=== PATIENT | male | born 1955 | race Caucasian/White ===

== ENCOUNTER → 2024-08-11 09:55 | Outpatient (REF) | payer BC, SELFPAY | LOC: RCS 09:55 | PROVIDERS: ATTENDING PHYSICIAN Internal Medicine Cardiovascular Disease; FAMILY PHYSICIAN Family Medicine | DX: R06.02 Shortness of breath (principal) | CPT/HCPCS: 93306 ==

== ENCOUNTER 2024-08-11 18:32 | Inpatient (IN) | payer BC, MEDICARE, SELFPAY ==
[2024-08-11 15:34] VITALS: BP 115/64
[2024-08-11 16:11] LABS: % Basophils 0.4 % (0-2); % Eosinophils 0.4 % (0-6); % Immature Granulocytes 0.6 % (0-0.5); % Lymphocytes 12.2 % (20.5-51.1); % Monocytes 7.8 % (1.7-9.3); % Neutrophils 78.6 % (42.2-75.2); ALT (SGPT) 17 U/L (0-50); AST (SGOT) 22 U/L (17-59); Absolute Basophils 0.1 10^3/uL (0-0.2); Absolute Eosinophils 0.1 10^3/uL (0-0.7); Absolute Immature Granulocytes 0.1 10^3/uL (0-0.05); Absolute Monocytes 1.3 10^3/uL (0.1-0.6); Absolute Neutrophils 12.7 10^3/uL (1.4-6.5); Albumin 3.4 g/dl (3.5-5.0); Alkaline Phosphatase 94 U/L (38-126); Blood Urea Nitrogen 34 mg/dl (9-20); Calcium 9.2 mg/dl (8.4-10.2); Carbon Dioxide 27 mmol/L (22-30); Chloride 98 mmol/L (98-107); Glucose 196 mg/dl (70-99); Hematocrit 34.7 % (39.0-52.0); Hemoglobin 11.3 g/dL (13.0-18.0); Mean Corp Hgb Conc. 32.6 g/dL (33.0-37.0); Mean Corpuscular Hgb 27.8 pg (27.0-31.0); Mean Corpuscular Volume 85.5 fL (80.0-94.0); Mean Platelet Volume 10.9 fL (7.4-10.4); Nucleated Red Blood Cells % 0 % (-); Platelet Count 361 10^3/uL (130-400); Potassium 5.1 mmol/L (3.5-5.1); Red Blood Cell Count 4.06 10^6/uL (4.70-6.10); Red Cell Dist. Width 13.1 % (11.5-14.5); Sodium 135 mmol/L (135-145); Total Bilirubin 0.8 mg/dl (0.2-1.3); Total Protein 6.9 g/dl (6.3-8.2); White Blood Cell Count 16.1 10^3/uL (4.8-10.8); eGFR 49.47
[2024-08-11 16:22] LABS: COVID-19 Antigen Negative (Negative)
[2024-08-11 16:25] LABS: Troponin I 0.095 ng/ml
--- NOTE | 2024-08-11 16:36 | ED.GENMED ---
History of Present Illness
General
Chief Complaint: Chest Problem
Time Seen by Provider: 08/11/24 16:28
History of Present Illness
History of Present Illness:
69-year-old male presents to the emergency department for evaluation of dry cough, dizziness and shortness of breath with ambulation, fatigue and intermittent fevers for the past 3 months or more. He was seen at [facility] 10 days
ago where extensive workup was not revealing of acute pathology. He was referred to follow-up with his nutritional health coach due to new heart murmur and had an echocardiogram today concerning for a vegetation of the mitral valve. He was referred to the ED
today for admission and IV antibiotics
Review of Systems
Review of Systems
Allergies reviewed?: Yes
All Other Systems: ROS reviewed and negative except as documented in HPI and ROS
Phy Exam
Physical Exam
Physical Exam:
GEN: Well appearing, NAD, WDWN
Eyes: PERRLA, EOMs intact, no scleral icterus
HENT: NCAT, oral mucosa moist
Lungs: CTAB, no wheezes, rales, rhonchi, normal chest wall excursion, frequent dry cough noted
Cardiac: RRR, mild murmur heart best at RUSB
Abdomen: S, NT, ND, NABS, no masses or hepatosplenomegaly
Neuro: AO x 3
MSK: No gross deformity or ecchymosis. No edema. No digital clubbing
Skin: No rashes, petechiae. Normal color, no pallor or jaundice.
Psych: Calm, cooperative, proper hygiene
Course
Orders/Labs/Results
Orders:
Orders
08/11/24 Dinner
2000 calorie (17 carb) Diabetic
08/11/24 15:26
Electrocardiogram (*1) Urgent
Reason for Study: Chest Pain
EKG- Treatment ONCE
08/11/24 15:44
COVID-19 Antigen Urgent
Source: Nasal Swab
Complete Blood Count/With Diff Urgent
Comprehensive Metabolic Panel Urgent
Erythrocyte Sed Rate Urgent
Comment: ADD ON
Ferritin Urgent
Comment: ADD ON
Folate Urgent
Comment: ADD ON
Iron Urgent
Comment: AD ON
NT-proBNP Urgent
Comment: ADD ON
Reticulocyte Count Urgent
Comment: ADD ON
Total Iron Binding Urgent
Comment: ADD ON
Troponin I Urgent
Vitamin B12 Urgent
Comment: ADD ON
INF RAPID [Influenza A+B Rapid Molecular] Urgent
STEVE Source: Nasal Swab
Specimen Description:
08/11/24 16:29
CR Chest - 2 Views Urgent
Comment:
Reason For Exam: SOB
08/11/24 16:36
Add On- LAB Urgent
Tests Added?: BNP
08/11/24 16:49
Blood Culture Urgent
STEVE Source: Blood/Venous
Specimen Description:
Cefepime HCl [Maxipime] 2,000 mg IV NOW STA
08/11/24 16:56
Blood Culture Q30M
STEVE Source: Blood/Venous
Specimen Description:
08/11/24 17:00
Blood Culture Q30M
STEVE Source: Blood/Venous
Specimen Description:
08/11/24 17:04
Sterile Water [Sterile Water For Injection] 20 ml .ROUTE .STK-MED
08/11/24 17:13
Vancomycin [Vancocin] 2,000 mg 0.9% Sodium Chloride 500 ml [Nss] 500 ml IV NOW
08/11/24 17:14
Acetaminophen [Tylenol] 1,000 mg PO NOW STA
08/11/24 17:17
Add On- LAB Urgent
Tests Added?: ESR, sed rate
08/11/24 17:41
Admit/Transfer Patient As Directed
Co-Sign Provider:
Level of Care: Inpatient admission
Assign to:: IVU
Physician / Group: Jeanne
Diagnosis: Endocarditis
Reason for Hospitalization: IV antibiotics, ID consult, cardio consult
Expected length of stay greater than two midnights?: Yes
ELOS- Estimated Length of Stay in days: 7
I certify the patient meets the requirements for IP care: Yes
08/11/24 17:43
PRN Pain Medication Management As Directed
May give lesser potent ordered pain med per pt: Yes
preference::
Protocol:: Medication orders for pain may be administered in a
manner that supports deferring to patient preference
when the pt is:
- Requesting an ordered lesser potent pain medication.
Least to most potent pain medications are defined
as: acetaminophen < NSAID < tramadol < opioids
(morphine, oxycodone, hydromorphone).
- Requesting a lesser dose of the same medication IF
ORDERED.
- Requesting a less intrusive route of administration
if both routes are prescribed by the provider (PO <
IV).
08/11/24 17:45
Code Status As Directed
Resuscitation Status: Full Code
08/11/24 17:50
0.9% Sodium Chloride 500 ml [Nss] 500 ml IV BOLUS
08/11/24 18:02
Add On- LAB Routine
Tests Added?: iron, ferritin, TIBC, retic, B12, folate
08/11/24 19:57
0.9% Sodium Chloride 1000 ml [Nss] 1,000 ml IV 80 mls/hr
Acetaminophen [Tylenol] 650 mg PO Q6HPRN PRN
Benzonatate [Tessalon Perles] 100 mg PO TIDPRN PRN
Dextrose 50%-Water [Dextrose 50% Syringe] 12.5 grams IV [id number] PRN
Enoxaparin Sodium [Lovenox] 40 mg SC QPM
Glucagon [GlucaGen] 1 mg IM PRN PRN
08/11/24 19:57
CARDIOLOGY CONSULT Routine
Consulting Provider: Dean Garcia
Was physician already notified: Yes
Cardiothoracic Surgery Consult Routine
Consulting Provider: Juarez Hart
Was physician already notified: Yes
DIETARY CONSULT Routine
Reason for Consult: malnutrition
INFECTIOUS DISEASE CONSULT Routine
Consulting Provider: Lay Santos
Was physician already notified: Yes
Activity As Directed
Activity Level: Ambulate
Bedside Glucose Monitoring As Directed
Frequency: AC&HS
Additional Instructions:: Change to q6h if pt on TPN, tube feeding or not eating
Orthostatic Vital Signs As Directed
Orthostatic VS Frequency: Now
Ot Eval And Treat Routine
Pt Eval And Treat Routine
Activity Level: Ambulate
DX Deep Vein Thrombosis Video Routine
08/11/24 22:00
Troponin I Q6H
08/12/24 04:00
Troponin I Q6H
08/12/24 06:00
CBC/With Diff [Complete Blood Count/With Diff] IN AM
CMP [Comprehensive Metabolic Panel] IN AM
Glycohemoglobin (HgbA1c) IN AM
Blood Culture Routine
STEVE Source: Blood/Venous
Specimen Description:
08/12/24 07:30
Insulin Aspart Corrective Low [Novolog Flexpen-Low Resistance] See Protocol SC AC
08/12/24 08:00
Aspirin Chewable [Low Strength Aspirin] 81 mg PO DAILY
Rosuvastatin Calcium [Crestor] 5 mg PO DAILY
08/13/24 06:00
CBC/With Diff [Complete Blood Count/With Diff] IN AM
CMP [Comprehensive Metabolic Panel] IN AM
Abnormal Lab Results
08/11/24
15:44
WBC 16.1 H 10^3/uL
(4.8-10.8)
RBC 4.06 L 10^6/uL
(4.70-6.10)
Hgb 11.3 L g/dL
(13.0-18.0)
Hct 34.7 L %
(39.0-52.0)
MCHC 32.6 L g/dL
(33.0-37.0)
MPV 10.9 H fL
(7.4-10.4)
Abs Immat Gran (auto) 0.1 H 10^3/uL
(0-0.05)
Absolute Neuts (auto) 12.7 H 10^3/uL
(1.4-6.5)
Absolute Monos (auto) 1.3 H 10^3/uL
(0.1-0.6)
Immature Gran % 0.6 H %
(0-0.5)
Neutrophils % 78.6 H %
(42.2-75.2)
Lymphocytes % 12.2 L %
(20.5-51.1)
ESR 69 H mm/hour
(0-20)
BUN 34 H mg/dl
(9-20)
Creatinine 1.5 H mg/dL
(0.7-1.3)
Glucose 196 H mg/dl
(70-99)
Iron 30 L ug/dl
(49-181)
% Saturation 11 L %
(20-50)
Troponin I 0.095 H* ng/ml
Albumin 3.4 L g/dl
(3.5-5.0)
08/11/24 15:44
08/11/24 15:44
Vital Signs
Initial and Last Documented VS:
Initial Vital Signs
Temp Pulse Resp BP Pulse Ox
101.0 F H 76 18 115/64 98
08/11/24 15:34 08/11/24 15:34 08/11/24 15:34 08/11/24 15:34 08/11/24 15:34
Last Documented Vital Signs
Temp Pulse Resp BP Pulse Ox
97.9 F 63 20 93/62 97
08/11/24 19:54 08/11/24 18:15 08/11/24 19:54 08/11/24 18:00 08/11/24 19:54
MDM/Problems Addressed
MDM/Problems Addressed:
69-year-old male presents due to suspected endocarditis based on outpatient echo showing vegetations on the mitral valve. 3 sets of blood cultures are sent and broad-spectrum IV antibiotics initiated, will be admitted to the medical service.
Initial empiric antibiotics given as the patient is acutely febrile after cultures were sent
*Critical Care Note
Total Time (30-74mins, 75-104mins- exclusive of procedures): Not Applicable
ED Attending Note
-
Portions of this chart may have been created with voice recognition software.� Occasional wrong word or��sound alike� substitutions may have occurred due to the inherent limitations of voice recognition software.
Discharge Plan
Departure
Patient Disposition: Admit
Date of Disposition: 08/11/24
Time of Disposition: 17:10
Admit to: Med/Surg
Presentation/result/management discussed w/ accepting MD/DO: Hospitalist
Discharge Problem:
Endocarditis
Interventions
Interventions:
*Risk Screen - Suicide Last Done: 08/11/24 15:34
*General Assessment Last Done: 08/11/24 15:34
*Neglect/Abuse Screening Last Done: 08/11/24 15:34
ED- Fall Risk Assessment Last Done: 08/11/24 16:39
*ED COVID-19 Vaccine History Last Done: 08/11/24 15:34
*Nursing Disposition Last Done: 08/11/24 19:58
ED- Cardiac Assessment Last Done: 08/11/24 16:39
ED- Pulmonary Assessment Last Done: 08/11/24 16:39
Discharge Date and Time
Discharge Date/Time: 08/11/24 19:59
[2024-08-11 16:39] VITALS: BMI 30.4
[2024-08-11 16:44] VITALS: BP 98/62
[2024-08-11 17:00] VITALS: BP 99/67
[2024-08-11] MEDS: MAXIPIME 2000 MG IV (17:05)
[2024-08-11] MEDS: TYLENOL 1000 MG PO (17:19)
[2024-08-11 17:25] LABS: NT-proBNP 247 pg/ml
[2024-08-11 17:41] LABS: Erythrocyte Sed Rate 69 mm/hour (0-20)
--- NOTE | 2024-08-11 17:50 | HPS.HSE ---
Family Physician
-
Family Physician: Jesus Mullins
Chief Complaint
-
Fevers, cough, weakness
History of Present Illness
69-year-old male here with complaints of intermittent fevers, chills, weight loss, weakness, dyspnea on exertion, and cough over the past 2 months. at the bedside providing most of the history.
Apparently was seen in [facility] emergency room for the above complaints about 10 days ago and discharged without a clear diagnosis. Blood cultures at that time were not done.
He has had intermittent fevers and chills since early May. 31 pound weight loss with anorexia. Complaining of intermittent lightheadedness.
Has not seen a dentist in 2 years. Denies history of malignancy.
Recently did a fecal immunochemical test that was positive for blood. He is due to see GI as an outpatient for colonoscopy. Has never had a colonoscopy.
Medical History
Past Medical History
Past Medical History: Reports Other
Additional Past Medical History:
Essential hypertension
DM2
Hyperlipidemia
Obesity
Past Surgical History: Reports Other
Additional Past Surgical History:
Gastric bypass surgery over 15 years ago
Social History
Tobacco: Non-smoker
Alcohol: None
Drug: None
Personal:
Living: With Family
Family History
Family History: CAD (Father at the age of 67 due to DE) and Cancer (Mother at the age of 73, colon cancer)
Allergies / Home Medications
Allergies reflects when Allergies were last updated in [facility].
Home Medications with original date entered in [facility]
Allergy/Medication List:
Allergies
Allergy/AdvReac Type Severity Reaction Status Date / Time
No Known Allergies Allergy Verified 08/11/24 15:38
Home Medications
aspirin 81 mg chewable tablet 81 mg PO DAILY 08/11/24
benzonatate 100 mg capsule 100 mg PO TIDPRN PRN cough 08/11/24
ipratropium bromide 21 mcg (0.03 %) nasal spray 2 spray intranasal BIDPRN PRN congestion 08/11/24
metformin 500 mg tablet,extended release 24hr (osmotic) 1,000 mg PO DAILY 08/11/24
metformin 500 mg tablet,extended release 24hr (osmotic) 500 mg PO QPM 08/11/24
olmesartan 40 mg-amlodipine 5 mg-hydrochlorothiazide 12.5 mg tablet 1 tab PO DAILY 08/11/24
ondansetron HCl 8 mg tablet 8 mg PO Q8HPRN PRN nausea 08/11/24
rosuvastatin 5 mg tablet 5 mg PO DAILY 08/11/24
semaglutide 14 mg tablet (Rybelsus) 14 mg PO DAILY 08/11/24
therapeutic multivitamin 1 tab PO DAILY 08/11/24
Review of Systems
-
History Source: Patient and Family
A 12 point ROS was completed and negative except as noted: Yes
Constitutional: Reports Fever and Weight Loss
Respiratory: Reports Cough
Physical Exam
Vital Signs
Vital Signs
Temp Pulse Resp BP Pulse Ox
101.3 F H 64 17 99/67 97
08/11/24 16:39 08/11/24 17:00 08/11/24 17:00 08/11/24 17:00 08/11/24 17:00
Physical Exam
General: Well Developed, Well Nourished, No Apparent Distress and Comfortable
HEENT: NormoCephalic, Anicteric and Moist mucous membranes
Respiratory: Clear
Cardiac: S1/S2, Regular Rhythm and Murmur (2 out of 6 systolic murmur left sternal border)
GI: Soft, Non Tender and Non Distended
Genito-urinary: Deferred by me
Musculoskeletal: No Clubbing, No Cyanosis and No Edema
Skin: Warm and Dry
Neuro: AO x 3
Hematologic/Lymphatic: No Lymphadenopathy
Psych: Calm
Laboratory Results
-
08/11/24 15:44
08/11/24 15:44
Laboratory Results
Total Bilirubin 0.8 mg/dl (0.2-1.3) 08/11/24 15:44
AST 22 U/L (17-59) 08/11/24 15:44
ALT 17 U/L (0-50) 08/11/24 15:44
Alkaline Phosphatase 94 U/L (38-126) 08/11/24 15:44
Troponin I 0.095 ng/ml H* 08/11/24 15:44
Impression/Plan
-
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 Mild mitral
regurgitation. Concern for perforation of the anterior leaflet.
Admit to IVU. Consult cardiology, infectious disease, CT surgery.
3 sets of blood culture sent by the emergency room. Received a dose of cefepime by the ER, hold further antibiotics. Discussed with ID. Recheck blood cultures in the morning.
Source of endocarditis unclear but most likely dental in origin. Has not seen a dentist in 2 years.
ALICIA -likely due to volume depletion due to anorexia, due to suspected endocarditis. Hypotension noted. Hold antihypertensives. IV fluid bolus now, continue IV fluids overnight.
Troponin elevation -suspect acute nonischemic myocardial injury due to sepsis. No reports of chest pain. Will trend troponins. EKG with normal sinus rhythm, left axis deviation.
Normocytic anemia -most likely due to endocarditis. Heme positive stools by history concerning, scheduled for outpatient GI follow-up and colonoscopy. Check anemia labs.
Protein/calorie malnutrition -31 pound weight loss in 2 months. Albumin 3.4. Severity of malnutrition unknown. Consult nutrition.
DM 2 with hyperglycemia -hold metformin, semaglutide. Use low resistance insulin scale, check hemoglobin A1c.
Essential hypertension -as above, hold meds due to hypotension.
Hyperlipidemia -on rosuvastatin.
Obesity due to excess calories -history of gastric bypass.
Full code
updated at the bedside
[2024-08-11 18:00] VITALS: BP 93/62
[2024-08-11] MEDS: NSS 500 IV (18:02)
--- NOTE | 2024-08-11 18:16 | W.PN.CD ---
Today's Communication / Plan
-
ID Consult
Abx
Impression / Plan
-
A: 69-year-old male with intermittent fevers chills weight loss over the last 2 months who came into the cardiology office after echocardiogram showed concerning signs of endocarditis involving the mitral valve.
Plan:
Likely mitral valve endocarditis
-Blood cultures prior to antibiotics
-ID consult for antibiotics
-BRENDA Wednesday n.p.o. after midnight Wednesday
-Daily EKGs
Hyperlipidemia
-Continue statin
Hypertension
-Consider holding given borderline blood pressure
Physical Exam
Vital Signs/Labs
Vital Signs
Temp Pulse Resp BP Pulse Ox
99.1 F 60 17 99/67 96
08/11/24 18:09 08/11/24 17:45 08/11/24 17:45 08/11/24 17:00 08/11/24 17:45
08/10/24 08/11/24 08/12/24
06:59 06:59 06:59
Actual Weight 211 lb 13.828 oz
08/11/24 15:44
08/11/24 15:44
08/11/24
15:44
Vis-C-Yniyfjukjaa Pept 247
LAB Results
08/11/24
15:44
Troponin I 0.095 H*
Physical Exam
Constitutional: No acute distress
EENT: Anicteric
Cardiovascular: Rhythm & rate is regular and Pedal edema is absent
Respiratory: Respiratory effort normal and Lungs clear to auscul.
GI: Soft
Neuro/Psych: AO x 3
Data Reviewed
-
Date of Service: August 11, 2024
EKG: Tracing Personally Visualized and interpreted (sr)
Echo: Tracing Personally Visualized and interpreted
Labs: Labs Reviewed by me
[2024-08-11 18:19] LABS: Reticulocyte Count 1.4 % (0.4-2.8)
[2024-08-11 18:35] LABS: Iron 30 ug/dl (49-181)
[2024-08-11 18:44] LABS: Percent Saturation 11 % (20-50); Total Iron Binding Capacity 272 ug/dl (261-462)
[2024-08-11 19:42] LABS: Folate 18.7 ng/ml (2.76-20); Vitamin B12 457 pg/ml (239-931)
[2024-08-11 19:53] VITALS: BP 102/64
[2024-08-11] MEDS: LOVENOX 40 MG SC (20:12)
[2024-08-11] MEDS: NSS 1000 IV (20:13)
[2024-08-11 21:06] LABS: Glucose - Point of Care 184 mg/dl (70-99)
[2024-08-11 22:04] VITALS: BP 99/62
--- NOTE | 2024-08-11 22:30 | PTCARENOTE ---
Received patient from the ED. Patient awake, alert, and oriented. bedside. BP 102/64, Sinus di 50s, 97% on room air and temp 98.0. Discussed plan of care with patient. Patient verbalized understanding. Call nixon within reach.
[2024-08-11 22:43] LABS: Troponin I 0.074 ng/ml
[2024-08-12 04:28] VITALS: BP 118/70
[2024-08-12 04:48] LABS: % Basophils 0.4 % (0-2); % Eosinophils 1.4 % (0-6); % Immature Granulocytes 0.6 % (0-0.5); % Lymphocytes 15.2 % (20.5-51.1); % Monocytes 9.6 % (1.7-9.3); % Neutrophils 72.8 % (42.2-75.2); Absolute Basophils 0.1 10^3/uL (0-0.2); Absolute Eosinophils 0.2 10^3/uL (0-0.7); Absolute Immature Granulocytes 0.1 10^3/uL (0-0.05); Absolute Lymphocytes 1.9 10^3/uL (1.2-3.4); Absolute Monocytes 1.2 10^3/uL (0.1-0.6); Hematocrit 34.4 % (39.0-52.0); Hemoglobin 10.6 g/dL (13.0-18.0); Mean Corp Hgb Conc. 30.8 g/dL (33.0-37.0); Mean Corpuscular Hgb 27.2 pg (27.0-31.0); Mean Corpuscular Volume 88.2 fL (80.0-94.0); Mean Platelet Volume 10.2 fL (7.4-10.4); Nucleated Red Blood Cells % 0 % (-); Platelet Count 305 10^3/uL (130-400); Red Cell Dist. Width 13.3 % (11.5-14.5); White Blood Cell Count 12.4 10^3/uL (4.8-10.8)
[2024-08-12 05:07] LABS: ALT (SGPT) 16 U/L (0-50); AST (SGOT) 22 U/L (17-59); Alkaline Phosphatase 78 U/L (38-126); Blood Urea Nitrogen 33 mg/dl (9-20); Calcium 8.8 mg/dl (8.4-10.2); Carbon Dioxide 25 mmol/L (22-30); Chloride 102 mmol/L (98-107); Estimated Creatinine Clearance 72 ml/min; Glucose 156 mg/dl (70-99); Sodium 138 mmol/L (135-145); Total Bilirubin 0.7 mg/dl (0.2-1.3); Total Protein 6.5 g/dl (6.3-8.2); eGFR > 60.00
[2024-08-12 05:30] LABS: Troponin I 0.049 ng/ml
--- NOTE | 2024-08-12 07:28 | CONSULT.CT ---
Addendum entered and electronically signed by Juarez Hart MD 08/12/24 09:15:
I saw and examined the patient.
The PA's note was reviewed and I agree with the note.
Comment:
Check BRENDA (plan is for Wednesday)
F/U BCx
Continue ABX
Original Note:
Consultation
-
Date/Time Consultation Requested: 08/11 1957
Date/Time Consultation Performed: 08/12 730
Requesting Provider: Dr. Couch
Performing Provider: Yeimi BLACKWELL for Dr. Hart
Reason for Consultation: Endocarditis
Patient History
Physicians
Family Physician: Jesus Mullins
Inpatient Sleeve Wheel Maker: Dr. Smith
History of Present Illness
69-year-old male presented to [facility] on 08/11 with complaints of fevers, chills, weight loss, weakness, ARMIJO, and cough over the past 2 months. He was at [facility] emergency room about 10 days ago with similar symptoms and
was discharged. He has had intermittent fevers and chills since May and has a 30 pound weight loss. Along with the weight loss patient admits to doing a fecal immunochemical test that was positive for blood and was due to see a
oil well services field supervisor for a colonoscopy on wednesday.
Upon admission, an echocardiogram was performed. TTE showed a LVEF of 65-70% a mildly dilated RV, moderate LA dilatation, and a possible mass on the anterior leaflet of the mitral valve causing mild MR. Therefore CT surgery was consulted for
surgical evaluation.
Past Medical History
Past Medical History: HTN and Hypercholesterolemia
DM2
Obesity
Past Surgical History
Gastric bypass surgery
Dental History
Has not seen a dentist in years
Family History
Mother: Cause of (Cancer)
Father: Cause of (AR)
Family Medical History: CAD
Social History
Alcohol: None
Drug: None
Tobacco: Non-Smoker
Personal:
Living: With Family
Employment: Retired
Allergies
Allergy/AdvReac Type Severity Reaction Status Date / Time
No Known Allergies Allergy Verified 08/11/24 15:38
Home Medications
�Medication �Instructions �Recorded �Confirmed �Type
aspirin 81 mg chewable tablet 81 mg PO DAILY 08/11/24 08/11/24 History
benzonatate 100 mg capsule 100 mg PO TIDPRN PRN cough 08/11/24 08/11/24 History
ipratropium bromide 21 mcg (0.03 2 spray intranasal BIDPRN PRN 08/11/24 08/11/24 History
%) nasal spray congestion
metformin 500 mg tablet,extended 1,000 mg PO DAILY 08/11/24 08/11/24 History
release 24hr (osmotic)
metformin 500 mg tablet,extended 500 mg PO QPM 08/11/24 08/11/24 History
release 24hr (osmotic)
olmesartan 40 mg-amlodipine 5 1 tab PO DAILY 08/11/24 08/11/24 History
mg-hydrochlorothiazide 12.5 mg
tablet
ondansetron HCl 8 mg tablet 8 mg PO Q8HPRN PRN nausea 08/11/24 08/11/24 History
rosuvastatin 5 mg tablet 5 mg PO DAILY 08/11/24 08/11/24 History
semaglutide 14 mg tablet (Rybelsus) 14 mg PO DAILY 08/11/24 08/11/24 History
therapeutic multivitamin 1 tab PO DAILY 08/11/24 08/11/24 History
Review of Systems
-
History Source: Patient and Family
General: Reports Fever, Weight Loss, Fatigue, Night Sweats and Chills
HEENT: Reports No Symptoms
Respiratory: Reports Cough
Cardiac: Reports No Symptoms
Abdomen/GI: Reports Nausea, Vomiting and Diarrhea
: Reports No Symptoms
Musculoskeletal: Reports No Symptoms
Skin: Reports No Symptoms
Neurological: Reports No Symptoms
Vascular: Reports No Symptoms
Physical Exam
Vital Signs
Temp 98.2 F 08/12/24 04:42
Temp route: Oral 08/12/24 04:42
Pulse 57 08/12/24 05:00
Rhythm: Sinus bradycardia 08/11/24 22:53
With- Normal sinus rhythm 08/11/24 22:53
Resp Rate 16 08/12/24 04:42
Blood pressure 118/70 08/12/24 04:28
Blood pressure extremity used: Right upper arm 08/12/24 04:42
Position: Lying 08/12/24 04:42
MAP (cuff-Noah Monitor) 85 08/12/24 04:28
SaO2 95 08/12/24 04:42
Oxygen Mode of Delivery Room air 08/11/24 22:53
Can the patient verbally communicate their pain? Yes 08/11/24 22:53
Actual Weight 96.1 kg 08/11/24 16:39
Body Mass Index (BMI) 30.4 08/11/24 16:39
Labs
08/12/24 04:36
08/12/24 04:35
Troponin I 0.049 ng/ml H* D 08/12/24 04:35
Mot-P-Irhzxjobfge Pept 247 pg/ml 08/11/24 15:44
Exam
General: Well Developed and Well Nourished
HEENT: Normocephalic
Respiratory: Clear
Cardiac: S1/S2 and Murmur
GI: Soft
Rectal: Deferred by Provider
Skin: Warm and Dry
Neuro: AO x 3
Extremities: Pulses (+1)
Lymph: No Lymphadenopathy
Psych: Calm
Assessment / Plan
-
69-year-old male with past medical history listed above presented to [facility] with complaints of fever chills and 30 pound weight loss. TTE revealed a possible endocarditis and CT surgery was consulted for surgical evaluation.
#Possible endocarditis
-Follow-up blood cultures, trend temperatures and leukocytosis
-Agree with BRENDA on Wednesday
-Agree with ID consult
-Once patient is deemed a surgical candidate, preoperative workup will be started
#History of heme positive stools
- Continue to test stools while in the hospital
� Continue to trend hemoglobin
--- NOTE | 2024-08-12 08:00 | PTCARENOTE ---
Received patient from prev Rn. walking rounds done. patient resting in bed at time of assessment. at bedside. Patient AAOx3. VSS. SB HR 40s. 97% on RA. IVFs infusing as ordered. independent in care. will continue to monitor.
--- NOTE | 2024-08-12 08:30 | CON.ID ---
Consultation
-
Date/Time Consultation Requested: 08/11/20241956
Date/Time Consultation Performed: 08/12/2024 0835
Requesting Provider: Dr. Khoa Angel
Performing Provider: Dr. Lay Santos
Reason for Consultation: Mitral valve vegetation
Chief Complaint / Past History
Chief Complaint
Fever x 2 months
History of Present Illness
History obtained from the patient as well as from his who is a nurse. He is a 69-year-old male with history of hypertension, DM2, who has not been feeling well for the past 2 months. He has been having intermittent fevers, chills, poor
appetite, unintentional 30 pound weight loss, dry cough. PCP workup unremarkable. He went to [facility] ER about a week and a half ago with normal chest x-ray, negative DVT, no blood cultures obtained per . He was discharged to follow-up
with his PCP. Patient also noted to be bradycardia. Patient was seen by cardiology yesterday in office. Transthoracic echocardiogram noted to have a vegetation on the mitral valve. Patient sent to the ER. He is febrile to 101.3 WBC 16.1.
Blood cultures x 3 are now positive for GPC in chains. Patient did receive cefepime in the ER. Patient reports in February, he stepped on a sarah nail that went through his right foot sneaker. He received tetanus shot. The wound healed. No recent
dental work. Never had a colonoscopy. Recently FIT test was positive. 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
Past History
Additional Past Medical History:
DM
Dyslipidemia
HTN
Hx Gastric Bypass
Allergy History:
No Known Allergies Allergy (Verified 08/11/24 15:38)
Medications Reviewed: Yes
Current Antibiotics:
s/p cefepime in ED
Social History
Tobacco: Non-Smoker
Alcohol: None
Drug: None
Personal:
Living: With Family
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
Family History
Family History: Not Pertinent
Review of Systems
Review of Systems
General: Fever, Chills and Change in Appetite
HEENT: Negative Sinus Problems, Headache or Pharyngitis
Cardiovascular: Negative Chest Pain or Dyspnea
Respiratory: Cough; Negative Dyspnea
Gasteroenterology: Nausea; Negative Vomiting or Diarrhea
Genital / Urological: Negative Dysuria or Flank Pain
Endocrine: Weakness
Musculoskeletal: Negative Arthralgias
Neurological: Negative Dizziness
All systems: All other systems were reviewed and were negative
Vital Signs
Temp Pulse Resp BP Pulse Ox
98.2 F 57 16 118/70 95
08/12/24 04:42 08/12/24 05:00 08/12/24 04:42 08/12/24 04:28 08/12/24 04:42
Selected Entries
08/11/24
16:39
Temp 101.3 F H
Physical Exam
Physical Exam
Constitutional: Comfortable
Eyes: No Conjunctival Hemorrhage and Sclera Anicteric
Oral: Poor Dentition
Cardiovascular: Regular Rate and S1/S2
Pulmonary: Clear
Gastrointestinal: Soft, Non Tender, Non Distended and Normal Bowel Sounds
Genito-Urinary: Negative CVA Tenderness
Extremities: Negative Edema, Splinter Hemorrhage or Janeway Lesions
Musculoskeletal: Negative Spinal Tenderness
Neurological: AO x 3; Negative Meningeal Signs
Psychological: Calm
Lab / Diagnostic Study Results
08/12/24 04:36
08/12/24 04:35
Abs Immat Gran (auto) 0.1 10^3/uL (0-0.05) H 08/12/24 04:36
Absolute Neuts (auto) 9.0 10^3/uL (1.4-6.5) H 08/12/24 04:36
Absolute Lymphs (auto) 1.9 10^3/uL (1.2-3.4) 08/12/24 04:36
Absolute Monos (auto) 1.2 10^3/uL (0.1-0.6) H 08/12/24 04:36
Absolute Basos (auto) 0.1 10^3/uL (0-0.2) 08/12/24 04:36
Immature Gran % 0.6 % (0-0.5) H 08/12/24 04:36
Neutrophils % 72.8 % (42.2-75.2) 08/12/24 04:36
Lymphocytes % 15.2 % (20.5-51.1) L 08/12/24 04:36
Monocytes % 9.6 % (1.7-9.3) H 08/12/24 04:36
Eosinophils % 1.4 % (0-6) 08/12/24 04:36
Basophils % 0.4 % (0-2) 08/12/24 04:36
ESR 69 mm/hour (0-20) H 08/11/24 15:44
Microbiology Results
Micro:
08/11/24 16:56 Blood Culture - Preliminary
Blood/Venous Positive culture in progress
Gram Stain - Preliminary
08/11/24 17:00 Blood Culture - Preliminary
Blood/Venous Positive culture in progress
Gram Stain - Final
08/11/24 16:49 Blood Culture - Preliminary
Blood/Venous Positive culture in progress
Gram Stain - Preliminary
08/12/24 04:35 Blood Culture - Pending
Blood/Venous
08/11/24 15:44 Influenza Types A & B (JUDIE) - Final
Nasal Swab Negative for Influenza A & B, NAAT
Negative results must be combined with clinical observations
and patient history.
Nucleic Acid Amplification test (NAAT)performed on the
[employer] platform.
CXR: No acute disease of the chest.
Assessment / Plan
# Mitral valve infective endocarditis
# GPC chains bacteremia x 3 sets
# Sepsis: fever, leukocytosis
# Sinus bradycardia
# FIT positive, never had colonoscopy
- Suspect Streptococcus (viridans vs bovis vs NVS)
- Start ceftriaxone 2g IV q12 pending cx data
- Add Vancomycin empiric coverage for enterococcus pending cx data.
- repeat blood cx's in am.
- BRENDA Wednesday, per Cardiology
- Trend temps, leukocytosis
# Conditions RING SEWER
DM
Dyslipidemia
HTN
Hx Gastric Bypass
Care Review
Plan reviewed with: Physician (Dr. Angel)
--- NOTE | 2024-08-12 08:40 | W.PN.HOSP.TC ---
Today's Communication/Plan
-
Continue antibiotics
Follow-up cultures
TSH
BRENDA on Wednesday
Assessment / Plan
Assessment / Plan
Gen-AAOx3, NAD
HEENT-NC, AT, anicteric, clear oral mm
Neck-supple
CV-reg, no M, +S1/S2
Lungs-clear B/L
Abd-soft, NT, ND
Ext-no edema
Musculoskeletal-no cyanosis, clubbing
Skin-warm and dry
Neuro-grossly non-focal
Psych-calm, cooperative
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 Mild mitral
regurgitation. Concern for perforation of the anterior leaflet. BRENDA planned for Wednesday.
CT surgery consulted.
Blood cultures positive for gram-positive in chains. Currently on IV vancomycin.
Source of bacteremia unclear, differential diagnosis includes dental versus GI versus other.
Sinus bradycardia noted, check TSH.
ALICIA -likely due to volume depletion due to anorexia, due to suspected endocarditis. ALICIA improving with IV fluids.
Troponin elevation -suspect acute nonischemic myocardial injury due to sepsis. No reports of chest pain. EKG with normal sinus rhythm, left axis deviation. Troponin trending down.
Normocytic anemia -most likely due to endocarditis. Heme positive stools by history concerning (positive FIT test). Has never had a colonoscopy. Was scheduled to see GI as an outpatient next week, will need to reschedule.
Protein/calorie malnutrition -31 pound weight loss in 2 months. Albumin 3.4. Severity of malnutrition unknown. Consult nutrition.
DM 2 with hyperglycemia -hold metformin, semaglutide. Use low resistance insulin scale, check hemoglobin A1c. Glucose 156 this morning.
Essential hypertension -hypotension improving, continue to hold antihypertensives.
Hyperlipidemia -on rosuvastatin.
Obesity due to excess calories -history of gastric bypass.
Full code
updated at the bedside.
Anticipated Discharge: > 48 hours
Subjective/Interval History
-
Date of Service: August 12, 2024
Patient seen and examined. No complaints. Appetite is improving.
Objective Data
-
Labs:
Laboratory Results
08/12/24 08/12/24
04:35 04:36
WBC 12.4 H
Hgb 10.6 L
Hct 34.4 L
Plt Count 305
Sodium 138
Potassium 5.0
Chloride 102
Carbon Dioxide 25
BUN 33 H
Creatinine 1.1
Glucose 156 H
Calcium 8.8
Total Bilirubin 0.7
AST 22
ALT 16
Alkaline Phosphatase 78
Vital Signs:
Vital Signs
Temp Pulse Resp BP Pulse Ox
98.2 F 57 16 118/70 95
08/12/24 04:42 08/12/24 05:00 08/12/24 04:42 08/12/24 04:28 08/12/24 04:42
Review of Systems
-
History Source: Patient
All other systems: Reviewed and negative
[2024-08-12] MEDS: LOW STRENGTH ASPIRIN 81 MG PO (08:51)
[2024-08-12] MEDS: CRESTOR 5 MG PO (08:51)
--- NOTE | 2024-08-12 09:18 | PHA.VAN.IN ---
Assessment
- Assessment
Renal Function: Unknown baseline
Renal Function may be Overestimated due to: BMI~30
Maximum Temperature: 101.3 - 08/11/24 1639
Concomitant Antimicrobials: ceftriaxone
AUC Dosing Plan
- Dosing Variables
Dosing Weight (kg): 96
Dosing CrCl (ml/min): 72
Vd coefficient (L/kg): 0.7
- Empiric Dosing
Initial / Loading Dose: 2000 mg x 1 -- adm pending
Maintenance Regimen: 1000 mg q12h - to start 2000 tonight then 0600,1800
Estimated AUC (mcg*h/mL): 479
Estimated Peak (mcg*h/mL): 27.7
Estimated Trough (mcg/ml): 13.7
Estimated Half Life (H): 10.8
- Monitoring
No levels ordered at this time: levels to be drawn when pt nears steady state
Pharmacokinetics Vancomycin I
- -
Patient Age: 69
Patient Sex: Male
Vancomycin Day #: 1
Indication: Bacteremia
Requesting Provider: Tom
Height / Weight:
Height 5 ft 10 in
Actual Weight 96.1 kg
Pertinent Past Medical History: BMI 30
- Vital Signs / Lab Results
Temp Pulse Resp BP Pulse Ox
98.2 F 57 16 118/70 95
08/12/24 04:42 08/12/24 05:00 08/12/24 04:42 08/12/24 04:28 08/12/24 04:42
Lab Results - Hematology
08/11/24 08/12/24
15:44 04:36
WBC 16.1 H 12.4 H
Lab Results - Chemistry
08/11/24 08/12/24
15:44 04:35
BUN 34 H 33 H
Creatinine 1.5 H 1.1
Estimated Creat Clear 72
Albumin 3.4 L 3.0 L
Microbiology Results
08/11/24 16:56 Blood Culture - Preliminary
Blood/Venous Positive culture in progress
Gram Stain - Preliminary
08/11/24 17:00 Blood Culture - Preliminary
Blood/Venous Positive culture in progress
Gram Stain - Final
08/11/24 16:49 Blood Culture - Preliminary
Blood/Venous Positive culture in progress
Gram Stain - Preliminary
08/11/24 15:44 Influenza Types A & B (JUDIE) - Final
Nasal Swab Negative for Influenza A & B, NAAT
Negative results must be combined with clinical observations
and patient history.
Nucleic Acid Amplification test (NAAT)performed on the
[employer] platform.
[2024-08-12] MEDS: NOVOLOG FLEXPEN-LOW RESISTANCE SC ×3 (09:30→16:55)
[2024-08-12] MEDS: VANCOCIN 540 MG IV (09:34)
[2024-08-12 09:38] VITALS: BP 115/67
[2024-08-12 09:58] LABS: TSH 1.35 uIU/ml (0.47-4.68)
[2024-08-12 10:00] LABS: Glycohemoglobin (HgbA1c) 8.6 % (4.0-5.6)
--- NOTE | 2024-08-12 10:50 | W.PN.CD ---
Today's Communication / Plan
-
Abx
BRENDA Wednesday
Impression / Plan
-
A: 69-year-old male with intermittent fevers chills weight loss over the last 2 months who came into the cardiology office after echocardiogram showed concerning signs of endocarditis involving the mitral valve.
Plan:
Likely mitral valve endocarditis
-Blood cultures + awaiting speciation gram + cocci in chains
-ID consulted
-BRENDA Wednesday n.p.o. after midnight Wednesday
-Daily EKGs
Hyperlipidemia
-Continue statin
Hypertension
-holding given BP
Subjective:
Feeling well no new complaints
Physical Exam
Vital Signs/Labs
Vital Signs
Temp Pulse Resp BP Pulse Ox
98.4 F 47 18 115/67 98
08/12/24 08:00 08/12/24 10:30 08/12/24 08:00 08/12/24 09:38 08/12/24 08:00
08/11/24 08/12/24 08/13/24
06:59 06:59 06:59
Actual Weight 211 lb 13.828 oz
08/12/24 04:36
08/12/24 04:35
TSH 1.35 uIU/ml (0.47-4.68) 08/12/24 04:36
08/11/24
15:44
Zno-R-Lwfgraqxldw Pept 247
LAB Results
08/11/24 08/11/24 08/12/24
15:44 22:02 04:35
Troponin I 0.095 H* 0.074 H* 0.049 H* D
Physical Exam
Constitutional: No acute distress
EENT: Anicteric
Cardiovascular: Rhythm & rate is regular and Pedal edema is absent
Respiratory: Respiratory effort normal and Lungs clear to auscul.
GI: Soft
Neuro/Psych: AO x 3
Data Reviewed
-
Date of Service: August 12, 2024
EKG: Tracing Personally Visualized and interpreted (sr)
Echo: Tracing Personally Visualized and interpreted
Labs: Labs Reviewed by me
[2024-08-12] MEDS: STERILE WATER FOR INJECTION 20 ML IV (11:50)
[2024-08-12 11:51] VITALS: BP 118/66
[2024-08-12] MEDS: ROCEPHIN 2000 MG IV (11:52)
[2024-08-12 12:01] LABS: Glucose - Point of Care 139 mg/dl (70-99)
[2024-08-12 14:35] VITALS: BMI 30.4
[2024-08-12 15:26] VITALS: BP 115/80
[2024-08-12 16:52] LABS: Glucose - Point of Care 149 mg/dl (70-99)
[2024-08-12] MEDS: LOVENOX 40 MG SC (18:26)
[2024-08-12 19:23] VITALS: BP 116/72
[2024-08-12] MEDS: VANCOCIN 200 IV (19:23)
[2024-08-12 22:16] VITALS: BP 119/84
--- NOTE | 2024-08-12 22:20 | PTCARENOTE ---
Pt received start of shift, HR SB. Pt ambulating by self in room. Family at bedside. updated pt on plan of care, pt states no questions at this time. Reinforced purpose of vancomycin w/ pt. Pt denies any weakness/fatigue, ARMIJO, or CP. Informed to
notify RN if any changes, call nixon within reach.
[2024-08-13 04:07] VITALS: BP 119/69
[2024-08-13 04:31] VITALS: BMI 30.1
[2024-08-13 04:52] LABS: % Basophils 0.6 % (0-2); % Eosinophils 2.1 % (0-6); % Immature Granulocytes 0.3 % (0-0.5); % Lymphocytes 16.5 % (20.5-51.1); % Monocytes 9.1 % (1.7-9.3); % Neutrophils 71.4 % (42.2-75.2); Absolute Basophils 0.1 10^3/uL (0-0.2); Absolute Eosinophils 0.2 10^3/uL (0-0.7); Absolute Lymphocytes 1.7 10^3/uL (1.2-3.4); Absolute Neutrophils 7.5 10^3/uL (1.4-6.5); Hematocrit 32.4 % (39.0-52.0); Hemoglobin 10.7 g/dL (13.0-18.0); Mean Corpuscular Hgb 27.8 pg (27.0-31.0); Mean Corpuscular Volume 84.2 fL (80.0-94.0); Mean Platelet Volume 10.9 fL (7.4-10.4); Nucleated Red Blood Cells % 0 % (-); Platelet Count 319 10^3/uL (130-400); Red Blood Cell Count 3.85 10^6/uL (4.70-6.10); Red Cell Dist. Width 12.9 % (11.5-14.5); White Blood Cell Count 10.5 10^3/uL (4.8-10.8)
[2024-08-13] MEDS: VANCOCIN 200 IV ×2 (05:20→18:03)
[2024-08-13 05:23] LABS: ALT (SGPT) 18 U/L (0-50); AST (SGOT) 22 U/L (17-59); Albumin 2.9 g/dl (3.5-5.0); Alkaline Phosphatase 83 U/L (38-126); Blood Urea Nitrogen 19 mg/dl (9-20); Calcium 8.7 mg/dl (8.4-10.2); Carbon Dioxide 27 mmol/L (22-30); Chloride 101 mmol/L (98-107); Estimated Creatinine Clearance 87 ml/min; Glucose 158 mg/dl (70-99); Potassium 5.2 mmol/L (3.5-5.1); Sodium 137 mmol/L (135-145); Total Bilirubin 0.4 mg/dl (0.2-1.3); Total Protein 6.2 g/dl (6.3-8.2); eGFR > 60.00
[2024-08-13 07:47] VITALS: BP 116/58
[2024-08-13 07:52] LABS: Glucose - Point of Care 212 mg/dl (70-99)
[2024-08-13] MEDS: LOW STRENGTH ASPIRIN 81 MG PO (08:17)
[2024-08-13] MEDS: CRESTOR 5 MG PO (08:17)
[2024-08-13] MEDS: NOVOLOG FLEXPEN-LOW RESISTANCE SC ×3 (08:17→17:11)
--- NOTE | 2024-08-13 08:49 | W.PN.HOSP.TC ---
Today's Communication/Plan
-
Lokelma
Continue antibiotics
Await cultures
N.p.o. after midnight
Assessment / Plan
Assessment / Plan
Gen-AAOx3, NAD
HEENT-NC, AT, anicteric, clear oral mm
Neck-supple
CV-reg, no M, +S1/S2
Lungs-clear B/L
Abd-soft, NT, ND
Ext-no edema
Musculoskeletal-no cyanosis, clubbing
Skin-warm and dry
Neuro-grossly non-focal
Psych-calm, cooperative
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 Mild mitral
regurgitation. Concern for perforation of the anterior leaflet. BRENDA planned for Wednesday.
CT surgery consulted.
Blood cultures positive for gram-positive in chains. Currently on IV vancomycin, Ceftriaxone per ID.
Source of bacteremia unclear, differential diagnosis includes dental versus GI versus other.
Sinus bradycardia noted, TSH normal.
ALICIA -likely due to volume depletion due to anorexia, due to suspected endocarditis. ALICIA improved.
Hyperkalemia -unclear etiology. ARB is on hold. Give 1 dose of Lokelma. Labs in the morning.
Troponin elevation -suspect acute nonischemic myocardial injury due to sepsis. No reports of chest pain. EKG with normal sinus rhythm, left axis deviation. Troponin trending down.
Normocytic anemia -most likely due to endocarditis. Heme positive stools by history concerning (positive FIT test). Has never had a colonoscopy. Was scheduled to see GI as an outpatient next week, will need to reschedule.
B12, folic acid normal. Iron panel consistent with a component of deficiency, ferritin in the normal range but unclear if endocarditis is causing it to be elevated as an acute phase reactant.
Severe protein/calorie malnutrition -31 pound weight loss in 2 months. Albumin 3.4. Nutrition consulted.
DM 2 with hyperglycemia -hold metformin, semaglutide. Glucose 158 this morning. Hemoglobin A1c 8.6%. Use low resistance insulin scale.
Essential hypertension -hypotension improving, continue to hold antihypertensives.
Hyperlipidemia -on rosuvastatin.
Obesity due to excess calories -history of gastric bypass.
Full code
Anticipated Discharge: > 48 hours
Subjective/Interval History
-
Date of Service: August 13, 2024
Patient seen and examined. No complaints.
Objective Data
-
Labs:
Laboratory Results
08/13/24
04:14
WBC 10.5
Hgb 10.7 L
Hct 32.4 L
Plt Count 319
Sodium 137
Potassium 5.2 H
Chloride 101
Carbon Dioxide 27
BUN 19
Creatinine 0.9
Glucose 158 H
Calcium 8.7
Total Bilirubin 0.4
AST 22
ALT 18
Alkaline Phosphatase 83
Vital Signs:
Vital Signs
Temp Pulse Resp BP Pulse Ox
99.1 F 42 20 119/69 98
08/13/24 07:45 08/13/24 06:00 08/13/24 07:45 08/13/24 04:07 08/13/24 07:45
I&O
08/12/24 08/13/24 08/14/24
06:59 06:59 06:59
Intake Total 1260 / 1260
Balance 1260 / 1260
Review of Systems
-
History Source: Patient
All other systems: Reviewed and negative
--- NOTE | 2024-08-13 09:25 | W.PN.ID1 ---
Date of Service
Date of Service: August 13, 2024
Today's Communication
BRENDA tomorrow.
Continue ceftriaxone and VAncomycin.
Assessment / Plan
# Mitral valve infective endocarditis
# GPC chains bacteremia x 3 sets
# Sepsis: fever, leukocytosis: resolving
# Sinus bradycardia
# FIT positive, never had colonoscopy
- Suspect Streptococcus (viridans vs bovis vs NVS)
- Continue ceftriaxone 2g IV q12 pending cx data
- Continue Vancomycin empiric coverage for enterococcus pending cx data.
- Follow repeat blood cx's
- BRENDA tomorrow
-
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
DM
Dyslipidemia
HTN
Hx Gastric Bypass
Chief Complaint
-: Bacteremia
Subjective / Review of Systems
Feels much improved today.
Vital Signs / Physical Exam
Vital Signs
Vital Signs
Temp Pulse Resp BP Pulse Ox
99.1 F 42 20 119/69 98
08/13/24 07:45 08/13/24 06:00 08/13/24 07:45 08/13/24 04:07 08/13/24 07:45
Physical Exam
Constitutional: No Acute Distress and Comfortable
Cardiovascular: Regular Rate and S1/S2
Pulmonary: Clear
Gastrointestinal: Soft, Non Tender, Non Distended and Normal Bowel Sounds
Extremities: Negative Edema
Neurological: AO x 3
Objective Data
Lab Data
Lab Results
08/13/24 04:14
08/13/24 04:14
ESR 69 mm/hour (0-20) H 08/11/24 15:44
Estimated Creat Clear 87 ml/min 08/13/24 04:14
Total Bilirubin 0.4 mg/dl (0.2-1.3) 08/13/24 04:14
AST 22 U/L (17-59) 08/13/24 04:14
ALT 18 U/L (0-50) 08/13/24 04:14
Alkaline Phosphatase 83 U/L (38-126) 08/13/24 04:14
Most recent labs reviewed.
Micro Results:
08/12/24 04:35 Blood Culture - Preliminary
Blood/Venous No Growth in 24 hours- Final report to follow
08/11/24 16:49 Blood Culture - Preliminary
Blood/Venous Positive culture in progress
Gram Stain - Final
08/11/24 16:56 Blood Culture - Preliminary
Blood/Venous Positive culture in progress
Gram Stain - Preliminary
08/11/24 17:00 Blood Culture - Preliminary
Blood/Venous Positive culture in progress
Gram Stain - Final
08/11/24 15:44 Influenza Types A & B (JUDIE) - Final
Nasal Swab Negative for Influenza A & B, NAAT
Negative results must be combined with clinical observations
and patient history.
Nucleic Acid Amplification test (NAAT)performed on the
[employer] platform.
CXR: No acute disease of the chest.
[2024-08-13] MEDS: LOKELMA 10 GRAM PO (10:07)
[2024-08-13] MEDS: ROCEPHIN 2000 MG IV (10:07)
[2024-08-13] MEDS: STERILE WATER FOR INJECTION 20 ML IV (10:07)
--- NOTE | 2024-08-13 10:28 | PHA.VAN.FU ---
Vancomycin Assessment / Plan
- Assessment
Renal Function: SCR Decreasing (1.5->1.1->0.9)
WBC's are: Trending Down (WNL)
In the past 24 hrs, patient has been: Afebrile
Concomitant Antimicrobials: ceftriaxone
- Dosing Plan
Continue: vancomycin 1000 mg q12h - first dose yesterday she
- Monitoring Plan
No level(s) ordered at this time: consider levels after Wednesday she dose
- Follow Up
Pharmacy will continue to follow.
Vancomycin Follow UP
- -
Patient Age: 69
Patient Sex: Male
Vancomycin Day #: 2
Indication: Bacteremia
Requesting Provider: Tom
Height / Weight:
Height 5 ft 10 in
Actual Weight 95 kg
Pertinent Past Medical History: BMI 30
- Vital Signs / Lab Results
Temp Pulse Resp BP Pulse Ox
99.1 F 42 20 119/69 98
08/13/24 07:45 08/13/24 06:00 08/13/24 07:45 08/13/24 04:07 08/13/24 07:45
Lab Results - Hematology
08/11/24 08/12/24 08/13/24
15:44 04:36 04:14
WBC 16.1 H 12.4 H 10.5
Lab Results - Chemistry
08/11/24 08/12/24 08/13/24
15:44 04:35 04:14
BUN 34 H 33 H 19
Creatinine 1.5 H 1.1 0.9
Estimated Creat Clear 72 87
Albumin 3.4 L 3.0 L 2.9 L
Microbiology Results
08/11/24 16:56 Blood Culture - Preliminary
Blood/Venous Positive culture in progress
Gram Stain - Final
08/11/24 16:49 Blood Culture - Preliminary
Blood/Venous Gram Stain - Final
08/12/24 04:35 Blood Culture - Preliminary
Blood/Venous No Growth in 24 hours- Final report to follow
08/11/24 17:00 Blood Culture - Preliminary
Blood/Venous Positive culture in progress
Gram Stain - Final
08/11/24 15:44 Influenza Types A & B (JUDIE) - Final
Nasal Swab Negative for Influenza A & B, NAAT
Negative results must be combined with clinical observations
and patient history.
Nucleic Acid Amplification test (NAAT)performed on the
[employer] platform.
--- NOTE | 2024-08-13 10:37 | W.PN.CD ---
Today's Communication / Plan
-
BRENDA Wednesday
Impression / Plan
-
A: 69-year-old male with intermittent fevers chills weight loss over the last 2 months who came into the cardiology office after echocardiogram showed concerning signs of endocarditis involving the mitral valve.
Plan:
Likely mitral valve endocarditis
-Blood cultures + awaiting speciation gram + cocci in chains
-ID consulted
-BRENDA Wednesday n.p.o. after midnight Wednesday
-Daily EKGs
Hyperlipidemia
-Continue statin
Hypertension
-holding given BP
Subjective:
Feeling well no new complaints
Physical Exam
Vital Signs/Labs
Vital Signs
Temp Pulse Resp BP Pulse Ox
99.1 F 42 20 119/69 98
08/13/24 07:45 08/13/24 06:00 08/13/24 07:45 08/13/24 04:07 08/13/24 07:45
08/12/24 08/13/24 08/14/24
06:59 06:59 06:59
Actual Weight 211 lb 13.828 oz 209 lb 7.026 oz
08/13/24 04:14
08/13/24 04:14
TSH 1.35 uIU/ml (0.47-4.68) 08/12/24 04:36
08/11/24
15:44
Xko-K-Oylntzmdddv Pept 247
LAB Results
08/11/24 08/11/24 08/12/24
15:44 22:02 04:35
Troponin I 0.095 H* 0.074 H* 0.049 H* D
Physical Exam
Constitutional: No acute distress and Comfortable
EENT: Anicteric
Cardiovascular: Rhythm & rate is regular and Pedal edema is absent
Respiratory: Respiratory effort normal and Lungs clear to auscul.
GI: Soft
Neuro/Psych: AO x 3
Data Reviewed
-
Date of Service: August 13, 2024
EKG: Tracing Personally Visualized and interpreted
Echo: Report Reviewed by me
Labs: Labs Reviewed by me
[2024-08-13 11:36] VITALS: BP 111/71
[2024-08-13 12:40] LABS: Glucose - Point of Care 237 mg/dl (70-99)
--- NOTE | 2024-08-13 15:08 | PTCARENOTE ---
Pt AOx3, no complaints of pain or discomfort. Independent OOB. SB on tele monitor, VSS. NPO @ ND for BRENDA tomorrow. Call nixon within reach.
[2024-08-13 16:12] VITALS: BP 125/75
[2024-08-13 16:51] LABS: Glucose - Point of Care 117 mg/dl (70-99)
[2024-08-13] MEDS: LOVENOX 40 MG SC (18:04)
[2024-08-13 19:32] VITALS: BP 118/66
--- NOTE | 2024-08-13 20:36 | PTCARENOTE ---
Pt received start of shift, HR SB. Pt resting comfortably in bed with at bedside. Reinforced education and NPO status at 0000 w/ pt. Pt states understanding. Pt denies any weakness or SOB - states he feels much better. Afebrile.
[2024-08-13 22:25] VITALS: BP 107/79
[2024-08-13 22:28] LABS: Glucose - Point of Care 151 mg/dl (70-99)
[2024-08-14 04:47] VITALS: BP 116/78
[2024-08-14 04:59] VITALS: BMI 29.7
[2024-08-14] MEDS: VANCOCIN 200 IV (05:00)
[2024-08-14 05:28] LABS: Blood Urea Nitrogen 16 mg/dl (9-20); Calcium 8.5 mg/dl (8.4-10.2); Carbon Dioxide 27 mmol/L (22-30); Chloride 103 mmol/L (98-107); Estimated Creatinine Clearance 87 ml/min; Glucose 156 mg/dl (70-99); Sodium 137 mmol/L (135-145); eGFR > 60.00
[2024-08-14 07:30] VITALS: BP 115/74
[2024-08-14 07:33] LABS: Glucose - Point of Care 165 mg/dl (70-99)
--- NOTE | 2024-08-14 08:15 | PTCARENOTE ---
Assumed care of pt from prev nsg shift; Pt AAOx3 w/no c/o CP or SOB at this time. Pt's VS stable w/HR 40's-50's w/BP 115/74 this AM. Report given to Mateo in the EP lab. pt taken via stretcher to EP lab at 0815. Plan of care ongoing.
[2024-08-14] MEDS: NOVOLOG FLEXPEN-LOW RESISTANCE SC ×3 (08:16→18:37)
--- NOTE | 2024-08-14 08:43 | W.PN.CD ---
Addendum entered and electronically signed by Yousif Messina MD 08/14/24 13:26:
THE VEGETATION IS ON THE A1 SCALLOP NOT THE P3 SCALLOP.
Original Note:
Today's Communication / Plan
-
Ct Surgery input
resume data
Impression / Plan
-
A: 69-year-old male with intermittent fevers chills weight loss over the last 2 months who came into the cardiology office after echocardiogram showed concerning signs of endocarditis involving the mitral valve.
Plan:
Endocarditis with large pedunculated, heterogenous vegetation on the mitral valve P3 scallop
-CT surgery to evaluation now that BRENDA complete
-Blood cultures + awaiting speciation gram + cocci in chains
-ID following
Hyperlipidemia
-Continue statin
Hypertension
-holding given BP
Subjective:
Feeling well no new complaints
Physical Exam
Vital Signs/Labs
Vital Signs
Temp Pulse Resp BP Pulse Ox
98 F 47 20 115/74 96
08/14/24 07:26 08/14/24 07:30 08/14/24 07:26 08/14/24 07:30 08/14/24 07:26
08/13/24 08/14/24 08/15/24
06:59 06:59 06:59
Actual Weight 95 kg 93.9 kg
08/13/24 04:14
08/14/24 04:53
TSH 1.35 uIU/ml (0.47-4.68) 08/12/24 04:36
08/11/24
15:44
Swo-S-Dgmjdhghtff Pept 247
LAB Results
08/11/24 08/11/24 08/12/24
15:44 22:02 04:35
Troponin I 0.095 H* 0.074 H* 0.049 H* D
Physical Exam
Constitutional: No acute distress
Cardiovascular: Rhythm & rate is regular, Pedal edema is absent and Systolic murmur present (2/6 HSM in the apex)
Respiratory: Lungs clear to auscul., Wheeze Absent, Crackles Absent and Rhonchi Absent
Neuro/Psych: AO x 3
Data Reviewed
-
Date of Service: August 14, 2024
Medical Decision Making: Review of Case with other Provider (discussed BRENDA finding with Dr Lopez and Dr meier)
--- NOTE | 2024-08-14 09:24 | SUR.OPER ---
pt s/p BRENDA
pt BRENDA completed without incident. pt vss, resting comfortably, but lethargic due to sedation. no c/o pain or discomfort. pt arouseable, awaiting post op time to transfer to IVU
--- NOTE | 2024-08-14 09:47 | W.PN.ID1 ---
Addendum entered and electronically signed by Lay Santos MD 08/14/24 14:43:
I saw and evaluated the patient. I reviewed the resident�s note and agree with findings and plan as documented in the resident�s note.
Strep mitis/oralis MV infective endocarditis with large 1.6cm pedunculated abscess, moderate MR.
Embolic risk.
CTS evaluating for valve surgery.
Repeat blood cultures negative to date.
Can place midline tomorrow.
DC Vanco.
Continue ceftriaxone 2g IVq24h x 4 weeks through 09/09/24.
Discussed with RISHI Paniagua
Original Note:
Today's Communication
D/C vancomycin
Continue ceftriaxone
Assessment / Plan
Assessment
# Mitral valve infective endocarditis
# strep mitis/oralis bacteremia x 3 sets
# Sepsis: fever, leukocytosis: resolving
# Sinus bradycardia
# FIT positive, never had colonoscopy
Conditions Present Prior to Admission
T2DM
Dyslipidemia
Essential HTN
Hx Gastric Bypass
Plan
- cultures positive for Strep mitis/oralis
- Continue ceftriaxone 2g IV q24
- d/c Vancomycin
- Follow repeat blood culture
- BRENDA today 08/14 Large (1.4 cm x 1.1 cm), heterogeneous pedunculated vegetation on the P3 scallop of the mitral valve.
Chief Complaint
-: Bacteremia
Subjective / Review of Systems
Patient seen and examined at bedside. Denies acute complaints. Denies chest pain, shortness of breath.
Review of Systems: No Fever and No Chills
Vital Signs / Physical Exam
Vital Signs
Vital Signs
Temp Pulse Resp BP Pulse Ox
98 F 47 20 115/74 96
08/14/24 07:26 08/14/24 07:30 08/14/24 07:26 08/14/24 07:30 08/14/24 07:26
Physical Exam
Constitutional: No Acute Distress
Cardiovascular: Regular Rate and S1/S2
Pulmonary: Clear
Gastrointestinal: Soft, Non Tender, Non Distended and Normal Bowel Sounds
Neurological: AO x 3
Psychological: Calm
Objective Data
Lab Data
Lab Results
08/13/24 04:14
08/14/24 04:53
ESR 69 mm/hour (0-20) H 08/11/24 15:44
Estimated Creat Clear 87 ml/min 08/14/24 04:53
Total Bilirubin 0.4 mg/dl (0.2-1.3) 08/13/24 04:14
AST 22 U/L (17-59) 08/13/24 04:14
ALT 18 U/L (0-50) 08/13/24 04:14
Alkaline Phosphatase 83 U/L (38-126) 08/13/24 04:14
Most recent labs reviewed.
Micro Results:
08/11/24 17:00 Blood Culture - Preliminary
Blood/Venous Positive culture in progress
Gram Stain - Final
08/11/24 16:56 Blood Culture - Preliminary
Blood/Venous Positive culture in progress
Gram Stain - Final
08/11/24 16:49 Blood Culture - Preliminary
Blood/Venous Gram Stain - Final
08/12/24 04:35 Blood Culture - Preliminary
Blood/Venous No Growth in 48 hours- Final report to follow
08/13/24 13:52 Blood Culture - Pending
Blood/Venous
08/13/24 13:25 Blood Culture - Pending
Blood/Venous
08/11/24 15:44 Influenza Types A & B (JUDIE) - Final
Nasal Swab Negative for Influenza A & B, NAAT
Negative results must be combined with clinical observations
and patient history.
Nucleic Acid Amplification test (NAAT)performed on the
[employer] platform.
CXR: No acute disease of the chest.
Transesophageal Echocardiogram; Normal biventricular size and systolic function without regional wall motion
abnormality.
Large (1.4 cm x 1.1 cm), heterogeneous pedunculated vegetation on the P3
scallop of the mitral valve.
Cannot exclude the possibility of perforation of the P3 scallop based on review
of 12.
Moderate mitral regurgitation, may be underestimated due to acoustic shadowing
of the large vegetation.
Aortic sclerosis without stenosis. Trace aortic regurgitation.
No prior study available for comparison.
[2024-08-14] MEDS: CRESTOR 5 MG PO (10:05)
[2024-08-14] MEDS: LOW STRENGTH ASPIRIN 81 MG PO (10:05)
[2024-08-14] MEDS: ROCEPHIN 2000 MG IV (10:08)
[2024-08-14] MEDS: FLUSH (NSS) 2 FLUSH IV (10:08)
[2024-08-14] MEDS: STERILE WATER FOR INJECTION 20 ML IV (10:08)
--- NOTE | 2024-08-14 10:28 | CM ---
Reviewed chart. Met with and Mrs. Saeed to review discharge plans. He states prior to admission he resides with his spouse in a one story home with one step to enter. He states prior to admission he was independent with ambulation and adls.
He states he does not have any DME in the home. He states he has a prescription plan with [employer] [facility] and uses [facility]. Telephone call to [facility] to make the referral. Sent referral to [facility] to check on insurance coverage for
home IV ABX. Will need PICC line if he will need wool sampler IV ABX. Medical work-up in progress. The discharge plan is to return home with his spouse and [facility] home Infusion for IV ABX if indicated when medically stable.
[2024-08-14 10:34] VITALS: BP 122/72
--- NOTE | 2024-08-14 12:50 | W.PN.UPDATE ---
Update Note
Progress Note Update
Patient's case was discussed with Dr. Chou and cardiology. He will be scheduled for a sternotomy MVrepair/replacement upon Dr. Chou's review.He will be NPO after midnight for a [facility] tomorrow. Continue pre-operative work up.
[2024-08-14 13:28] LABS: Glucose - Point of Care 119 mg/dl (70-99)
--- NOTE | 2024-08-14 15:50 | W.PN.HOSP.TC ---
Today's Communication/Plan
-
CT surgery evaluation
IV antibiotics
Assessment / Plan
Assessment / Plan
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 Mild mitral
regurgitation. Concern for perforation of the anterior leaflet.
Blood culture positive for strep mitis/oralis
Repeated blood cultures negative
BRENDA 08/14: Large 1.4 cm x 1.1 cm heterogeneous pedunculated vegetation on P3 scallop of mitral valve
CT surgery consulted. Patient scheduled for sternotomy with MVR repair/replacement tentatively on 08/15. Preoperative workup as per CT surgery
Blood cultures positive for gram-positive in chains. Currently on IV vancomycin, Ceftriaxone per ID.
Antibiotics narrowed to ceftriaxone
PICC line to be placed with blood culture clearance.
Sinus bradycardia noted, TSH normal.
ALICIA -likely due to volume depletion due to anorexia, due to suspected endocarditis. ALICIA improved.
Hyperkalemia -unclear etiology. ARB is on hold. Give 1 dose of Lokelma. Potassium improved
Troponin elevation -suspect acute nonischemic myocardial injury due to sepsis. No reports of chest pain. EKG with normal sinus rhythm, left axis deviation. Troponin trending down.
Normocytic anemia -most likely due to endocarditis. Heme positive stools by history concerning (positive FIT test). Has never had a colonoscopy. Was scheduled to see GI as an outpatient next week, will need to reschedule.
B12, folic acid normal. Iron panel consistent with a component of deficiency, ferritin in the normal range but unclear if endocarditis is causing it to be elevated as an acute phase reactant.
Severe protein/calorie malnutrition -31 pound weight loss in 2 months. Albumin 3.4. Nutrition consulted.
DM 2 with hyperglycemia -hold metformin, semaglutide. Glucose 158 this morning. Hemoglobin A1c 8.6%. Use low resistance insulin scale.
Essential hypertension -hypotension improving, continue to hold antihypertensives.
Hyperlipidemia -on rosuvastatin.
Obesity due to excess calories -history of gastric bypass.
Full code
Anticipated Discharge: > 48 hours
Subjective/Interval History
-
Date of Service: August 14, 2024
Objective Data
-
Labs:
Laboratory Results
08/14/24
04:53
Sodium 137
Potassium 5.0
Chloride 103
Carbon Dioxide 27
BUN 16
Creatinine 0.8
Glucose 156 H
Calcium 8.5
Vital Signs:
Vital Signs
Temp Pulse Resp BP Pulse Ox
97.8 F 55 20 122/72 98
08/14/24 10:34 08/14/24 12:00 08/14/24 10:34 08/14/24 10:34 08/14/24 10:34
I&O
08/13/24 08/14/24 08/15/24
06:59 06:59 06:59
Intake Total 1260 / 1260 960 / 960
Balance 1260 / 1260 960 / 960
Physical Exam
-
General: Well Developed and No Apparent Distress
HEENT: Normocephalic, Atraumatic and Moist Mucous Membranes
Respiratory: Clear to Auscultation
Cardiac: Regular Rhythm and S1/S2; Negative Murmur, Rub or Gallop
GI: Soft, Nontender, Nondistended and Normal Bowel Sounds; Negative Organomegaly
Rectal: Deferred by Provider
Musculoskeletal: No Clubbing, No Cyanosis and No Edema
Skin: Negative Rash
Neuro: Nonfocal/Grossly Intact
[2024-08-14 17:06] LABS: Glucose - Point of Care 147 mg/dl (70-99)
[2024-08-14] MEDS: LOVENOX 40 MG SC (19:22)
[2024-08-14 20:09] VITALS: BP 140/74
[2024-08-14 20:27] VITALS: BP 140/74
--- NOTE | 2024-08-14 20:44 | PTCARENOTE ---
Assumed care of the pt @ 1900. AAOOx3 SB on the monitor. Reminded pt of NPO status at midnight tonight. Pt stated that he isn't going for the procedure that he doesn't want it done.
[2024-08-14 22:14] VITALS: BP 129/93
[2024-08-14 22:15] LABS: Glucose - Point of Care 213 mg/dl (70-99)
[2024-08-15] VITALS (8 sets, daily range): BP systolic 115–152; BP diastolic 66–86; BMI 29.8
--- NOTE | 2024-08-15 01:56 | W.PN.CT ---
Today's Communication / Plan
-
Plan:
-No issues overnight
-Cont. current meds (Heparin gtt, ASA, Ceftriaxone, Crestor)
-For LHC today, pt initially refusing, and asking to go home today. and I were able to convince pt to stay for LHC (Pt wants to go home and come back after Holidays)
-For eventual MV Repair/Replacement by Dr. Chou (Dr. Chou to see pt today)
Assessment / Plan
-
Assessment:
69-year-old male presented to [facility] on 08/11 with complaints of fevers, chills, weight loss, weakness, ARMIJO, and cough over the past 2 months. He was at [facility] emergency room about 10 days ago with similar symptoms and
was discharged. He has had intermittent fevers and chills since May and has a 30 pound weight loss. Along with the weight loss patient admits to doing a fecal immunochemical test that was positive for blood and was due to see a
model maker plaster for a colonoscopy on Wednesday.
-Mitral valve endocarditis (+strep mitis/oralis from culture 08/11)
-Moderate MR (may be underestimated due to acoustic shadowing of the large vegetation- 1.4 cm x 1.1 cm), per BRENDA 08/14/24
-LVEF 65-70%
-HTN
-T2DM (hgb A1C 8.6)
-Class 1 obesity (BMI 30)
-Bradycardia
-HLD
-S/P Gastric bypass
Discussed patient care with: Cardiology, Nursing, Respiratory Therapy, Pharmacy and Care Team
Subjective
-
Date of Service: August 15, 2024
No issues overnight, denies CP/SOB
Objective Data
Vital Signs
Vital Signs
Temp Pulse Resp BP Pulse Ox
97.8 F 42 20 129/93 98
08/14/24 23:12 08/15/24 01:30 08/14/24 23:12 08/14/24 22:14 08/14/24 23:12
CT Intake/Output/Weight
08/14/24 08/14/24 08/15/24
06:59 18:59 06:59
Intake Total 960 / 960
Balance 960 / 960
SaO2: 98 (RA)
Physical Exam
-
General: Awake, Oriented and AOx3
Cardiovascular: Other (sinus bradycardia 30/40's)
Extremities: No Edema
Data Reviewed
-
Lab Results: Results Reviewed
Medications: Active Meds Reviewed
Chest X-Ray: Report Reviewed and Image Reviewed
ECG: Report Reviewed and Image Reviewed
[2024-08-15 04:33] LABS: INR 1.11; PT 14.6 Sec (11.4-14.6)
[2024-08-15 04:34] LABS: APTT 32.6 Sec (23.4-35.0)
[2024-08-15 04:38] LABS: Hematocrit 33.8 % (39.0-52.0); Hemoglobin 10.9 g/dL (13.0-18.0); Mean Corp Hgb Conc. 32.2 g/dL (33.0-37.0); Mean Corpuscular Volume 86.9 fL (80.0-94.0); Mean Platelet Volume 10.6 fL (7.4-10.4); Platelet Count 364 10^3/uL (130-400); Red Blood Cell Count 3.89 10^6/uL (4.70-6.10); Red Cell Dist. Width 12.8 % (11.5-14.5); White Blood Cell Count 10.5 10^3/uL (4.8-10.8)
[2024-08-15 04:56] LABS: ALT (SGPT) 26 U/L (0-50); AST (SGOT) 31 U/L (17-59); Albumin 3.2 g/dl (3.5-5.0); Alkaline Phosphatase 95 U/L (38-126); Blood Urea Nitrogen 16 mg/dl (9-20); Calcium 8.9 mg/dl (8.4-10.2); Carbon Dioxide 28 mmol/L (22-30); Chloride 102 mmol/L (98-107); Direct Bilirubin 0.1 mg/dl (0.0-0.4); Estimated Creatinine Clearance 87 ml/min; Glucose 157 mg/dl (70-99); Sodium 140 mmol/L (135-145); Total Bilirubin 0.3 mg/dl (0.2-1.3); Total Protein 6.5 g/dl (6.3-8.2); eGFR > 60.00
[2024-08-15 07:09] LABS: Glucose - Point of Care 149 mg/dl (70-99)
--- NOTE | 2024-08-15 08:05 | W.PN.UPDATE ---
Addendum entered and electronically signed by Jimmy Chou MD 08/15/24 12:11:
I saw and examined the patient.
The LICENSED STAFF MFT's note was reviewed and I agree with the note.
Comment:
We discussed his pathology. On my review of his BRENDA, there is likely moderate MR, eccentric. There is a large vegetation that is mobile. He feels significantly improved after IV abx at this time. We discussed the various guidelines for intervention,
and although he does not have severe MR, some guidelines would recommend early intervention as stroke prevention given the large size and mobility of his vegetation. I offered him surgery next week after a 7 day period of abx for bacterial
clearance. He ultimately wanted to be around for the holidays and shared decision making was to move forward with surgery on 08/31 for sternotomy, MVrR, KAREN Clip. Consent was obtained and all questions were answered. Plan is for PICC line and LHC
today with likely discharge later. He stated multiple times that the understood the risk of stroke.
Original Note:
Update Note
Progress Note Update
Patient was seen with Dr. Chou this morning. There was a extensive conversation about his surgery date. Patient was very adamant on going home and coming back for surgery. We discussed with him about his risk for a large stroke given his mobile
mass on his mitral valve. He expressed understanding but he really wanted to be home for the holidays. We compromised on a surgery date of August 31, [address] Chou. He will be a mitral valve repair/replacement, +/- CABG depending on left
heart cath today, and a left atrial appendage clip. Consent was obtained. Ongoing preoperative workup, case management was informed.
[2024-08-15] MEDS: CRESTOR 5 MG PO (08:38)
[2024-08-15] MEDS: LOW STRENGTH ASPIRIN 81 MG PO (08:38)
[2024-08-15] MEDS: NOVOLOG FLEXPEN-LOW RESISTANCE SC (08:38)
--- NOTE | 2024-08-15 09:18 | CM ---
Addendum entered by Lelo Clarke 08/15/24 15:23:
Faxed Mid-line information to [facility].
Addendum entered by Lelo Clarke 08/15/24 14:13:
Spoke with [facility] Liaison to review home ABX. [facility] will try to deliver the medication this evening. If not [facility] will deliver the medication tomorrow a.m. [facility] met with patient and spoke with his spouse via phone.
Awaiting Mid-line placement. Will need to fax mid-line information to [facility]. Medical work-up in progress. The discharge plan is to return home with his spouse and [facility] when medically stable.
Original Note:
Reviewed chart. Met with and Mrs. Saeed to review discharge plans. Prior to admission he resides with his spouse in a one story home with one step to enter. Prior to admission he was independent with ambulation and adls. He does not have any
DME in the home. [facility]. Telephone call to [facility] Liaison to check on co-pay for Ceftriaxone. He has a $35.00 co-pay pre nurse visit. His spouse is a nurse. Mrs. Saeed states
she will be home to assist in his care if needed after his surgery. Medical work-up in progress. The discharge plan is to return home with his spouse and a home visit by the Transitional Care Nurse when medically stable.
We reviewed pre-op and post-op routines. We reviewed the shower instructions. He has the written instructions, soap and the Cardiothoracic Surgery Educational Booklet. We also reviewed restrictions including sternal precautions and driving
restrictions. We discussed a home visit by the Transitional Care Nurse. He is agreeable to a home visit. The plan is to for Mitral Valve Repair/Replacement on August.
[2024-08-15] MEDS: ROCEPHIN 2000 MG IV (09:31)
[2024-08-15] MEDS: STERILE WATER FOR INJECTION 20 ML IV (09:32)
--- NOTE | 2024-08-15 09:32 | W.PN.ID1 ---
Date of Service
Date of Service: August 15, 2024
Today's Communication
DC home when home infusion set up.
See below.
Assessment / Plan
Assessment
# Mitral valve infective endocarditis with Strep mitis/oralis
# strep mitis/oralis bacteremia x 3 sets
# Poor dentition - source of bacteremia/IE
# Sepsis: fever, leukocytosis: resolved
# FIT positive, never had colonoscopy - has appt with GI
Plan
- BRENDA: 1.6 cm pedunculated vege on MV with moderate MR
- pt adamant about leaving today and have cardiac surgery done after , scheduled for 08/31.
- high risk for embolic complications. Discussed signs and symptom to look for.
- XRAY multiple demtal caries and lucencies.
In the interim, he needs urgent OMS dental evaluation of poor dentition prior to cardiac surgery.
- Place midline today.
- Continue ceftriaxone 2g IVq24h x 4 weeks through 09/09/24.
Follow weekly CBC, CMP while on ceftriaxone.
-Infusion sheet submitted to case resolution specialist yesterday.
- To return for cardiac surgery on 08/31. PLEASE send tissue for culture -> if positive, need to extend abx course.
Conditions Present Prior to Admission
T2DM
Dyslipidemia
Essential HTN
Hx Gastric Bypass
Chief Complaint
-: Bacteremia
Subjective / Review of Systems
Wants to go home today after cardiac cath.
No new symptoms.
Vital Signs / Physical Exam
Vital Signs
Vital Signs
Temp Pulse Resp BP Pulse Ox
98.1 F 44 18 125/79 98
08/15/24 07:11 08/15/24 08:30 08/15/24 07:11 08/15/24 07:13 08/15/24 07:18
Physical Exam
Constitutional: No Acute Distress and Comfortable
Cardiovascular: Regular Rate and S1/S2
Pulmonary: Clear
Gastrointestinal: Soft, Non Tender and Non Distended
Extremities: Negative Edema
Neurological: AO x 3
Objective Data
Lab Data
Lab Results
08/15/24 04:17
08/15/24 04:17
ESR 69 mm/hour (0-20) H 08/11/24 15:44
PT 14.6 Sec (11.4-14.6) 08/15/24 04:17
INR 1.11 08/15/24 04:17
APTT 32.6 Sec (23.4-35.0) 08/15/24 04:17
Estimated Creat Clear 87 ml/min 08/15/24 04:17
Total Bilirubin 0.3 mg/dl (0.2-1.3) 08/15/24 04:17
AST 31 U/L (17-59) 08/15/24 04:17
ALT 26 U/L (0-50) 08/15/24 04:17
Alkaline Phosphatase 95 U/L (38-126) 08/15/24 04:17
Most recent labs reviewed.
Micro Results:
08/12/24 04:35 Blood Culture - Preliminary
Blood/Venous No Growth in 72 hours- Final report to follow
08/13/24 13:52 Blood Culture - Preliminary
Blood/Venous No Growth in 24 hours- Final report to follow
08/13/24 13:25 Blood Culture - Preliminary
Blood/Venous No Growth in 24 hours- Final report to follow
08/11/24 17:00 Blood Culture - Final
Blood/Venous Strep mitis/oralis
Gram Stain - Final
08/11/24 16:56 Blood Culture - Final
Blood/Venous Strep mitis/oralis
Gram Stain - Final
08/11/24 16:49 Blood Culture - Final
Blood/Venous Strep mitis/oralis
Gram Stain - Final
08/11/24 15:44 Influenza Types A & B (JUDIE) - Final
Nasal Swab Negative for Influenza A & B, NAAT
Negative results must be combined with clinical observations
and patient history.
Nucleic Acid Amplification test (NAAT)performed on the
[employer] platform.
CXR: No acute disease of the chest.
Transesophageal Echocardiogram; Normal biventricular size and systolic function without regional wall motion
abnormality.
Large (1.4 cm x 1.1 cm), heterogeneous pedunculated vegetation on the P3
scallop of the mitral valve.
Cannot exclude the possibility of perforation of the P3 scallop based on review
of 12.
Moderate mitral regurgitation, may be underestimated due to acoustic shadowing
of the large vegetation.
Aortic sclerosis without stenosis. Trace aortic regurgitation.
No prior study available for comparison.
Orthopantogram: Large number of dental caries. Suspected mild periapical lucencies involving residual roots of the right and left mandibular premolars.
Care Review
Plan reviewed with: Physician (Dr. Lopez) and Other Provider (RISHI Mccarthy)
--- NOTE | 2024-08-15 10:15 | PTCARENOTE ---
Patient sent to the soap slabber, report given
--- NOTE | 2024-08-15 11:51 | ITS.CL.CATH ---
Heel Edge Inker Machine - Catheterization
Cardiac Catheterization
Procedure Report:
CARDIAC CATHETERIZATION REPORT
Date of Procedure: 08/15/2024
Referring: Dean Garcia MD
�
HEMODYNAMIC DATA
AO: 112/64
LV: 112/10
�
LEFT VENTRICULOGRAPHY: Not performed
�
CORONARY ANGIOGRAPHY
Dominance: Right
Left Main: Normal
LAD: Trivial luminal irregularities
Circumflex: Trivial luminal irregularities
RCA: Dominant vessel with mild luminal irregularities
�
Closure Device: 6 Croatian Angio-Seal RFA. Of note the left coronary angiography was performed via the right radial artery approach. We required 125 cm length catheters due to significant tortuosity of the innominate artery. Right coronary artery
cannulation was not possible due to the angulation of the innominate artery with some subsequent innominate artery spasm. We converted to a femoral approach for right coronary angiography to complete study
�
Radiation (mGy): 557
DAP (cm2.Gy): 44.8
Fluoroscopy time: 8.6 minutes
�
CONCLUSIONS
1:�No significant CAD
2:�Left ventriculography not performed due to recent history of endocarditis.
�
�
Copy to: Jesus Mullins MD, Dean Garcia MD
�
Waqas Blanco MD, [facility], [facility]
[2024-08-15 12:45] LABS: Glucose - Point of Care 191 mg/dl (70-99)
[2024-08-15] MEDS: NOVOLOG FLEXPEN-LOW RESISTANCE 1 UNITS SC (12:45)
--- NOTE | 2024-08-15 14:31 | W.DS.TRANS ---
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
-
Discharge Instructions:
Discharge Diagnosis/Procedures Mitral valve endocarditis
Diet Regular
Instructions:
Stand-Alone Forms:
Changes to Home Medications: Yes
Discharge Medications:
DC Medications w/original date entered in [email or web address]
aspirin 81 mg chewable tablet 81 mg PO DAILY Blood Clot Prevention/Tx 08/11/24
benzonatate 100 mg capsule 100 mg PO TIDPRN PRN cough 08/11/24
ipratropium bromide 21 mcg (0.03 %) nasal spray 2 spray intranasal BIDPRN PRN congestion 08/11/24
metformin 500 mg tablet,extended release 24hr (osmotic) 1,000 mg PO DAILY Diabetes 08/11/24
metformin 500 mg tablet,extended release 24hr (osmotic) 500 mg PO QPM Diabetes 08/11/24
olmesartan 40 mg-amlodipine 5 mg-hydrochlorothiazide 12.5 mg tablet 1 tab PO DAILY Blood Pressure 08/11/24
ondansetron HCl 8 mg tablet 8 mg PO Q8HPRN PRN nausea 08/11/24
rosuvastatin 5 mg tablet 5 mg PO DAILY High Cholesterol 08/11/24
semaglutide 14 mg tablet (Rybelsus) 14 mg PO DAILY Diabetes 08/11/24
therapeutic multivitamin 1 tab PO DAILY Supplement 08/11/24
ceftriaxone 2 gram solution for injection 2,000 mg IV Q24H #28 ea 08/15/24
Home Medication Changes
Antibiotics through 09/09/2024
Pending Results: No
--- NOTE | 2024-08-15 17:05 | PTCARENOTE ---
Patient discharged to home. Metformin to restart on . IV and telemetry removed. IV antibiotics will arrive tomorrow. Right midline in place for home ABT treatment. Anesthesia consult completed for surgery Sep [address] Chou
== END 2024-08-15 17:16 | disposition home health service (06) | DRG 871 ==
LOC: IVU 18:32
PROVIDERS: Clinical Nurse Specialist Acute Care; Emergency Medicine; Internal Medicine Cardiovascular Disease; ADMITTING PHYSICIAN Hospitalist; ATTENDING PHYSICIAN Internal Medicine; CONSULT PHYSICIAN Internal Medicine Infectious Disease; CONSULT PHYSICIAN Thoracic Surgery (Cardiothoracic Vascular Surgery); EMERGENCY PHYSICIAN Emergency Medicine; FAMILY PHYSICIAN Family Medicine
PROC: B24BZZ4 Ultrasonography of Heart with Aorta, Transesophageal (ICD-10-PCS; 2024-08-14)
PROC: 4A023N7 Measurement of Cardiac Sampling and Pressure, Left Heart, Percutaneous Approach (ICD-10-PCS; 2024-08-15)
PROC: B2111ZZ Fluoroscopy of Multiple Coronary Arteries using Low Osmolar Contrast (ICD-10-PCS; 2024-08-15)
DX: A40.8 Other streptococcal sepsis (principal); E43 Unspecified severe protein-calorie malnutrition; I33.0 Acute and subacute infective endocarditis; N17.9 Acute kidney failure, unspecified; Z11.52 Encounter for screening for COVID-19; E86.9 Volume depletion, unspecified; Z68.29 Body mass index [BMI] 29.0-29.9, adult; E87.5 Hyperkalemia; D64.9 Anemia, unspecified; E11.65 Type 2 diabetes mellitus with hyperglycemia; I10 Essential (primary) hypertension; E78.00 Pure hypercholesterolemia, unspecified; E66.09 Other obesity due to excess calories; Z98.84 Bariatric surgery status; Z80.0 Family history of malignant neoplasm of digestive organs; Z82.49 Family history of ischemic heart disease and other diseases of the circulatory system; Z79.82 Long term (current) use of aspirin; Z79.84 Long term (current) use of oral hypoglycemic drugs; I95.9 Hypotension, unspecified; R00.1 Bradycardia, unspecified; I34.0 Nonrheumatic mitral (valve) insufficiency; I70.0 Atherosclerosis of aorta; E61.1 Iron deficiency; R79.89 Other specified abnormal findings of blood chemistry
CPT/HCPCS: 70355; 71046; 71250; 80048; 80053; 82248; 82607; 82728; 82746; 82962; 83036; 83540; 83550; 83880; 84443; 84484; 85025; 85027; 85045; 85610; 85652; 85730; 87040; 87077; 87186; 87205; 87502; 87811; 93005; 93306; 93312; 93320; 93325; 93458; 93880; 96361; 96374; 96375; 99285; C1760; C1894; Q9967

== ENCOUNTER 2024-09-01 04:51 | Inpatient (IN) | payer BC, MEDICARE, SELFPAY ==
--- NOTE | 2024-08-15 10:12 | CM ---
[facility] AG[facility]IRRE [facility] : 1955 [id number]
08/15/24 09:18 - Case Management Note by Lelo Clarke
Acct Num: [id number] : 1955 Patient Age: 69
Reviewed chart. Met with and Mrs. Aguirre to review discharge plans. Prior to admission he resides with his spouse in a one story home with one step to enter. Prior to admission he was independent with ambulation and adls. He does not have any
DME in the home. He has a prescription plan with [facility]. Telephone call to [facility] Care Liaison to check on co-pay for Ceftriaxone. He has a $35.00 co-pay pre nurse visit. His spouse is a nurse. Mrs. Aguirre states
she will be home to assist in his care if needed after his surgery. Medical work-up in progress. The discharge plan is to return home with his spouse and a home visit by the Transitional Care Nurse when medically stable.
We reviewed pre-op and post-op routines. We reviewed the shower instructions. He has the written instructions, soap and the Cardiothoracic Surgery Educational Booklet. We also reviewed restrictions including sternal precautions and driving
restrictions. We discussed a home visit by the Transitional Care Nurse. He is agreeable to a home visit. The plan is to for Mitral Valve Repair/Replacement on , August 31, 2024.
Initialized on 08/15/24 09:18 - END OF NOTE
[2024-09-01] VITALS (24 sets, daily range): BP systolic 92–187; BP diastolic 63–152; BMI 32.1
--- NOTE | 2024-09-01 05:41 | W.PN.UPDATE ---
Update Note
Progress Note Update
-preop BB is contraindicated d/t bradycardia (hr 48)
[2024-09-01] MEDS: BACTROBAN 2% OINTMENT 1 APPLIC NASAL ×2 (05:52→20:47)
[2024-09-01] MEDS: MAGNESIUM OXIDE 500 MG PO (05:52)
[2024-09-01] MEDS: PROTONIX 40 MG PO (05:52)
--- NOTE | 2024-09-01 06:00 | PTCARENOTE ---
pt admitted into CVICU room 2264. pt confirmed 2 CHG showers at home. pt clipped and prepped for CVOR, wiped w/ CHG wipes. pre-op meds provided, lopressor held per [facility]. pre-op education provided. all questions answered. electrical transmission engineer to CVOR.
--- NOTE | 2024-09-01 06:11 | W.CVOR.SURPR ---
CVOR Surgeon Immed Pre Op
-
I have examined this patient prior to performance of the scheduled procedure.
The patient's condition is unchanged from the time of the dictated/written History and
Physical and the patient is able to undergo the scheduled procedure.
MV Repair +/- Replacement / Vegetation resection / KAREN Clip
[2024-09-01 07:00] LABS: ACT+ - POC 115 Seconds (82-134)
[2024-09-01 07:23] LABS: Urine Albumin Trace (Neg - Trace); Urine Bilirubin Negative (Negative); Urine Character Clear (Clear); Urine Color Yellow; Urine Glucose Negative (Negative); Urine Ketone Negative (Negative); Urine Leukocyte Negative (Negative); Urine Nitrite Negative (Negative); Urine Occult Blood 3+ (Negative); Urine Urobilinogen Negative (Neg - 1+); Urine pH 6.5 (5.0-9.0)
[2024-09-01] MEDS: ANCEF 10 IV ×2 (07:30→09:51)
[2024-09-01 08:02] LABS: ACT+ - POC 496 Seconds (82-134)
[2024-09-01 08:18] LABS: B.E. - POC 2.1 mmol/L; Glucose - POC 137 mg/dl (70-99); HCO3 - POC 28 mmol/L (21-28); Hematocrit - POC 33 % PCV (42-52); Hemodilution- POC Yes; Hemoglobin Calculated - POC 11.1; Ionized Calcium - POC 1.27 mmol/L (1.15-1.33); O2 Saturation %Calculated-POC 99.9 % (94-98); PCO2 - POC 49 mmHg (35-48); PO2 - POC 375 mmHg (83-108); POC Comment PRE; Potassium - POC 4.3 mmol/L (3.5-5.1); Sodium - POC 142 mmol/L (136-145); Specimen Type - POC Arterial; pH - POC 7.37 (7.35-7.45)
--- NOTE | 2024-09-01 08:25 | CM ---
Reviewed chart. Mr. Saeed is in the operating room today. Prior to admission he resides with his spouse in a one story home with one step to enter. Prior to admission he was independent with ambulation and adls. He does not have any DME in the
home. He has a prescription plan and uses [facility]. His spouse is a nurse and she will be home to assist in his care if needed. Medical work-up in progress. The discharge plan is to return home with his spouse and a home visit by the
Transitional Care Nurse when medically stable.
[2024-09-01 08:26] LABS: ACT+ - POC 478 Seconds (82-134)
[2024-09-01 08:43] LABS: B.E. - POC 4.6 mmol/L; Glucose - POC 142 mg/dl (70-99); HCO3 - POC 29 mmol/L (21-28); Hematocrit - POC 23 % PCV (42-52); Hemodilution- POC Yes; Hemoglobin Calculated - POC 7.7; Ionized Calcium - POC 1.11 mmol/L (1.15-1.33); O2 Saturation %Calculated-POC 98.8 % (94-98); PCO2 - POC 40 mmHg (35-48); PO2 - POC 116 mmHg (83-108); POC Comment CPB; Potassium - POC 4.4 mmol/L (3.5-5.1); Sodium - POC 141 mmol/L (136-145); Specimen Type - POC Arterial; pH - POC 7.47 (7.35-7.45)
[2024-09-01 08:51] LABS: ACT+ - POC 421 Seconds (82-134)
[2024-09-01 09:06] LABS: ACT+ - POC 541 Seconds (82-134)
[2024-09-01 09:11] LABS: B.E. - POC 4.1 mmol/L; Glucose - POC 169 mg/dl (70-99); HCO3 - POC 28 mmol/L (21-28); Hematocrit - POC 25 % PCV (42-52); Hemodilution- POC Yes; Hemoglobin Calculated - POC 8.3; Ionized Calcium - POC 1.14 mmol/L (1.15-1.33); O2 Saturation %Calculated-POC 99.8 % (94-98); PCO2 - POC 39 mmHg (35-48); PO2 - POC 216 mmHg (83-108); POC Comment CPB; Potassium - POC 4.1 mmol/L (3.5-5.1); Sodium - POC 141 mmol/L (136-145); Specimen Type - POC Arterial; pH - POC 7.47 (7.35-7.45)
[2024-09-01 09:22] LABS: ACT+ - POC 552 Seconds (82-134)
[2024-09-01 09:29] LABS: B.E. - POC 2.1 mmol/L; Glucose - POC 151 mg/dl (70-99); HCO3 - POC 27 mmol/L (21-28); Hematocrit - POC 26 % PCV (42-52); Hemodilution- POC Yes; Hemoglobin Calculated - POC 8.7; Ionized Calcium - POC 1.17 mmol/L (1.15-1.33); O2 Saturation %Calculated-POC 98.4 % (94-98); PCO2 - POC 43 mmHg (35-48); PO2 - POC 112 mmHg (83-108); POC Comment CPB; Potassium - POC 3.7 mmol/L (3.5-5.1); Sodium - POC 141 mmol/L (136-145); Specimen Type - POC Arterial; pH - POC 7.41 (7.35-7.45)
[2024-09-01 09:39] LABS: ACT+ - POC 546 Seconds (82-134)
[2024-09-01 09:50] LABS: B.E. - POC 1.1 mmol/L; Glucose - POC 136 mg/dl (70-99); HCO3 - POC 26 mmol/L (21-28); Hematocrit - POC 27 % PCV (42-52); Hemodilution- POC Yes; Ionized Calcium - POC 1.16 mmol/L (1.15-1.33); O2 Saturation %Calculated-POC 99.9 % (94-98); PCO2 - POC 41 mmHg (35-48); PO2 - POC 299 mmHg (83-108); POC Comment WARM; Potassium - POC 3.9 mmol/L (3.5-5.1); Sodium - POC 142 mmol/L (136-145); Specimen Type - POC Arterial; pH - POC 7.41 (7.35-7.45)
[2024-09-01 10:03] LABS: ACT+ - POC 115 Seconds (82-134)
[2024-09-01 10:10] LABS: Glucose - POC 116 mg/dl (70-99); HCO3 - POC 24 mmol/L (21-28); Hematocrit - POC 26 % PCV (42-52); Hemodilution- POC Yes; Hemoglobin Calculated - POC 8.9; Lactate - POC 2.67 mmol/L (0.36-0.75); O2 Saturation %Calculated-POC 99.6 % (94-98); PCO2 - POC 38 mmHg (35-48); PO2 - POC 175 mmHg (83-108); POC Comment POST PROTAMINE; Sodium - POC 141 mmol/L (136-145); Specimen Type - POC Arterial
[2024-09-01 10:24] LABS: Urine Amorphous Seen; Urine Urothelial Cell 16-20 /LPF (FEW)
[2024-09-01 10:26] LABS: Urine Red Blood Cell 30-40 /HPF (0-2); Urine White Cell 0-2 /HPF (0-5)
--- NOTE | 2024-09-01 10:34 | PN.DE.MGMTRT ---
Insulin Management
- -
08/30/2024: Diabetes Management Consult
69 year male previously admitted with 3-month hx of fever and chills and 31 pound weight loss. 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
Patient electively admitted 09/01/2024 for MVR and left atrial appendage clip. Patient currently unable to interview, he is in the OR for Aortic valve resection of vegetations, possible Lambl bodies and aortic valve repair and radical mitral valve
repair. PMH: HTN, HLD, Obesity s/p gastric bypass (Srinivas-en-Y 15 yrs ago) and T2DM, was taking Metformin 1000mg daily in AM and 500mg in PM and Rybelsus 14mg daily. A1C 8.6% on 08/12/24, Cr 0.8, eGFR >60.
Pt will be managed on the Glycemic protocol x48 hrs post-op for optimal glucose management.
Will follow up on Wednesday and assist to transition off drip to SQ insulin.
Anticipate insulin regimen at discharge given uncontrolled diabetes with an A1C of 8.4%
Diabetes History
- -
Type of Diabetes: 2 requiring insulin
Pre-Admission Diabetes Regimen
Insulin Pump Settings
IP Diabetes Regimen
Patient Education
--- NOTE | 2024-09-01 10:35 | CON.INTV ---
Consultation
Consultation Request
Date/Time Consultation Requested: 09/01/2024 - 1016
Date/Time Consultation Performed: 09/01/2024 - 1031
Requesting Provider: RISHI Brown
Performing Provider: Nico Drew MD
Reason for Consultation: AV repair + radical MV repair
Medical History
-
Chief Complaint: Elective mitral valve repair + aortic valve repair
History of Present Illness:
69-year-old male with a past medical history of hypertension, DM type II, chronic cough and history of infective endocarditis who presents for elective aortic valve repair + mitral valve repair. Patient was recently hospitalized from 08/11 -
08/15/2024 and was diagnosed with infective endocarditis with Streptococcus mitis + oralis bacteremia with ALICIA with volume depletion. TTE on 08/11/2024 showed a hyperechoic mass attached to the anterior mitral leaflet. Subsequent BRENDA showed a
large 1.4 cm x 1.1 cm heterogeneous pedunculated vegetation on the P3 scallop of the mitral valve, with moderate MR, and preserved LVEF at 65 to 75%. Left heart catheterization on 08/15/2024 showed no significant CAD. He was discharged home in
stable condition and now presents for cardiothoracic intervention. Today he underwent standard sternotomy and there was vegetations on the aortic valve which were resected and the aortic valve was repaired, and he also underwent a radical mitral
valve repair with left atrial appendage exclusion. There were no complications and he was transferred to the CVICU postoperatively and screen maker services consulted for additional management/recommendations.
When I saw the patient he was in bed on SIMV at 500/14/80%/5, with PIP 15 cmH2O, VTe 505 mL and breathing at 14 breaths/min. Heart rate 64, BP via right radial A-line 115/58, PAP: 44/22, CO/CI: 7.5/3.43, respectively, and saturating 99%. He is
currently on dobutamine at 1 mcg/kg/min, Precedex at 0.5 mcg/kg/hr and insulin drip at 3 units/hr. patient's , Eliana, at bedside and all questions were answered. He has mediastinal chest tubes x 2.
PMHx: Hypertension, history of infective endocarditis, DM type II, obesity, history of Srinivas-en-Y gastric bypass, chronic cough
PSHx: Non-contributory
Past Medical History
Past Medical History: Other (Above as per HPI)
Past Surgical History: Other (Above as per HPI)
Social History
Tobacco: Non-smoker
Alcohol: Occasional (Wine)
Drug: None
Personal:
Living: With Family (: Eliana)
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
Family History
Family History: CAD (Father) and Cancer (Mother: Colon cancer)
Allergies / Home Medications
Allergies
Allergy/AdvReac Type Severity Reaction Status Date / Time
No Known Allergies Allergy Verified 08/11/24 15:38
Home Medications
�Medication �Instructions �Recorded �Confirmed �Last Taken �Type
aspirin 81 mg chewable tablet 81 mg PO DAILY Blood Clot 08/11/24 09/01/24 08/11/24 History
Prevention/Tx
benzonatate 100 mg capsule 100 mg PO TIDPRN PRN cough 08/11/24 09/01/24 09/17/23 History
ipratropium bromide 21 mcg (0.03 2 spray intranasal BIDPRN PRN 08/11/24 09/01/24 09/17/23 History
%) nasal spray congestion
metformin 500 mg tablet,extended 1,000 mg PO DAILY Diabetes 08/11/24 09/01/24 08/11/24 History
release 24hr (osmotic)
metformin 500 mg tablet,extended 500 mg PO QPM Diabetes 08/11/24 09/01/24 08/10/24 History
release 24hr (osmotic)
olmesartan 40 mg-amlodipine 5 1 tab PO DAILY Blood Pressure 08/11/24 09/01/24 08/30/24 20:00 History
mg-hydrochlorothiazide 12.5 mg
tablet
ondansetron HCl 8 mg tablet 8 mg PO Q8HPRN PRN nausea 08/11/24 09/01/24 08/11/24 History
rosuvastatin 5 mg tablet 5 mg PO DAILY High Cholesterol 08/11/24 09/01/24 08/30/24 20:00 History
semaglutide 14 mg tablet (Rybelsus) 14 mg PO DAILY Diabetes 08/11/24 09/01/24 08/11/24 History
therapeutic multivitamin 1 tab PO DAILY Supplement 08/11/24 09/01/24 08/11/24 History
ceftriaxone 2 gram solution for 2,000 mg IV Q24H #28 ea 08/15/24 09/01/24 08/31/24 16:00 Rx
injection
dextromethorphan-guaifenesin 30 1 tab PO Q12H PRN cough 09/01/24 09/01/24 08/30/24 20:00 History
mg-600 mg tablet extended
sdtnati94 hr (Mucinex DM)
Review of Systems
-
Unable to Obtain full review of systems at this time due to: Patient Intubation
Vitals / Labs / Diagnostic Testing
Vital Signs
Temp Pulse Resp BP Pulse Ox
97.6 F 80 16 107/79 94
09/01/24 21:44 09/01/24 21:44 09/01/24 21:44 09/01/24 21:00 09/01/24 21:30
Lab Data
09/01/24 15:08
09/01/24 10:57
Laboratory Results
09/01/24 09/01/24 09/01/24
10:57 11:50 15:08
PT 18.3 H
INR 1.49
APTT 32.1
pH 7.33 L 7.35 7.37
pCO2 19 L 48 47
pO2 112 H 108 119 H
HCO3 10.0 L* 26.5 27.2
O2 Delivery Level Vent Simv fio2 80% 40
Microbiology
09/01/24 08:20 Valve Gram Stain - Preliminary
09/01/24 08:20 Valve Gram Stain - Preliminary
09/01/24 08:20 Valve Fungal Culture - Preliminary
09/01/24 08:20 Valve Fungal Culture - Preliminary
Diagnostic Testing:
Physical Exam
-
HEENT: Normocephalic and Anicteric
Cardiovascular: S1/S2 and Peripheral Edema (negative)
Respiratory: Wheeze (negative), Rales (negative), Rhonchi (negative), Non-Labored Respirations, Other (Mechanical breath sounds heard bilaterally) and Other (Mediastinal chest tubes x 2)
GI: Soft, Non Distended, Non Tender and Normal Bowel Sounds
Neurology: Tremors (negative) and Other (Sedated)
Skin: Warm and Dry
General: Respiratory Distress (negative), Comfortable, Fever (negative) and Chills (negative)
Assessment
-
Assessment: 69-year-old male with a past medical history of hypertension, DM type II, chronic cough and history of infective endocarditis who presents for elective aortic valve repair + mitral valve repair. Patient was recently hospitalized from
08/11 - 08/15/2024 and was diagnosed with infective endocarditis with Streptococcus mitis + oralis bacteremia with ALICIA with volume depletion. TTE on 08/11/2024 showed a hyperechoic mass attached to the anterior mitral leaflet. Subsequent BRENDA
showed a large 1.4 cm x 1.1 cm heterogeneous pedunculated vegetation on the P3 scallop of the mitral valve, with moderate MR, and preserved LVEF at 65 to 75%. Left heart catheterization on 08/15/2024 showed no significant CAD. He was discharged
home in stable condition and now presents for cardiothoracic intervention. On 09/01/2024, he underwent standard sternotomy and there was vegetations on the aortic valve which were resected and the aortic valve was repaired, and he also underwent a
radical mitral valve repair with left atrial appendage exclusion. There were no complications and he was transferred to the CVICU postoperatively and screen maker services consulted for additional management/recommendations.
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
Impression:
#History of Streptococcus mitis/oralis bacteremia with endocarditis of the mitral valve with insufficiency and large mobile vegetation s/p radical mitral valve repair (POD #0)
#Aortic valve vegetations s/p resection with repair (POD #0)
#Left atrial appendage exclusion with 40 mm clip (POD #0)
#Acute on chronic anemia
#DM type II c/b hyperglycemia (HbA1c: 8.6 on 08/12/2024)
#History of Srinivas-en-Y gastric bypass
#Hypertension
Plan:
Ventilator settings reviewed
FiO2 will be weaned to maintain SpO2 >90-94%
Minute ventilation will be adjusted
Arterial blood gases will be monitored
Spontaneous breathing trial will be attempted with hopeful extubation after anesthesia/sedation wear off
prn nebulized bronchodilators
Follow-up tissue cultures from the OR
Pulmonary artery catheter parameters will be followed
Pressors/antihypertensive/inotropes/diuretics will be provided as needed
Maintain MAP>65
Replete electrolytes with K>4, Mg>2
Monitor chest tube output (mediastinal x2)
Monitor hemoglobin
Monitor platelet count and coags
Transfuse blood products as needed to maintain Hb>7g/dL, plt>50k (given post-operative status)
CT surgery managing chest tubes
Monitor blood sugar to maintain euglycemia with goal BG 140-180
Insulin drip per protocol
Aspiration precautions
VAP prevention protocol
DVT prophylaxis
Early nutrition
Early mobilization
Critical care statement: A total of 46 minutes of critical care time was provided for this patient today. This includes management of ventilator, spontaneous breathing trial, arterial blood gases, pressors, of unstable vital signs, evaluation of the
patient at bedside, reviewing the patient's pertinent medical records including radiographs, microbiology, laboratory evaluations, and discussion with primary team and critical care nursing.
--- NOTE | 2024-09-01 11:04 | W.PN.CT.SURG ---
CT Surgery Operative Note
-
CARDIAC SURGERY OPERATIVE REPORT
Preoperative Diagnosis: History of bacteremia and endocarditis of the mitral valve with insufficiency and large mobile vegetation
Postoperative Diagnosis: Same, aortic valve vegetations
Procedure(s) Performed:
1. Standard sternotomy with aortic and bicaval cannulation
2. Aortic valve evaluation with resection of vegetations, possible Lambl bodies?, And aortic valve repair by plication of the noncoronary cusp
3. Radical mitral valve repair [32 mm band angioplasty, resection of most of P3, primary closure of P3 onto P2, cleft closure P2 P3, commissural plasty at A3 P3 side]
4. Left atrial appendage exclusion [40 mm clip]
5. Transesophageal echocardiography
6. Placement of temporary atrial ventricular pacing wires
Date of Surgery: 09/01/24
Comorbidities:
1. Endocarditis of the mitral valve, concurrent antibiotic treatment with mobile vegetation
2. Mitral valve insufficiency, Type II pathology with perforation and destruction of the P3 scallop
3. Mobile vegetations on the aortic valve leaflets, ventricular surface with mild aortic valve insufficiency
4. Hypertension
5 hyperlipidemia
6. History of gastric bypass
7. Diabetes mellitus
8. Morbidly obese with a BMI of 32
Attending Surgeon: Jimmy Chou MD, MS
Assistants: Mishel Russo PA-C (present and necessary to first aid nurse, retraction, suction, exposure, suture management, and wound closure under my direction)
Anesthesiology: Carson Lee MD and Sabra Soares CRNA
Scrub and Circulating RNs: Yulisa Bowen, RN, Geeta Nice RN
Human Resources Compensation Analyst: Mishel Godwin CCP
Anesthesia: GETA
EBL: per perfusion records
Products: None
CPB Time: 101 minutes
Aortic Cross Clamp Time: 86 minutes
Indication(s) for Procedures: This is a 69-year-old male who was suffering from fevers for approximately 2 months and ultimately came to the hospital after feeling unwell. He was found to have bacteremia and also a mobile vegetation on the mitral
valve with newly diagnosed mitral valve insufficiency. He was treated with antibiotics and was counseled on surgical intervention given the large and mobile nature of the vegetation on his mitral valve leaflets. He ultimately wanted to wait till
after the holidays for surgery. Today he came back for intervention in the form of possible mitral valve repair possible mitral valve replacement with left atrial appendage exclusion.
Aortic Valve Description: On intraoperative BRENDA, he had mobile vegetations on the ventricular aspect of his aortic valve leaflets, given his history of endocarditis, the aortic valve was also explored. There was 5 mm size vegetations attached to
the ventricular aspect of the leaflets mostly at the nodes of Arantius. He also had scattered mild calcification but his AV leaflets were functional and had no significant gradient prior to surgery. I elected to resect these masses and then repair
his NCC as it appeared a little prolapsed. He had mild AI to begin with and resulted in trace/mild AI after repair and resection.
Mitral Valve Description: The P3 scallop was essentially destroyed with a large mobile vegetation attached to it. This was resected and sent off for culture and pathology. There was also minor smaller vegetations towards the A2 A3 scallop which
was resected sharply. There was a mild degree of mitral annular calcification and a mildly dilated annulus.
Findings: His left ventricular ejection fraction preoperatively was approximately 60% with no regional wall motion abnormalities. During induction and Cordis placement, he had significant hypotension that required resuscitation and rapid injection
of vasoactive medications. At that time he also had severe pulmonary hypertension with his PA pressures in the 60s to 70s. An aortotomy was performed and the aortic valve was inspected directly. He also had vegetations on the ventricular aspects
of all 3 leaflets. The leaflets are mildly calcified but overall working appropriately and so were not resected. After removing these masses on the ventricular aspect sharply with a 15 blade, I plicated the noncoronary cusp at the node of Arantius
as it appeared to be somewhat prolapsed in comparison to the other leaflets. His mitral valve had a moderately-severe degree of insufficiency secondary to destruction of the P3 scallop from the vegetations and infection. There was a large 1-1.5cm
mobile vegetation attached to a stalk at the P3 scallop. The jet skirted anterior laterally towards the P1 scallop. His mitral valve was repaired after resecting the vegetation of the destroyed leaflet tissue. The remaining leaflet tissue was
then closed primarily in an interrupted fashion with 5-0 Prolene. A commissural plasty was also performed at the A3 side. The free margin of P2 and P3 was also plicated and remodeled. A 32 mm band annuloplasty was applied using a total of 12
nonpledgeted 2-0 Ethibond sutures secured with core knots. Pressurization of the left ventricle revealed good coaptation height and posterior coaptation margin with ink test. His left atrial appendage was verified to be free of any thrombus or
debris preoperatively and found to be totally occlusive at the conclusion of the case with the clip applied flush to the base. After coming off of cardiopulmonary bypass, he had no residual mitral valve insufficiency with a mean gradient of 1 mmHg,
the aortic valve had a mean gradient of 10-12 pre and post repair. There was a mild degree of aortic valve insufficiency presurgery and a trace to mild degree post surgery. He did not require any blood products, he was started on 3 of dobutamine
as he was somewhat sluggish coming off of cardiopulmonary bypass. No blood products were transfused. He was in sinus rhythm after short period of AV pacing. Cultures were sent for both the aortic specimen and mitral valve specimens.
Specimen(s): Mitral valve vegetation, aortic valve vegetation.
Prosthesis:
32 mm Leon physio flex annuloplasty band, serial #[id number]
40 mm left atrial appendage clip, serial number at [id number]
Description of Procedure: The patient was taken to the operating room. Their identity and procedure to be performed were verified and they were positioned supine on the operating table. Induction via general anesthesia with endotracheal intubation
was performed and central venous access and arterial monitoring were inserted. A preoperative transesophageal echocardiogram was performed to assess cardiac function and valvular function. The patient was then prepped and draped from chin to feet in
a sterile fashion. A preoperative time-out was performed with all members of the team present. A midline chest incision was performed along with median sternotomy. The innominate vein was isolated. Full heparinization was given (a total of 65,000
units). We created a pericardial well. The aortic cannulation site was chosen where it was soft, pliable, and free of calcium. Cannulation was performed with an arterial cannula in the ascending aorta, angled metal tip cannular in the superior vena
cava and straight bendable cannula in the inferior vena cava. The arterial cannula line had an appropriate bounce and correlating pressures. Next, a root vent/antegrade cannula was inserted into the ascending aorta. The ACT was confirmed to be over
400 and retrograde autologous priming was performed before commencing cardiopulmonary bypass. The pulmonary artery was away from the aorta to facilitate a clamp site. Sondergaard�s groove was developed after creating the oblique sinus. The
aortic cross-clamp was placed after decreasing the flow on the bypass and mean arterial pressure. A total of 1.2L initial dose of antegrade Del-Nido cardioplegia solution was given and planned for re-dosing every 75 minutes as necessary. There was
rapid electro-mechanical arrest of the heart at 325 cc of cardioplegia. The left ventricle was observed for distention on echocardiogram and manual palpation. Cold slush was placed into a lap on the RV and we systemically cooled to 34 degrees
centigrade. Once the heart was fully arrested, it was medialized and the left atrial pannus was clipped flush to the base with a 40 mm device.
Carbon dioxide was used to flood the field. We manually identified the location of the right coronary take off. An aortotomy was made approximately 2cm above the sinotubular junction in an oblique fashion. The location of both left and right
coronary vessels were visualized in the root.the leaflets were then examined and any vegetations were resected. A 7-0 Prolene was used to plicate the noncoronary cusp at the [place] portion. Testing revealed decent coaptation height and I felt the
valve was likely functional. The aorta was then closed in a double layer fashion with 4-0 Prolene.
Next, the mitral valve was accessed via the left atrium at the interatrial groove followed by valve analysis. The mitral valve was repaired as described above. Dynamic inflation the left ventricle demonstrated good coaptation with the posterior
coaptation margin. The left ventricular vent was repositioned across the mitral valve into the left ventricular and the left atrium was closed with a 3-0 prolene.
De-airing maneuvers were performed and temporary atrial and ventricular pacing wires were placed at the SVC/RA junction and base of the right ventricle, respectively. The patient was placed in a Trendelenburg position and flows on bypass were
lowered. The aortic cross clamp was removed and flows were slowly brought back up. The left atrial suture line was hemostatic. Transesophageal echocardiography revealed no evidence of systolic anterior motion and ventricular function was normal.
He had mild degree of aortic valve insufficiency at the end of the case and was trace to mild at the conclusion of the case. There is no residual mitral valve insufficiency. The mean grain across the mitral valve was 1 mmHg. Once de-airing was
satisfactory the root vent was removed. After verifying acceptable parameters, we initiated weaning from cardiopulmonary bypass. Once we were off cardiopulmonary bypass, the venous cannulas was clamped and removed sequentially. A test dose of
protamine was administered and the patient was monitored for any adverse reaction before resuming protamine. Once half of the protamine dose was delivered, pump suckers were turned off and the systolic blood pressure was lowered for aortic
decannulation. The aortic cannula was removed and purse strings were tied down. All cannulation sites were oversewn with a 4-0 prolene. The left atrial suture line was inspected and hemostasis was confirmed. Mediastinal hemostasis was obtained. Two
#24 Adam drains were placed within the pericardium. The sternum was approximated with 4 #7 single and 3 #8 double stainless steel wires. Fascia was approximated with #1 vicryl suture. The subcutaneous, dermis and epidermis were closed in layers in
a running fashion. The skin wound was cleansed and dressed.
All instrument, sponge, and needle counts were confirmed to be correct x 2 at the end of the operation. The patient was transferred to the cardiac intensive care unit in critical but stable condition.
I, Dr. Jimmy Chou, was present, scrubbed for, and performed all critical elements of this procedure.
Jimmy Chou MD, MS
Cardiothoracic Surgeon
[facility]
This dictation was created using the [employer] dictation system. Please excuse any grammatical, typographical, or 'sound alike' errors
[2024-09-01 11:11] LABS: Glucose - Point of Care 54 mg/dl (70-99)
[2024-09-01 11:23] LABS: Hematocrit 22.3 % (39.0-52.0); Platelet Count 180 10^3/uL (130-400)
[2024-09-01 11:28] LABS: INR 1.49; PT 18.3 Sec (11.4-14.6)
[2024-09-01 11:29] LABS: APTT 32.1 Sec (23.4-35.0)
--- NOTE | 2024-09-01 11:30 | PTCARENOTE ---
Pt received from CVOR at 1050; Sedated and intubated; NS rhythm on monitor; VSS; RIJ cordis and swan present?; DP and radial pulses present; Lungs clear/diminished; ETT size 8 positioned and secured at 27 cm right lip; Ventilator settings SIMV
14/500/5 peep FiO2 80%; CTx2 to -20 cm wall suction draining bloody drainage - no air leak, tidaling, or crepitus noted; Hypoactive BS; Thapa catheter in place draining clear, yellow urine; Skin CDI/Groin puncture site CDI/Sternal Midline Incision
CDI; Edema present?; A-line in right radial artery - line zeroed and level; Cordis floated in right RIJ ; insulin/precedex/Dobutamine infusing - see nursing flowsheets for further details; See nursing documentation for further details
[2024-09-01 11:31] LABS: Glucose - Point of Care 193 mg/dl (70-99)
[2024-09-01 11:33] LABS: Mixed Venous O2 Saturation 72.2 %
[2024-09-01 11:35] LABS: B.E. -14.9 mmol/L; Ionized Calcium 0.58 mMOL/L (1.15-1.33); O2 Saturation % 99.3 % (94-98); O2 Therapy VENT; PCO2 19 mmHg (35-48); PO2 112 mmHg (83-108); Potassium 1.1 mMOL/L (3.5-5.1); Sodium 145 mMOL/L (136-145); pH 7.33 (7.35-7.45)
[2024-09-01 11:51] LABS: Blood Urea Nitrogen 14 mg/dl (9-20); Estimated Creatinine Clearance 90 ml/min; Glucose 129 mg/dl (70-99); Magnesium 2.6 mg/dl (1.6-2.3)
--- NOTE | 2024-09-01 11:51 | W.PN.UPDATE ---
Update Note
Progress Note Update
69-year-old male previously admitted with 3-month history of fever and chills and 31 pound weight loss. Patient is found to have strep mitis mitral valve endocarditis and was evaluated by infectious disease and started on
ceftriaxone 2 g IV daily blood cultures from 08/13 reported no growth. Left heart cath from 08/15 reported no coronary disease. Patient had a midline catheter placed for antibiotic therapy with expected end date of 09/09/24. Patient electively
admitted 09/01/2024 for mitral valve repair and left atrial appendage clip. Intraoperatively, inspection of the aortic valve revealed vegetation versus possible Lambl bodies.
IV fluids: 1100
U.O.:� 450
Blood:� none
Wires:� 2 atrial and 1 bipolar v-wire
Inotropes:� dobutamine @ 3
Pressors:� none
Sedatives:� Precedex
�
NEURO: sedated on Precedex, pupils +2mm B/L
RESP: #8OT @24cm> 500/80%/07/02. Lungs clear B/L. 2 mediastinal (0cc on arrival) tubes to -20cm suction. Sanguineous drainage
CV: RRR +S1, S2, no S3, no�rub, no murmur. Dermabond to median sternotomy. RIJ w/[place] locked @ 50cm. PA 34/14; CVP 3; C.O XX/CI XX
ABD: round, soft, no BS
EXT: no edema, +2/4 DP pulses B/L, no femoral bruit, XX radial A-line intact
: Thapa with clear yellow urine
�
A/P: POD #0 s/p Aortic valve resection of vegetations, possible Lambl bodies and aortic valve repair by plication of the noncoronary cusp. Radical mitral valve repair (#32 mm band angioplasty, resection of most of P3, primary closure of P3 onto P2,
cleft closure P2 P3, commissural plasty at A3 P3 side]. Left atrial appendage exclusion [40 mm clip]
BRENDA: EF�65%. Trace�mild AI. AV gradients 22/12 mmHg. no MR. Mitral valve gradients 2/1 mmHg. Trace TR.
- will need instruction regarding antibiotic prophylaxis for dental and invasive procedures
- initial ABG w/inaccurate result>redrawn and normal> continue to wean Precedex and extubate
- wean Dobutamine off as CI>3
# post-op sinus bradycardia (40s)
- hold Amio/Lopressor (for AF prophylaxis)
- DDD @ 70
# Strep mitis stebbins mitral valve endocarditis
- OR culture results pending
- continue Ceftriaxone 2G IV
- ID consulted
�
# acute surgical blood loss anemia-expected
- trend CBC
�
# T2DM (A1C 8.6)
- insulin infusion x 48h
- consulted DM PRODUCT TESTER [employer] for recommendations-on Rybelsus 14mg daily and MFM 1000mg q AM and 500mg q PM
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
- slow introduction to solids
- takes MVI, no other supplements @ home
�
# Hyperlipidemia
- resume�rosuvastatin 5mg daily POD #1 if tolerating solids
--- NOTE | 2024-09-01 11:51 | CON.ID ---
Addendum entered and electronically signed by Lay Santos MD 09/01/24 15:50:
I personally performed a history and physical exam of the patient and discussed management with the resident. I reviewed the resident's note and agree with the documented findings and plan of care HPI/CC.
S: pt remains on vent post-op
O: Exam CV: RRR, S1, S2,no murmur. Lungs clear anteriorly, Abd soft nontender, Ext no edema. Sternum incision no erythema
A/P:
# Strep mitis/oralis MV infective endocarditis dx'd 08/11/24
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
# Leukocytosis post-op
- 09/01/24 s/p radical MV repair; finding of mobile vegetations on AV s/p AV repair
- Valve cultures pending
- Continue ceftriaxone 2g IV q24 (d20) through 09/09/24.
- If valve culture is positive, extend IV abx another 4 weeks.
- Follow clinically
Original Note:
Consultation
-
Date/Time Consultation Requested: 09/01/2024
Date/Time Consultation Performed: 09/01/2024
Requesting Provider: Alondra Mclean CRNP
Performing Provider: Lay Santos MD
Reason for Consultation: Mitral valve endocarditis
Chief Complaint / Past History
History of Present Illness
This is a 69-year-old male with history of bacteremia and endocarditis of the mitral valve with insufficiency and a large mobile vegetation, who initially presented to ER 08/11 - 08/15 for complaints of fatigue, intermittent fever and weight
loss. He was found to be septic and blood cultures were positive for Streptococcus mitis oralis. BRENDA confirmed a large 1.4 x1.1 cm heterogeneous pedunculated vegetation on mitral valve. At that time he was initiated on IV ceftriaxone. CT surgery
was consulted with plan for mitral valve repair and replacement. At that admission he was given the option to have his mitral valve procedure done, but patient declined, requesting procedure be done after the holiday. He was discharged home on IV
ceftriaxone till 09/09. Repeat blood cultures were negative prior to being discharged. His procedure was eventually planned for 08/31. The patient returned today for planned procedure. Patient had a aortic valve repair and radical mitral valve
repair today 09/01/2024.
Past History
Past Medical History: Other (DM,Dyslipidemia, HTN, Hx Gastric Bypass.)
Allergy History:
No Known Allergies Allergy (Verified 08/11/24 15:38)
Medications Reviewed: Yes
Current Antibiotics:
Ceftriaxone
Social History
Tobacco: Non-Smoker
Alcohol: None
Drug: None
Personal:
Living: With Family
Family History
Family History: Not Pertinent
Review of Systems
Vital Signs
Temp BP Pulse Ox
97.6 F 144/120 97
09/01/24 11:00 09/01/24 05:10 09/01/24 05:00
Physical Exam
Physical Exam
Constitutional: Other (intubated and sedated)
Eyes: No Conjunctival Hemorrhage
Cardiovascular: Regular Rate and S1/S2
Gastrointestinal: Soft and Non Tender
Genito-Urinary: Thapa
Extremities: Negative Edema
Lab / Diagnostic Study Results
PT 18.3 Sec (11.4-14.6) H 09/01/24 10:57
INR 1.49 09/01/24 10:57
Ur Squamous Epith Cells - /LPF (Few) 09/01/24 07:00
Microbiology Results
Micro:
09/01/24 08:20 Fungal Culture - Preliminary
Valve
09/01/24 08:20 Fungal Culture - Preliminary
Valve
09/01/24 08:20 Tissue Culture - Pending
Valve Gram Stain - Pending
09/01/24 08:20 Tissue Culture - Pending
Valve Gram Stain - Pending
09/01/24 08:20 Anaerobic Culture - Pending
Heart
09/01/24 08:20 Anaerobic Culture - Pending
Heart
09/01/24: BRENDA; Overall LVEF is approximately 60% with no RWMA.
Moderate concentric left ventricular hypertrophy.
Moderately dilated left atrium.
Moderately dilated right atrium.
Mild tricuspid regurgitation.
Severe pulmonary hypertension.
Trace pulmonic insufficiency.
Mild aortic insufficiency.
AV is tricuspid with calcified and mildly restricted cusps.
There is a mass attached to the ventricular surface of the AV.
FRANKIE calculates to 3.2 cm2 using the continuity equation.
Moderate to severe mitral regurgitation.
MR etiology is from a P3 mass and destruction of the P3 scallop.
The MR jet courses from the P3 scallop to the anterolateral commissure.
Mid ascending aorta is dilated measuring 4.1 cm at the level of the RPA.
Mild sessile atheroma seen in the descending aorta and distal arch.
Assessment / Plan
Assessment/Plan
#endocarditis of the mitral valve with insufficiency and large mobile vegetation, aortic valve vegetations.
s/p mitral and aortic valve repair 09/01/2024
currently intubated and sedated post-op
#Hx of Strep mitis/Oralis Bacteremia
#Poor dentition - source of bacteremia/IE
-Continue ceftriaxone 2g IVq24h through 09/09/24 as planned.
-OR Cultures currently pending
-Recommend antibiotic prophylaxis for dental procedures
Conditions Present Prior to Admission
T2DM
Dyslipidemia
Essential HTN
Hx Gastric Bypass
[2024-09-01 12:04] LABS: B.E. 0.6 mmol/L; HCO3 26.5 mmol/L (21-28); Ionized Calcium 1.27 mMOL/L (1.15-1.33); O2 Saturation % 98.8 % (94-98); PCO2 48 mmHg (35-48); PO2 108 mmHg (83-108); Sodium 138 mMOL/L (136-145); pH 7.35 (7.35-7.45)
[2024-09-01 12:05] LABS: O2 Therapy SIMV FiO2 80%
[2024-09-01] MEDS: CARDENE 200 IV (12:22)
[2024-09-01 12:37] LABS: Glucose - Point of Care 179 mg/dl (70-99)
[2024-09-01] MEDS: LR 250 IV ×3 (13:30→18:50)
[2024-09-01 13:37] LABS: % Basophils 0.3 % (0-2); % Eosinophils 0.1 % (0-6); % Immature Granulocytes 0.9 % (0-0.5); % Lymphocytes 3.5 % (20.5-51.1); % Monocytes 5.6 % (1.7-9.3); % Neutrophils 89.6 % (42.2-75.2); Absolute Basophils 0.1 10^3/uL (0-0.2); Absolute Immature Granulocytes 0.2 10^3/uL (0-0.05); Absolute Lymphocytes 0.6 10^3/uL (1.2-3.4); Absolute Neutrophils 15.5 10^3/uL (1.4-6.5); Hematocrit 28.3 % (39.0-52.0); Mean Corp Hgb Conc. 31.8 g/dL (33.0-37.0); Mean Corpuscular Hgb 27.8 pg (27.0-31.0); Mean Corpuscular Volume 87.3 fL (80.0-94.0); Mean Platelet Volume 10.3 fL (7.4-10.4); Nucleated Red Blood Cells % 0 % (-); Platelet Count 257 10^3/uL (130-400); Red Blood Cell Count 3.24 10^6/uL (4.70-6.10); Red Cell Dist. Width 14.3 % (11.5-14.5); White Blood Cell Count 17.3 10^3/uL (4.8-10.8)
--- NOTE | 2024-09-01 13:52 | W.PN.CD ---
Addendum entered and electronically signed by Gabe Rodriguez MD 09/01/24 17:46:
69yo male with prior endocarditis, mod/severe MR is admitted following repair of both AV and MV. He is weaning from sedation, drips, vent. Exam with RRR, no murmurs, trace edema. BRENDA: EF 65% post op, no sig MR, mild AR. Tele: currently A pacing.
Hopeful for extubation this evening.
Abx per ID.
Original Note:
Today's Communication / Plan
-
Extubation today per CT surgery
Follow telemetry
Impression / Plan
-
IMPRESSION/PLAN: 69M with HTN and HLD who presented last month with intermittent fevers, chills & weight loss over the last 2 months who was diagnosed with endocarditis. He presents for valve repair.
Outpatient sedimentationist: Dr. Smith
Aortic valve repair and radical mitral valve repair on 09/01/[address] Chou
-Aortic valve with resection of vegetation (possible Lambl bodies?) and aortic valve repair by plication of the NCC
-Radical MV repair 32 mm band angioplasty, resection of most of P3, primary closure of P3 and P2, cleft closure P2 P3, commissural plasty at A3 P3 side
-Post MV gradient 1 mmHg, pre and post aortic valve mean gradient 10-12 mmHg
-On dobutamine at 3
-EKG with sinus rhythm, IRBBB (new), prolonged QT, EKG in a.m.
Postoperative sinus bradycardia, DDD at 70 bpm
Hypertension, follow in the postoperative setting
Strep mitis endocarditis, on ceftriaxone, culture sent, ID following
NIDDM, Hgba1c 8.6%
Prior Srinivas-en-Y bypass
SUBJECTIVE:
Operative notes reviewed. Intubated and sedated.
Physical Exam
Vital Signs/Labs
Vital Signs
Temp Pulse Resp BP Pulse Ox
97.9 F 70 22 96/69 98
09/01/24 12:00 09/01/24 13:10 09/01/24 13:10 09/01/24 13:00 09/01/24 13:10
08/31/24 09/01/24 09/02/24
06:59 06:59 06:59
Actual Weight 101.5 kg
09/01/24 10:57
PT 18.3 Sec (11.4-14.6) H 09/01/24 10:57
INR 1.49 09/01/24 10:57
APTT 32.1 Sec (23.4-35.0) 09/01/24 10:57
Magnesium 2.6 mg/dl (1.6-2.3) H 09/01/24 10:57
Physical Exam
Constitutional: No acute distress and Comfortable
EENT: Anicteric and Moist mucous membranes
Cardiovascular: Rhythm & rate is regular, Pedal edema is absent and S1S2 is normal
Respiratory: Lungs clear to auscul. and Other (ETT to MV)
GI: Soft, Distention absent and Flat
Neuro/Psych: Other (Nods head appropriately)
Other: Skin (Warm and dry)
Data Reviewed
-
Date of Service: September 01, 2024
Labs: Labs Reviewed by me
Old Records: Reviewed
[2024-09-01 13:56] LABS: Glucose - Point of Care 156 mg/dl (70-99)
--- NOTE | 2024-09-01 14:46 | PTCARENOTE ---
RT in room and pt placed on CPAP @1435. ABG to be done at at 1505
[2024-09-01 15:11] LABS: Glucose - Point of Care 152 mg/dl (70-99)
[2024-09-01 15:19] LABS: B.E. 1.5 mmol/L; HCO3 27.2 mmol/L (21-28); O2 Saturation % 99.3 % (94-98); O2 Therapy 40; PCO2 47 mmHg (35-48); PO2 119 mmHg (83-108); pH 7.37 (7.35-7.45)
[2024-09-01 15:26] LABS: Hematocrit 29.4 % (39.0-52.0); Hemoglobin 9.1 g/dL (13.0-18.0); Platelet Count 289 10^3/uL (130-400)
[2024-09-01] MEDS: NSS 500 IV (15:28)
[2024-09-01 16:03] LABS: Glucose - Point of Care 160 mg/dl (70-99)
[2024-09-01] MEDS: FLUSH (NSS) 1 FLUSH IV ×2 (16:06→20:44)
[2024-09-01] MEDS: LOW STRENGTH ASPIRIN 81 MG PO (16:27)
[2024-09-01] MEDS: ROCEPHIN 2000 MG IV (16:28)
[2024-09-01] MEDS: ANCEF 5 IV (16:28)
[2024-09-01] MEDS: NEURONTIN 100 MG PO ×2 (16:29→22:05)
[2024-09-01] MEDS: TYLENOL 1000 MG PO ×2 (16:29→22:05)
[2024-09-01] MEDS: CRESTOR 5 MG PO (16:29)
[2024-09-01] MEDS: STERILE WATER FOR INJECTION 20 ML IV (16:29)
[2024-09-01] MEDS: NEURONTIN PO (17:05)
--- NOTE | 2024-09-01 17:58 | PTCARENOTE ---
pt on 2 of Levo, and 2L nc; no complaints of pain. CT's w/ minimal drainage, varghese clear yellow wnl. see worklist for detailed assessment
[2024-09-01 20:10] LABS: Glucose - Point of Care 145 mg/dl (70-99)
[2024-09-01 20:10] LABS: Glucose - Point of Care 130 mg/dl (70-99)
[2024-09-01] MEDS: NOVOLOG FLEXPEN SC ×3 (20:45→20:46)
[2024-09-01] MEDS: SENOKOT-S 1 TABLET PO (20:57)
[2024-09-01 21:30] LABS: Glucose - Point of Care 113 mg/dl (70-99)
--- NOTE | 2024-09-01 22:22 | PTCARENOTE ---
Pt AAOx4 sleeping comfortably on 1L nc, Levo gtt stopped; no changes from previous assessment. see worklist for detailed assessment
[2024-09-01 22:31] LABS: Glucose - Point of Care 107 mg/dl (70-99)
[2024-09-01 23:26] LABS: Glucose - Point of Care 93 mg/dl (70-99)
[2024-09-02] VITALS (27 sets, daily range): BP systolic 107–147; BP diastolic 61–90; PULSE 80; O2SAT 93–98; BMI 31.9
--- NOTE | 2024-09-02 00:30 | PTCARENOTE ---
Patient received resting in bed. Dozing intermittently. Patient A+A+Ox3 during periods of care. No neurological deficits noted. No c/o headache, dizziness or lightheadedness. O2 at 1L via NC. SpO2 96%. No c/o SOB. No s/s of respiratory
distress. Two chest tubes - Mediastinal x2 - Intact and patent - 10 ml red drainage - No air leak. Chest tube dressing intact. 100% A-Paced. Heart rate 80. Temporary Epicardial Pacemaker - AV Wires - V-Wire off - AAI Rate 80, Output 10,
Sensitivity 0.4. Patient with no c/o chest pain, pressure or discomfort. Abdomen round, soft, nontender. Hypoactive to normoactive bowel sounds. No BM. No c/o nausea. No vomiting. Thapa catheter - Temperature sensing - Light symone, yellow
urine - Outputs as documented. Patient with no c/o back or flank pain. Right I.J. Cordis with [place] Layla catheter. Right radial arterial line. A-Line, PAP, CVP with pressure bag/saline flush - Flush without difficulty - Zeroed and calibrated -
Waveforms within normal limits. C.O. 6.05 C.I. 2.76 PAP 33/19 (23) CVP 8 SVR 899. Left upper arm Midline intact. Sternal incision intact - Surgical adhesive - Open to air. Right groin puncture intact. Positive, palpable pulses. Insulin gtt
- Glycemic Protocol. Assessment/Interventions as documented.
[2024-09-02] MEDS: ANCEF 5 IV ×2 (00:37→08:05)
[2024-09-02 00:42] LABS: Glucose - Point of Care 98 mg/dl (70-99)
[2024-09-02 02:11] LABS: Glucose - Point of Care 99 mg/dl (70-99)
--- NOTE | 2024-09-02 02:30 | PTCARENOTE ---
Patient A+A+Ox3. No neurological deficits noted. No c/o pain or discomfort. Patient given CHG bath and linens changed. Mouth care provided. C.O. 5.93 C.I. 2.71 SVR 1025 PAP 33/20 (25) CVP 7. 100% A-Paced. Heart rate 80.
Assessment/Interventions as documented.
[2024-09-02 03:47] LABS: Glucose - Point of Care 112 mg/dl (70-99)
[2024-09-02 04:12] LABS: Hematocrit 27.6 % (39.0-52.0); Hemoglobin 8.6 g/dL (13.0-18.0); Mean Corp Hgb Conc. 31.2 g/dL (33.0-37.0); Mean Corpuscular Hgb 27.1 pg (27.0-31.0); Mean Corpuscular Volume 87.1 fL (80.0-94.0); Mean Platelet Volume 10.4 fL (7.4-10.4); Platelet Count 285 10^3/uL (130-400); Red Blood Cell Count 3.17 10^6/uL (4.70-6.10); Red Cell Dist. Width 14.3 % (11.5-14.5); White Blood Cell Count 18.8 10^3/uL (4.8-10.8)
[2024-09-02 04:34] LABS: Blood Urea Nitrogen 22 mg/dl (9-20); Calcium 8.8 mg/dl (8.4-10.2); Carbon Dioxide 27 mmol/L (22-30); Chloride 104 mmol/L (98-107); Estimated Creatinine Clearance 90 ml/min; Glucose 97 mg/dl (70-99); Magnesium 2.4 mg/dl (1.6-2.3); Potassium 4.7 mmol/L (3.5-5.1); Sodium 139 mmol/L (135-145); eGFR > 60.00
--- NOTE | 2024-09-02 05:15 | PTCARENOTE ---
Patient A+A+Ox3. No neurological deficits noted. No c/o pain or discomfort. AM labs collected and sent. C.O. 7.37 C.I. 3.37 SVR 890. PAP 36/16 (24) CVP 7. Portable CXR completed. Patient's at bedside. Assessment/Interventions as
documented.
[2024-09-02 06:08] LABS: Glucose - Point of Care 93 mg/dl (70-99)
--- NOTE | 2024-09-02 06:09 | W.PN.CT ---
Today's Communication / Plan
-
Plan:
-No major issues overnight. Hemodynamically and neurologically intact
-Successfully extubated on 09/01/24 @ 1533
-Intrinsic rhythm is sinus bradycardia @ 51 bpm, currently a-paced @ 80 bpm. Amiodarone and BB placed on hold
-Weaned off Dobutamine and Levophed gtt, remains on insulin gtt per protocol
-Last CI 3.37 U/O since OR: 1460
-Chest tube output: 2meds 130/260
-Cont. current meds (ASA, holding Lopressor and Amiodarone, Crestor; will add Plavix)
-Diabetes education/management following (hgb A1C of 8.6)
-Tele phase tomorrow when off insulin gtt per protocol. Renewed insulin gtt
-D/C'd aspenan and a-line this AM @ 0500
-D/C halima this AM @ 0600
-Maintain temporary A/V PW
-Maintain cordis
-Encourage use of IS
-Wean off of O2 as tolerated
-OOB into chair/Ambulate
-F/U culture
Assessment / Plan
-
Assessment:
-S/p Standard sternotomy with aortic and bicaval cannulation/ Aortic valve evaluation with resection of vegetations, possible Lambl bodies?, And aortic valve repair by plication of the noncoronary cusp/ Radical mitral valve repair [32 mm band
angioplasty, resection of most of P3, primary closure of P3 onto P2, cleft closure P2 P3, commissural plasty at A3 P3 side]/Left atrial appendage exclusion [40 mm clip], by Dr. Chou, 09/01/24, pod#1
-Mitral valve endocarditis (+strep mitis/oralis from culture 08/11)
-Moderate - severe MR
-Mobile vegetations on the aortic valve leaflets, ventricular surface with mild aortic valve insufficiency
-Mild dilated Asc. Aorta (4.1 cm)
-Pulmonary htn
-LVEF 60%, postop 65% per intraop BRENDA
-HTN
-T2DM (hgb A1C 8.6)
-Class 1 obesity (BMI 32)
-HLD
-Bradycardia
-S/P Gastric bypass
-Acute postop blood loss/Anemia (stable without blood transfusion)
-Acute postop atelectasis
-Acute postop hypovolemia with subsequent hypervolemia
Discussed patient care with: Cardiology, Nursing, Respiratory Therapy, Pharmacy and Care Team
Subjective
Procedure
S/p Standard sternotomy with aortic and bicaval cannulation/ Aortic valve evaluation with resection of vegetations, possible Lambl bodies?, And aortic valve repair by plication of the noncoronary cusp/ Radical mitral valve repair [32 mm band
angioplasty, resection of most of P3, primary closure of P3 onto P2, cleft closure P2 P3, commissural plasty at A3 P3 side]/Left atrial appendage exclusion [40 mm clip], by Dr. Chou, 09/01/24
-
Date of Service: September 02, 2024
Pt c/o incisional pain, otherwise feels well
Objective Data
-
Lab Results
09/02/24 03:40
09/02/24 03:40
PT 18.3 Sec (11.4-14.6) H 09/01/24 10:57
INR 1.49 09/01/24 10:57
APTT 32.1 Sec (23.4-35.0) 09/01/24 10:57
Vital Signs
Vital Signs
Temp Pulse Resp BP Pulse Ox
98.0 F 80 16 116/78 96
09/02/24 05:00 09/02/24 05:00 09/02/24 05:00 09/02/24 04:30 09/02/24 05:00
CT Intake/Output/Weight
09/01/24 09/01/24 09/02/24
06:59 18:59 06:59
Intake Total 157.5 / 592.1 434.6 / 592.1
Output Total 1027 / 1646 619 / 1646
Balance -869.5 / -1053.9 -184.4 / -1053.9
SaO2: 96 (1L)
Physical Exam
-
General: Awake, Oriented and AOx3
Cardiovascular: Regular rate & rhythm, No Murmurs, No Rub and No Gallop
Respiratory: Decreased Breath Sounds (at bases, otherwise clear)
Sternum: Stable
Incision: Clean, Dry, Intact and Dressing Intact
Extremities: No Edema
Data Reviewed
-
Lab Results: Results Reviewed
Medications: Active Meds Reviewed
Chest X-Ray: Report Reviewed and Image Reviewed
ECG: Report Reviewed and Image Reviewed
[2024-09-02] MEDS: TYLENOL 1000 MG PO ×3 (06:38→23:09)
[2024-09-02] MEDS: ROXICODONE 5 MG PO ×4 (06:38→23:09)
[2024-09-02] MEDS: NEURONTIN 100 MG PO ×3 (08:02→23:10)
[2024-09-02 08:03] LABS: Glucose - Point of Care 89 mg/dl (70-99)
[2024-09-02] MEDS: FEOSOL 325 MG PO (08:03)
[2024-09-02] MEDS: SENOKOT-S 1 TABLET PO ×2 (08:03→19:37)
[2024-09-02] MEDS: VITAMIN C 500 MG PO (08:03)
[2024-09-02] MEDS: LOW STRENGTH ASPIRIN 81 MG PO (08:04)
[2024-09-02] MEDS: MAGNESIUM OXIDE 500 MG PO ×2 (08:04→19:37)
[2024-09-02] MEDS: BACTROBAN 2% OINTMENT 1 APPLIC NASAL ×2 (08:04→19:37)
[2024-09-02] MEDS: PROTONIX 40 MG PO (08:04)
[2024-09-02] MEDS: CRESTOR 5 MG PO (08:04)
[2024-09-02] MEDS: NOVOLOG FLEXPEN SC (08:21)
[2024-09-02] MEDS: NSS IV (08:33)
--- NOTE | 2024-09-02 08:40 | W.PN.INTV ---
Today's Communication / Plan
Recommendations
Pain control
Insulin drip with goal BG 140�180
Up OOB as tolerated
Encourage incentive spirometer use
Daily CXR
Goal SpO2 >90-94%
Removal of mediastinal chest tubes per CT surgery team
Patient will remain CVICU status until tomorrow as he will remain on the insulin drip. Director Of In Service Education/Pulmonary services will continue to follow along while he remains in the CVICU. Once downgraded then we will sign off at that time.
Assessment
-
Assessment: 69-year-old male with a past medical history of hypertension, DM type II, chronic cough and history of infective endocarditis who presents for elective aortic valve repair + mitral valve repair. Patient was recently hospitalized from
08/11 - 08/15/2024 and was diagnosed with infective endocarditis with Streptococcus mitis + oralis bacteremia with ALICIA with volume depletion. TTE on 08/11/2024 showed a hyperechoic mass attached to the anterior mitral leaflet. Subsequent BRENDA
showed a large 1.4 cm x 1.1 cm heterogeneous pedunculated vegetation on the P3 scallop of the mitral valve, with moderate MR, and preserved LVEF at 65 to 75%. Left heart catheterization on 08/15/2024 showed no significant CAD. He was discharged
home in stable condition and now presents for cardiothoracic intervention. On 09/01/2024, he underwent standard sternotomy and there was vegetations on the aortic valve which were resected and the aortic valve was repaired, and he also underwent a
radical mitral valve repair with left atrial appendage exclusion. There were no complications and he was transferred to the CVICU postoperatively and transfer coordinator services consulted for additional management/recommendations.
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
Impression:
#History of Streptococcus mitis/oralis bacteremia with endocarditis of the mitral valve with insufficiency and large mobile vegetation s/p radical mitral valve repair (POD #1)
#Aortic valve vegetations s/p resection with repair (POD #1)
#Left atrial appendage exclusion with 40 mm clip (POD #1)
#Acute on chronic anemia
#DM type II c/b hyperglycemia (HbA1c: 8.6 on 08/12/2024)
#History of Srinivas-en-Y gastric bypass
#Hypertension
Plan:
Patient was extubated on 09/01 to nasal cannula and is currently on room air breathing comfortably and saturating 95%
Maintain SpO2 >90-94%
prn nebulized bronchodilators
Encourage incentive spirometer 10x per hour for at least 4 hrs a day
Follow-up tissue cultures from the OR
Maintain MAP>65
Replete electrolytes with K>4, Mg>2
Monitor chest tube output (mediastinal x2)
Monitor hemoglobin
Monitor platelet count and coags
Transfuse blood products as needed to maintain Hb>7g/dL, plt>50k (given post-operative status)
CT surgery managing chest tubes
Monitor blood sugar to maintain euglycemia with goal BG 140-180
Insulin drip per protocol
Aspiration precautions
DVT prophylaxis
Early nutrition
Early mobilization
Patient will remain CVICU status until tomorrow as he will remain on the insulin drip. Director Of In Service Education/Pulmonary services will continue to follow along while he remains in the CVICU. Once downgraded then we will sign off at that time.
Critical care statement: A total of 41 minutes of critical care time was provided for this patient today. This includes management of ventilator, spontaneous breathing trial, arterial blood gases, pressors, of unstable vital signs, evaluation of the
patient at bedside, reviewing the patient's pertinent medical records including radiographs, microbiology, laboratory evaluations, and discussion with primary team and critical care nursing.
Subjective Dataa
Subjective Data
Date of Service:
Date of Service: September 02, 2024
Chief Complaint: Director Of In Service Education Follow Up
Subjective:
Patient doing well. Denies SOB, RODRIGUEZ, fevers or chills. Sitting in chair with at bedside. All questions were answered. Currently, heart rate 60, BP 120/62, mediastinal chest tubes x [address] and he is currently on insulin drip at 3.5
units/hr.
Review of Systems
General: Other (Negative unless mentioned above)
Objective Data
Data Reviewed
Vital Signs / I&O / Oxygen:
Vital Signs
Temp Pulse Resp BP Pulse Ox
98.7 F 80 16 123/78 92
09/02/24 07:45 09/02/24 08:30 09/02/24 08:00 09/02/24 08:00 09/02/24 08:43
Intake and Output
09/01/24 09/02/24 09/03/24
06:59 06:59 06:59
Intake Total 602.7 / 602.7 261 / 261
Output Total 1766 / 1766 20 / 20
Balance -1163.3 / -1163.3 241 / 241
SaO2 92
Nasal Cannula flow liters per 1
minute
Physical Exam
General: Respiratory Distress (negative), Chills (negative) and Sweats (negative)
HEENT: Normocephalic, Anicteric and Other (R-IJ cordis in place)
Cardiovascular: S1-S2, Murmur (negative) and Peripheral Edema (Trace LE edema bilaterally)
Respiratory: Wheeze (negative), Crackles (Bibasilar), Rhonchi (negative), Non-Labored Respirations, Stridor (negative) and Chest Tube (Mediastinal chest tubes x 2)
GI: Soft, Distended (Abdominal obesity), Non Tender and Normal Bowel Sounds
Neurology: AO x 3 and Tremors (negative)
Skin: Warm, Dry, Cyanosis (negative) and Jaundice (negative)
Labs/Micro/Reports
Lab Data
09/02/24 03:40
09/02/24 03:40
Laboratory Results
09/01/24 09/01/24 09/01/24
10:57 11:50 15:08
PT 18.3 H
INR 1.49
APTT 32.1
pH 7.33 L 7.35 7.37
pCO2 19 L 48 47
pO2 112 H 108 119 H
HCO3 10.0 L* 26.5 27.2
O2 Delivery Level Vent Simv fio2 80% 40
Microbiology
09/01/24 08:20 Valve Gram Stain - Preliminary
09/01/24 08:20 Valve Gram Stain - Preliminary
09/01/24 08:20 Valve Fungal Culture - Preliminary
09/01/24 08:20 Valve Fungal Culture - Preliminary
--- NOTE | 2024-09-02 08:57 | PTCARENOTE ---
Patient received from duco polisher resting in bed, AAO x 3, states pain controlled at this time. A-paced via cm, SaO2 @ 92% on RA. RIJ Cordis w/kvo infusing. Epicardial A+V wire to pulse generator, set to AAI @ 80, pacing appropriately. Mediastinal
chest tubes x 2, Y-connected to one pleurevac, to -20cm suction w/no air leak noted. All procedural sites stable. Thapa d/c'd 0630, DTV. Patient assisted oob to chair, standing scale weight obtained, settled to recliner for breakfast. Patient and
, at bedside, updated to plan of care for the day, in agreement. See work list for full assessment and interventions performed.
[2024-09-02 10:05] LABS: Glucose - Point of Care 153 mg/dl (70-99)
[2024-09-02] MEDS: NOVOLOG FLEXPEN 4 UNITS SC (11:28)
[2024-09-02 12:00] LABS: Glucose - Point of Care 166 mg/dl (70-99)
--- NOTE | 2024-09-02 12:17 | PTCARENOTE ---
Patient finishing lunch, tolerating po. VS stable. Patient assisted back to bed for nap. at bedside.
--- NOTE | 2024-09-02 13:00 | W.PN.CD ---
Today's Communication / Plan
-
-Continue supportive care.
-Wean off pressors
Impression / Plan
-
IMPRESSION/PLAN: 69M with HTN and HLD who presented last month with intermittent fevers, chills & weight loss over the last 2 months who was diagnosed with endocarditis. He presents for valve repair.
Outpatient cooler servicer: Dr. Smith
Aortic valve repair and radical mitral valve repair on 09/01/[address] Chou
-Aortic valve with resection of vegetation (possible Lambl bodies?) and aortic valve repair by plication of the NCC
-Radical MV repair 32 mm band angioplasty, resection of most of P3, primary closure of P3 and P2, cleft closure P2 P3, commissural plasty at A3 P3 side
-Post MV gradient 1 mmHg, pre and post aortic valve mean gradient 10-12 mmHg
-On dobutamine at 3
-EKG with sinus rhythm, IRBBB (new), prolonged QT, EKG in a.m.
Postoperative bradycardia,
-Postop sinus bradycardia with minimal sinus beats present now.
-Currently a paced rhythm with epicardial wires - 80 bpm
-Has junctional escape of 60 bpm
-Continue to monitor -no indication for pacemaker just yet.
Hypertension, follow in the postoperative setting
Strep mitis endocarditis, on ceftriaxone, culture sent, ID following
NIDDM, Hgba1c 8.6%
Prior Srinivas-en-Y bypass
SUBJECTIVE:
Alert and awake. Extubated. Doing well. Asymptomatic.
Physical Exam
Vital Signs/Labs
Vital Signs
Temp Pulse Resp BP Pulse Ox
98.5 F 57 17 112/67 95
09/02/24 12:00 09/02/24 12:10 09/02/24 12:00 09/02/24 12:00 09/02/24 12:00
09/01/24 09/02/24 09/03/24
06:59 06:59 06:59
Actual Weight 101.5 kg 101 kg
09/02/24 03:40
09/02/24 03:40
PT 18.3 Sec (11.4-14.6) H 09/01/24 10:57
INR 1.49 09/01/24 10:57
APTT 32.1 Sec (23.4-35.0) 09/01/24 10:57
Magnesium 2.4 mg/dl (1.6-2.3) H 09/02/24 03:40
Physical Exam
Constitutional: No acute distress and Comfortable
EENT: Anicteric and Moist mucous membranes
Cardiovascular: Rhythm & rate is regular, Pedal edema is absent and JVD pressure is normal
Respiratory: Respiratory effort normal, Lungs clear to auscul. and Wheeze Absent
GI: Soft, Non tender and Normal bowel sounds
Neuro/Psych: Alert, Oriented and AO x 3
Data Reviewed
-
Date of Service: September 02, 2024
Medical Decision Making: Reviewed Test Results
EKG: Tracing Personally Visualized and interpreted
Echo: Report Reviewed by me
Medical Tests (PFT, Pathology etc): Other (Temporary pacemaker was tested. Patient has junctional escape to 61 bpm)
Labs: Labs Reviewed by me
Old Records: Reviewed
Critical Care Time (in minutes): 34
[2024-09-02 14:00] LABS: Glucose - Point of Care 191 mg/dl (70-99)
[2024-09-02 15:28] LABS: Glucose - Point of Care 96 mg/dl (70-99)
[2024-09-02] MEDS: ROCEPHIN 2000 MG IV (16:05)
[2024-09-02] MEDS: STERILE WATER FOR INJECTION 20 ML IV (16:05)
--- NOTE | 2024-09-02 16:10 | PTCARENOTE ---
VS obtained, assessment stable. Patient remains DTV, denies urge or discomfort, no distention noted. Bladder scan performed for 154ml. PA Long updated, po intake encouraged. Patient assisted oob to chair, dinner ordered. Family to bedside for visit.
[2024-09-02] MEDS: FLUSH (NSS) 1 FLUSH IV ×2 (16:12→16:13)
[2024-09-02] MEDS: NOVOLOG FLEXPEN 87 UNITS SC (16:53)
[2024-09-02 17:02] LABS: Glucose - Point of Care 87 mg/dl (70-99)
[2024-09-02] MEDS: NOVOLIN R INSULIN INFUSION 100 IV (19:10)
[2024-09-02 19:12] LABS: Glucose - Point of Care 204 mg/dl (70-99)
[2024-09-02 19:59] LABS: Glucose - Point of Care 212 mg/dl (70-99)
--- NOTE | 2024-09-02 20:00 | PTCARENOTE ---
assumed care of pt from previous RN. pt A&Ox4, resting in chair at time of assessment. sinus bradycardia on tele-monitor. temp epicardial A/V wires plugged into pulse generator w/ backup settings AAI 40/10/0.4. POX 93% on RA. CTx2 (mediastinal x2)
to -20cm wall suction, draining serosanguineous drainage. pt DTV. all surgical sites stable, CDI. R IJ cordis w/ KVO. L midline intact. insulin infusing per glycemic protocol. see worklist for complete nursing assessment, interventions, VS, and I&Os.
[2024-09-02 21:12] LABS: Glucose - Point of Care 159 mg/dl (70-99)
--- NOTE | 2024-09-02 21:30 | PTCARENOTE ---
pt bladder scanned for 491ml. pt voided 50 ml. pt refused post void residual scan. pt stated, 'I will pee at some point tonight.' pt education provided.
--- NOTE | 2024-09-02 23:00 | PTCARENOTE ---
assessment remains unchanged. POX 85-87% on RA. pt placed on 3 L NC- POX 93% on 3 L O2. sinus di on tele-monitor. pt voided 225ml in urinal w/ a moderate amount of unmeasured urine on pad. pt refused a bed change. pt education provided regarding
skin breakdown.
[2024-09-02 23:19] LABS: Glucose - Point of Care 100 mg/dl (70-99)
[2024-09-03] VITALS (24 sets, daily range): BP systolic 114–152; BP diastolic 59–82; PULSE 55–56; BMI 32.8
[2024-09-03 01:09] LABS: Glucose - Point of Care 99 mg/dl (70-99)
--- NOTE | 2024-09-03 02:33 | W.PN.ANS.POP ---
Anesthesia Post Operative
- Anesthesia Post Op Note
Vital Signs Stable-See Nursing Note: Yes
Airway Patent: Yes
Adequate Pain Control: Yes
Change in Mental Status: No
Current Postoperative Nausea & Vomiting: No
Anesthesia Complications: No
General Anesthetic Recall: No
Unplanned Admission: No
Post Op Hydration Adequate: Yes
--- NOTE | 2024-09-03 03:00 | PTCARENOTE ---
no acute changes. VSS. POX 99% on 3 L NC. no c/o pain at this time. CT drainage WNL.
[2024-09-03 03:16] LABS: Glucose - Point of Care 103 mg/dl (70-99)
--- NOTE | 2024-09-03 04:18 | W.PN.CT ---
Today's Communication / Plan
-
Plan:
-No major issues overnight. Hemodynamically and neurologically intact
-Intrinsic rhythm is sinus bradycardia @ 52 bpm (appears to be baseline). No longer paced. Amiodarone and BB remain on hold
-Consider d/c chest tube output: 2meds 130/260
-Cont. current meds (ASA, holding Lopressor and Amiodarone, Crestor; will add Plavix)
-Diabetes education/management following (hgb A1C of 8.6)
-Acute postop urinary retention, resolved
-Acute postop hyponatremia, 134, K 5.1. Consider PO Lasix
-Tele phase today when off insulin gtt per protocol
-Will discuss timing of discontinuation of temporary A/V PW in light bradycardia
-Maintain cordis another day
-Encourage use of IS
-Wean off of O2 as tolerated
-OOB into chair/Ambulate
-F/U cultures
-Cont. Abx per ID (currently on Rocephin)
-Repeat echo tomorrow to asses MV/AV repair
Assessment / Plan
-
Assessment:
-S/p Standard sternotomy with aortic and bicaval cannulation/ Aortic valve evaluation with resection of vegetations, possible Lambl bodies?, And aortic valve repair by plication of the noncoronary cusp/ Radical mitral valve repair [32 mm band
angioplasty, resection of most of P3, primary closure of P3 onto P2, cleft closure P2 P3, commissural plasty at A3 P3 side]/Left atrial appendage exclusion [40 mm clip], by Dr. Chou, 09/01/24, pod#2
-Mitral valve endocarditis (+strep mitis/oralis from culture 08/11)
-Moderate - severe MR
-Mobile vegetations on the aortic valve leaflets, ventricular surface with mild aortic valve insufficiency
-Mild dilated Asc. Aorta (4.1 cm)
-Pulmonary htn
-LVEF 60%, postop 65% per intraop BRENDA
-HTN
-T2DM (hgb A1C 8.6)
-Class 1 obesity (BMI 32)
-HLD
-Bradycardia
-S/P Gastric bypass
-Acute postop blood loss/Anemia (stable without blood transfusion)
-Acute postop atelectasis
-Acute postop hypovolemia with subsequent hypervolemia
-Acuter postop urinary retention, resolved
-Acute postop hyponatremia, 134
Discussed patient care with: Cardiology, Nursing, Respiratory Therapy, Pharmacy and Care Team
Subjective
Procedure
S/p Standard sternotomy with aortic and bicaval cannulation/ Aortic valve evaluation with resection of vegetations, possible Lambl bodies?, And aortic valve repair by plication of the noncoronary cusp/ Radical mitral valve repair [32 mm band
angioplasty, resection of most of P3, primary closure of P3 onto P2, cleft closure P2 P3, commissural plasty at A3 P3 side]/Left atrial appendage exclusion [40 mm clip], by Dr. Chou, 09/01/24
-
Date of Service: September 03, 2024
Pt c/o mild incisional pain, otherwise feels well
Objective Data
-
PT 18.3 Sec (11.4-14.6) H 09/01/24 10:57
INR 1.49 09/01/24 10:57
APTT 32.1 Sec (23.4-35.0) 09/01/24 10:57
Vital Signs
Vital Signs
Temp Pulse Resp BP Pulse Ox
98.2 F 50 14 132/71 99
09/03/24 03:00 09/03/24 03:00 09/03/24 03:00 09/03/24 03:00 09/03/24 03:00
CT Intake/Output/Weight
09/02/24 09/02/24 09/03/24
06:59 18:59 06:59
Intake Total 445.2 / 602.7 842.0 / 956.5 114.5 / 956.5
Output Total 739 / 1766 120 / 454 334 / 454
Balance -293.8 / -1163.3 722.0 / 502.5 -219.5 / 502.5
SaO2: 97 (2L)
Physical Exam
-
General: Awake, Oriented and AOx3
Cardiovascular: Regular rate & rhythm, No Murmurs and No Gallop
Respiratory: Decreased Breath Sounds (at bases, otherwise clear)
Sternum: Stable
Incision: Clean, Dry, Intact and Dressing Intact
Extremities: No Edema
Data Reviewed
-
Lab Results: Results Reviewed
Medications: Active Meds Reviewed
Chest X-Ray: Report Reviewed and Image Reviewed
ECG: Report Reviewed and Image Reviewed
[2024-09-03 05:14] LABS: Glucose - Point of Care 103 mg/dl (70-99)
[2024-09-03 05:51] LABS: Hemoglobin 8.5 g/dL (13.0-18.0); Mean Corp Hgb Conc. 31.5 g/dL (33.0-37.0); Mean Corpuscular Hgb 27.9 pg (27.0-31.0); Mean Corpuscular Volume 88.5 fL (80.0-94.0); Mean Platelet Volume 11.1 fL (7.4-10.4); Platelet Count 267 10^3/uL (130-400); Red Blood Cell Count 3.05 10^6/uL (4.70-6.10); Red Cell Dist. Width 14.5 % (11.5-14.5); White Blood Cell Count 15.8 10^3/uL (4.8-10.8)
[2024-09-03 05:56] LABS: Blood Urea Nitrogen 23 mg/dl (9-20); Calcium 8.6 mg/dl (8.4-10.2); Carbon Dioxide 29 mmol/L (22-30); Chloride 100 mmol/L (98-107); Estimated Creatinine Clearance 90 ml/min; Glucose 101 mg/dl (70-99); Magnesium 2.4 mg/dl (1.6-2.3); Potassium 5.1 mmol/L (3.5-5.1); Sodium 134 mmol/L (135-145); eGFR > 60.00
[2024-09-03] MEDS: ROXICODONE 5 MG PO ×2 (06:34→19:29)
[2024-09-03] MEDS: TYLENOL 1000 MG PO ×3 (06:34→21:13)
[2024-09-03 07:05] LABS: Glucose - Point of Care 122 mg/dl (70-99)
[2024-09-03] MEDS: BACTROBAN 2% OINTMENT 1 APPLIC NASAL ×2 (07:35→19:30)
[2024-09-03] MEDS: LASIX 40 MG PO (07:35)
[2024-09-03] MEDS: PROTONIX 40 MG PO (07:35)
[2024-09-03] MEDS: CRESTOR 5 MG PO (07:35)
[2024-09-03] MEDS: LOW STRENGTH ASPIRIN 81 MG PO (07:36)
[2024-09-03] MEDS: VITAMIN C 500 MG PO (07:36)
[2024-09-03] MEDS: FEOSOL 325 MG PO (07:36)
[2024-09-03] MEDS: NOVOLOG FLEXPEN 4 UNITS SC ×2 (07:36→21:41)
[2024-09-03] MEDS: SENOKOT-S 1 TABLET PO (07:36)
[2024-09-03] MEDS: NEURONTIN 100 MG PO ×3 (07:36→21:13)
--- NOTE | 2024-09-03 07:53 | PTCARENOTE ---
Patient received from shift supervisor rn resting oob in chair, AAO x 3, recently medicated for pain with relief. Rhythm SB via cm, SaO2 @ 92% on RA, denies SOB. RIJ Cordis w/kvo infusing. Epicardial A+V wires set to back up rate 40bpm, no spikes noted.
Mediastinal chest tubes x 2 (Y-connected to one pleurevac), to -20cm suction w/no air leak noted. All procedural sites stable. Patient voiding spontaneously. present at bedside, both updated to plan of care for the day, in agreement. See work
list for full assessment and interventions performed.
--- NOTE | 2024-09-03 08:28 | W.PN.INTV ---
Today's Communication / Plan
Recommendations
Pain control
Goal BG 140�180; insulin drip being turned off today
Up OOB as tolerated
Encourage incentive spirometer use
Daily CXR
Goal SpO2 >90-94%
Removal of mediastinal chest tubes per CT surgery team -plan to remove today
Patient will be downgraded to CVICU�telemetry status. Once transferred then we will sign off. Please reconsult if there are any additional questions/concerns, or if patient's respiratory status deteriorates.
Assessment
-
Assessment: 69-year-old male with a past medical history of hypertension, DM type II, chronic cough and history of infective endocarditis who presents for elective aortic valve repair + mitral valve repair. Patient was recently hospitalized from
08/11 - 08/15/2024 and was diagnosed with infective endocarditis with Streptococcus mitis + oralis bacteremia with ALICIA with volume depletion. TTE on 08/11/2024 showed a hyperechoic mass attached to the anterior mitral leaflet. Subsequent BRENDA
showed a large 1.4 cm x 1.1 cm heterogeneous pedunculated vegetation on the P3 scallop of the mitral valve, with moderate MR, and preserved LVEF at 65 to 75%. Left heart catheterization on 08/15/2024 showed no significant CAD. He was discharged
home in stable condition and now presents for cardiothoracic intervention. On 09/01/2024, he underwent standard sternotomy and there was vegetations on the aortic valve which were resected and the aortic valve was repaired, and he also underwent a
radical mitral valve repair with left atrial appendage exclusion. There were no complications and he was transferred to the CVICU postoperatively and protohistorian services consulted for additional management/recommendations.
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
Impression:
#History of Streptococcus mitis/oralis bacteremia with endocarditis of the mitral valve with insufficiency and large mobile vegetation s/p radical mitral valve repair (POD #2)
#Aortic valve vegetations s/p resection with repair (POD #2)
#Left atrial appendage exclusion with 40 mm clip (POD #2)
#Acute on chronic anemia
#DM type II c/b hyperglycemia (HbA1c: 8.6 on 08/12/2024)
#History of Srinivas-en-Y gastric bypass
#Hypertension
Plan:
Patient was extubated on 12 to nasal cannula and is currently on room air breathing comfortably and saturating 95%
Maintain SpO2 >90-94%
prn nebulized bronchodilators
Encourage incentive spirometer 10x per hour for at least 4 hrs a day
Follow-up tissue cultures from the OR (NGTD)
Maintain MAP>65
Replete electrolytes with K>4, Mg>2
Monitor chest tube output (mediastinal x2)
Monitor hemoglobin
Monitor platelet count and coags
Transfuse blood products as needed to maintain Hb>7g/dL, plt>50k (given post-operative status)
CT surgery managing chest tubes - planned to be removed today
Monitor blood sugar to maintain euglycemia with goal BG 140-180
Insulin drip per protocol - plan to stop today
Aspiration precautions
DVT prophylaxis
Early nutrition
Early mobilization
Patient will be downgraded to CVICU�telemetry status. Once transferred then we will sign off. Thank you for allowing us to be involved in the care of this patient. Please reconsult if there are any additional questions/concerns, or if patient's
respiratory status deteriorates.
Total time spent today was 57 minutes for this encounter. Time includes reviewing laboratory test/imaging results, reviewing pertinent medical records, obtaining and reviewing medical history, performing an appropriate exam, ordering medications,
tests and procedures. Time also includes documentation of this encounter, coordinating patient care and communicating with other healthcare professionals. Total time does not include separately billed tests performed on this date of service.
Subjective Dataa
Subjective Data
Date of Service:
Date of Service: September 03, 2024
Chief Complaint: Orthotist/Prosthetist Follow Up
Subjective:
Seen and evaluated today at bedside. Resting in bed with at bedside. Patient is on room air, saturating 94%. Heart rate 55 and BP 114/75. Currently on insulin drip at 6 units/hr. Mediastinal chest tubes x [address]. He denies RODRIGUEZ, SOB,
abdominal pain, fevers chills.
Review of Systems
General: Other (Negative unless mentioned above)
Objective Data
Data Reviewed
Vital Signs / I&O / Oxygen:
Vital Signs
Temp Pulse Resp BP Pulse Ox
98.3 F 55 15 127/73 92
09/03/24 07:06 09/03/24 09:15 09/03/24 09:00 09/03/24 09:15 09/03/24 07:46
Intake and Output
09/02/24 09/03/24 09/04/24
06:59 06:59 06:59
Intake Total 602.7 / 602.7 979.1 / 991.7 191.2 / 191.2
Output Total 1766 / 1766 764 / 764
Balance -1163.3 / -1163.3 215.1 / 227.7 191.2 / 191.2
SaO2 92
Nasal Cannula flow liters per 2
minute
Physical Exam
General: Respiratory Distress (negative), Chills (negative) and Sweats (negative)
HEENT: Normocephalic, Anicteric and Other (R-IJ cordis in place)
Cardiovascular: S1-S2, Murmur (negative) and Peripheral Edema (Trace LE edema bilaterally)
Respiratory: Wheeze (negative), Crackles (Bibasilar), Rhonchi (negative), Non-Labored Respirations, Stridor (negative) and Chest Tube (Mediastinal chest tubes x 2)
GI: Soft, Distended (Abdominal obesity), Non Tender and Normal Bowel Sounds
Neurology: AO x 3 and Tremors (negative)
Skin: Warm, Dry, Cyanosis (negative) and Jaundice (negative)
Labs/Micro/Reports
Lab Data
09/03/24 05:12
09/03/24 05:12
Microbiology
09/01/24 08:20 Heart Anaerobic Culture - Preliminary
Culture pending. Anaerobic cultures are examined after 3
days incubation. Additional information to follow.
09/01/24 08:20 Valve Tissue Culture - Preliminary
No Growth After 18-24 Hours
09/01/24 08:20 Valve Gram Stain - Preliminary
09/01/24 08:20 Heart Anaerobic Culture - Preliminary
Culture pending. Anaerobic cultures are examined after 3
days incubation. Additional information to follow.
09/01/24 08:20 Valve Tissue Culture - Preliminary
No Growth After 18-24 Hours
09/01/24 08:20 Valve Gram Stain - Preliminary
09/01/24 08:20 Valve Fungal Culture - Preliminary
09/01/24 08:20 Valve Fungal Culture - Preliminary
[2024-09-03 09:00] LABS: Glucose - Point of Care 234 mg/dl (70-99)
[2024-09-03] MEDS: NSS 500 IV (09:00)
[2024-09-03] MEDS: LANTUS 0.15 UNITS SC (10:05)
[2024-09-03 10:08] LABS: Glucose - Point of Care 163 mg/dl (70-99)
--- NOTE | 2024-09-03 10:39 | PTCARENOTE ---
Epicardial pacing wires d/c'd by MARIE Grayson w/out incident. Bedrest maintained x 1 hour, VS obtained per protocol. After one hour, mediastinal chest tubes d/c'd. Patient tolerated well. VS stable. Patient and at bedside, educated to procedure.
[2024-09-03 11:13] LABS: Glucose - Point of Care 117 mg/dl (70-99)
[2024-09-03] MEDS: NOVOLOG FLEXPEN-MODERATE RESISTANCE SC (11:21)
--- NOTE | 2024-09-03 11:23 | PTCARENOTE ---
VS obtained, assessment stable. Assisted oob, ambulated 2nd floor loop. Settled to chair, lunch ordered. Family at bedside.
--- NOTE | 2024-09-03 13:06 | W.PN.CD ---
Today's Communication / Plan
-
- IS/OOB and ambulation
- No need for PPM
Impression / Plan
-
IMPRESSION/PLAN: 69M with HTN and HLD who presented last month with intermittent fevers, chills & weight loss over the last 2 months who was diagnosed with endocarditis. He presents for valve repair.
Outpatient button station worker: Dr. Smith
Aortic valve repair and radical mitral valve repair on 09/01/[address] Chou
-Aortic valve with resection of vegetation (possible Lambl bodies?) and aortic valve repair by plication of the NCC
-Radical MV repair 32 mm band angioplasty, resection of most of P3, primary closure of P3 and P2, cleft closure P2 P3, commissural plasty at A3 P3 side
-Post MV gradient 1 mmHg, pre and post aortic valve mean gradient 10-12 mmHg
-Off pressors.
-EKG with sinus rhythm, IRBBB (new), prolonged QT, EKG in a.m. no need for PPM at this time.
Postoperative bradycardia,
-Now adeuate rhythm noted. Not paced anymore.
-Continue to monitor -no indication for pacemaker just yet.
Hypertension, follow in the postoperative setting
Strep mitis endocarditis, on ceftriaxone, culture sent, ID following
NIDDM, Hgba1c 8.6%
Prior Srinivas-en-Y bypass
SUBJECTIVE:
Alert and awake. Doing well. Asymptomatic. Ambulating.
Physical Exam
Vital Signs/Labs
Vital Signs
Temp Pulse Resp BP Pulse Ox
98.5 F 57 16 152/77 97
09/03/24 11:21 09/03/24 11:21 09/03/24 11:21 09/03/24 11:08 09/03/24 11:21
09/02/24 09/03/24 09/04/24
06:59 06:59 06:59
Actual Weight 101 kg 103.8 kg
12/08/24 05:12
09/03/24 05:12
PT 18.3 Sec (11.4-14.6) H 09/01/24 10:57
INR 1.49 09/01/24 10:57
APTT 32.1 Sec (23.4-35.0) 09/01/24 10:57
Magnesium 2.4 mg/dl (1.6-2.3) H 09/03/24 05:12
Physical Exam
Constitutional: No acute distress and Comfortable
EENT: Anicteric and Moist mucous membranes
Cardiovascular: Rhythm & rate is regular, Pedal edema is absent and JVD pressure is normal
Respiratory: Respiratory effort normal, Lungs clear to auscul. and Wheeze Absent
GI: Soft, Non tender and Normal bowel sounds
Neuro/Psych: Alert, Oriented and AO x 3
Other: Skin
Data Reviewed
-
Date of Service: September 03, 2024
Medical Decision Making: Reviewed Test Results, Independent Historian Assessment, Test Interpretation and Review of Case with other Provider
EKG: Tracing Personally Visualized and interpreted
Echo: Report Reviewed by me
Labs: Labs Reviewed by me
Old Records: Reviewed
[2024-09-03] MEDS: TYLENOL PO (14:38)
[2024-09-03] MEDS: FLUSH (NSS) 1 FLUSH IV ×2 (16:15→16:16)
[2024-09-03] MEDS: STERILE WATER FOR INJECTION 20 ML IV (16:15)
[2024-09-03] MEDS: ROCEPHIN 2000 MG IV (16:16)
--- NOTE | 2024-09-03 16:19 | PTCARENOTE ---
VS obtained, assessment stable. Patient resting bedside, perusing menu for dinner. States pain controlled.
[2024-09-03 17:01] LABS: Glucose - Point of Care 179 mg/dl (70-99)
[2024-09-03] MEDS: NOVOLOG FLEXPEN-MODERATE RESISTANCE 1 UNITS SC (17:03)
[2024-09-03] MEDS: SENOKOT-S PO (19:30)
--- NOTE | 2024-09-03 20:00 | PTCARENOTE ---
Received patient from day shift RN. AOx3, flat affect, cooperative. OOB to chair, c/o moderate sternal pain. Sinus di on the monitor, rates 50's, BP stable, trace LE edema, weakly palpable pedal pulses, normal radial, heart sounds audible. On RA,
satting 95-98%, IS encouraged. Abdomen SNT, round, nighttime glucose check 212, given one time insulin dosage per CVPA. Patient using urinal PRN. All surgical sites intact. LUE midline in place, RIJ cordis intact infusing KVO. Patient placed back
into bed, call nixon within reach. See worklist for nursing interventions.
[2024-09-03 21:16] LABS: Glucose - Point of Care 212 mg/dl (70-99)
[2024-09-04] VITALS (31 sets, daily range): BP systolic 101–142; BP diastolic 68–95; BMI 32.1
--- NOTE | 2024-09-04 00:48 | PTCARENOTE ---
Patient sleeping in bed, awake to use urinal and for VS. Assessment unchanged.
HR 49 around 0045, patient sleeping soundly - CVPA aware, continue to monitor.
--- NOTE | 2024-09-04 01:27 | PTCARENOTE ---
Patient converted to afib at 0123 rate 60-70's. CVPA aware, continue to monitor patient and obtain EKG in AM.
--- NOTE | 2024-09-04 03:49 | W.PN.CT ---
Today's Communication / Plan
-
Plan:
-No major issues overnight. Hemodynamically and neurologically intact
-Baseline HR is in the 50's. Came out OR with HR 30-40's and required A-pacing @ 80 bpm. Amiodarone and BB has been on hold postop
-Pt unfortunately went into rate controlled a-fib 50-90's overnight @ 0130. Temporary PW d/c'd yesterday 09/03
-Gave a trial of 2.5 mg IV Lopressor. Attempts to convert to NSR but now having occasional 10 sec pauses
-EP to re-evaluate for PPM placement. Will make NPO
-Cont. current meds (ASA, Plavix, Crestor; holding Lopressor and Amiodarone)
-Diabetes education/management following (hgb A1C of 8.6)
-Acute postop urinary retention, resolved
-Acute postop hyponatremia has resolved
-Maintain cordis another day
-Encourage use of IS
-OOB into chair/Ambulate
-F/U cultures
-Cont. Abx per ID (currently on Rocephin)
-Repeat echo today vs tomorrow to asses MV/AV repair
-Home in 1-2 days
Assessment / Plan
-
Assessment:
-S/p Standard sternotomy with aortic and bicaval cannulation/ Aortic valve evaluation with resection of vegetations, possible Lambl bodies?, And aortic valve repair by plication of the noncoronary cusp/ Radical mitral valve repair [32 mm band
angioplasty, resection of most of P3, primary closure of P3 onto P2, cleft closure P2 P3, commissural plasty at A3 P3 side]/Left atrial appendage exclusion [40 mm clip], by Dr. Chou, 09/01/24, pod#2
-Mitral valve endocarditis (+strep mitis/oralis from culture 08/11)
-Moderate - severe MR
-Mobile vegetations on the aortic valve leaflets, ventricular surface with mild aortic valve insufficiency
-Mild dilated Asc. Aorta (4.1 cm)
-Pulmonary htn
-LVEF 60%, postop 65% per intraop BRENDA
-HTN
-T2DM (hgb A1C 8.6)
-Class 1 obesity (BMI 32)
-HLD
-Bradycardia
-S/P Gastric bypass
-Acute postop blood loss/Anemia (stable without blood transfusion)
-Acute postop atelectasis
-Acute postop hypovolemia with subsequent hypervolemia
-Acuter postop urinary retention, resolved
-Acute postop hyponatremia, 134
Discussed patient care with: Cardiology, Nursing, Respiratory Therapy, Pharmacy and Care Team
Subjective
Procedure
S/p Standard sternotomy with aortic and bicaval cannulation/ Aortic valve evaluation with resection of vegetations, possible Lambl bodies?, And aortic valve repair by plication of the noncoronary cusp/ Radical mitral valve repair [32 mm band
angioplasty, resection of most of P3, primary closure of P3 onto P2, cleft closure P2 P3, commissural plasty at A3 P3 side]/Left atrial appendage exclusion [40 mm clip], by Dr. Chou, 09/01/24
-
Date of Service: September 04, 2024
Pt c/o mild incisional pain, otherwise feels well. Ambulating hallway without difficulty
Objective Data
-
PT 18.3 Sec (11.4-14.6) H 09/01/24 10:57
INR 1.49 09/01/24 10:57
APTT 32.1 Sec (23.4-35.0) 09/01/24 10:57
Vital Signs
Vital Signs
Temp Pulse Resp BP Pulse Ox
97.9 F 52 18 135/81 96
09/04/24 00:14 09/04/24 00:13 09/04/24 00:14 09/04/24 00:13 09/04/24 00:14
CT Intake/Output/Weight
09/03/24 09/03/24 09/04/24
06:59 18:59 06:59
Intake Total 137.1 / 991.7 685.2 / 835.2 150 / 835.2
Output Total 644 / 764 1200 / 1675 475 / 1675
Balance -506.9 / 227.7 -514.8 / -839.8 -325 / -839.8
SaO2: 99 (2L)
Physical Exam
-
General: Awake, Oriented and AOx3
Cardiovascular: Regular rate & rhythm, No Murmurs, No Rub and No Gallop
Respiratory: Decreased Breath Sounds (at bases, otherwise clear)
Sternum: Stable
Incision: Clean, Dry, Intact and Dressing Intact
Extremities: Edema +1
right LE edema
Data Reviewed
-
Lab Results: Results Reviewed
Medications: Active Meds Reviewed
Chest X-Ray: Report Reviewed and Image Reviewed
ECG: Report Reviewed and Image Reviewed
[2024-09-04] MEDS: LOPRESSOR 2.5 MG IV (04:05)
--- NOTE | 2024-09-04 04:11 | PTCARENOTE ---
Afib persists. Patient denies symptoms, stating he 'feels great.' Metoprolol 2.5 mg IV given and patient placed on 2LNC per provider request. VS otherwise stable
--- NOTE | 2024-09-04 04:33 | PTCARENOTE ---
Patient with pauses on tele. Initial at 0411 - continued intermittently. CVPA aware. HR 60-70's.
[2024-09-04 05:40] LABS: Hematocrit 30.7 % (39.0-52.0); Hemoglobin 9.3 g/dL (13.0-18.0); Mean Corp Hgb Conc. 30.3 g/dL (33.0-37.0); Mean Platelet Volume 10.8 fL (7.4-10.4); Platelet Count 326 10^3/uL (130-400); Red Blood Cell Count 3.45 10^6/uL (4.70-6.10); Red Cell Dist. Width 14.5 % (11.5-14.5); White Blood Cell Count 14.6 10^3/uL (4.8-10.8)
[2024-09-04 05:48] LABS: Blood Urea Nitrogen 17 mg/dl (9-20); Calcium 8.7 mg/dl (8.4-10.2); Carbon Dioxide 32 mmol/L (22-30); Chloride 100 mmol/L (98-107); Estimated Creatinine Clearance 102 ml/min; Glucose 147 mg/dl (70-99); Magnesium 2.3 mg/dl (1.6-2.3); Potassium 4.6 mmol/L (3.5-5.1); Sodium 135 mmol/L (135-145); eGFR > 60.00
--- NOTE | 2024-09-04 06:11 | PTCARENOTE ---
Patient persists in afib, denies any symptoms, wiped with CHG/gown changed, left resting in bed per CVPA. Made NPO, explained to patient NPO status, patient indicated understanding. EKG performed showed afib with prolonged QT, no dizziness,
lightheadedness, palpitations, patient in good spirits, rates 60-80's at the time of this note. 2LNC maintained, call nixon within reach, assessment of needs ongoing.
[2024-09-04] MEDS: TYLENOL PO (06:21)
[2024-09-04 07:45] LABS: Glucose - Point of Care 182 mg/dl (70-99)
--- NOTE | 2024-09-04 08:04 | PN.DE.MGMTRT ---
Insulin Management
- -
09/04/2024: Diabetes Management F/U:
69 year male previously admitted with 3-month hx of fever and chills and 31 pound weight loss. 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
Patient electively admitted 09/01/2024 for MVR and left atrial appendage clip. PMH: HTN, HLD, Obesity s/p gastric bypass (Srinivas-en-Y 15 yrs ago) and T2DM, was taking Metformin 1000mg daily in AM and 500mg in PM and Rybelsus 14mg daily. A1C 8.6% on
08/12/24, Cr 0.8, eGFR >60.
Patient is awake, alert, resting in bed, offers no complaints, at bedside, able to discuss diabetes mgt.
POD #3 S/P Aortic valve resection of vegetations, possible Lambl bodies and aortic valve repair and radical mitral valve repair.
Transitioned off Glycemic protocol on 09/03 to Lantus 15 units and corrective insulin only.
09/03 premeal glucose 117 to 234, fasting 145(V) and 182 POC this AM.
Pt is NPO for permanent pacer placement this morning.
Will start Farxiga 10 mg daily and resume Metformin at increased PM dose to make it 1000 mg BID, both to be administered after procedure.
Cont Lantus 15 units @ HS and corrective insulin with meals
Explained to pt and that he will need long acting insulin at discharge given uncontrolled diabetes with an A1C of 8.4%, both were agreeable
Diabetes History
- -
Type of Diabetes: 2 requiring insulin
Pre-Admission Diabetes Regimen
09/04/24
04:59
Creatinine 0.8
Insulin Pump Settings
IP Diabetes Regimen
09/03/24 09/03/24 09/03/24
08:59 10:07 11:11
Glucose
POC Glucose 234 H 163 H 117 H
09/03/24 09/03/24 09/04/24
16:59 21:15 04:59
Glucose 147 H
POC Glucose 179 H 212 H
09/04/24
07:43
Glucose
POC Glucose 182 H
Meal type: Dinner
Meal type: Lunch
Amount consumed: 90%
Amount consumed: 80%
Patient Education
--- NOTE | 2024-09-04 08:30 | PTCARENOTE ---
Received from rn night RN; AAOx3, responds to RN spontaneously and follows commands; Shallow respirations; Lungs diminished at bases; SpO2 95-100% on 2L NC; IS 1500 ml; Afib with occasional SB, 1st AVB, and prolonged QT on monitor; VSS; Trace B/L
LE edema; +2 radial and DP pulses; NPO for procedure; Surgical sites intact; See nursing documentation for further details.
[2024-09-04] MEDS: TYLENOL 1000 MG PO ×3 (08:37→20:31)
[2024-09-04] MEDS: NOVOLOG FLEXPEN-MODERATE RESISTANCE 1 UNITS SC ×2 (09:10→13:44)
[2024-09-04] MEDS: NEURONTIN 100 MG PO ×3 (09:12→20:31)
[2024-09-04] MEDS: CRESTOR 5 MG PO (09:12)
[2024-09-04] MEDS: FEOSOL 325 MG PO (09:12)
[2024-09-04] MEDS: LANTUS 0.15 UNITS SC (09:12)
[2024-09-04] MEDS: BACTROBAN 2% OINTMENT 1 APPLIC NASAL ×2 (09:12→20:08)
[2024-09-04] MEDS: SENOKOT-S PO ×2 (09:13→20:39)
[2024-09-04] MEDS: PROTONIX 40 MG PO (09:13)
[2024-09-04] MEDS: LOW STRENGTH ASPIRIN 81 MG PO (09:13)
[2024-09-04] MEDS: VITAMIN C 500 MG PO (09:13)
--- NOTE | 2024-09-04 10:51 | W.PN.CD ---
Today's Communication / Plan
-
- PPM today
- Resume Amio and Metoprolol post PPM
Impression / Plan
-
IMPRESSION/PLAN: 69M with HTN and HLD who presented last month with intermittent fevers, chills & weight loss over the last 2 months who was diagnosed with endocarditis. He presents for valve repair.
Outpatient brush fabrication supervisor: Dr. Smith
Aortic valve repair and radical mitral valve repair on 09/01/[address] Chou
-Aortic valve with resection of vegetation (possible Lambl bodies?) and aortic valve repair by plication of the NCC
-Radical MV repair 32 mm band angioplasty, resection of most of P3, primary closure of P3 and P2, cleft closure P2 P3, commissural plasty at A3 P3 side
-Post MV gradient 1 mmHg, pre and post aortic valve mean gradient 10-12 mmHg
-Off pressors.
-EKG with sinus rhythm, IRBBB (new), prolonged QT, EKG in a.m. no need for PPM at this time.
Bradycardia,
-Had 10 second pause overnight - sympotmatic.
-Has paroxysms of AF and has long conversion pauses
-The junctional escape is not relaible in this conversion pauses.
-Discussed the need for PPM with patient and the family. Dr. Chou is in agreement for proceedign with PPM
-PPM today
Paroxysmal AF
-Post op AF with hx of PAF
-s/p KAREN clipped - BRENDA intraop showed no residual KAREN
-Post op condition with Amiodarone and ASA on board.
-On Metoprolol - held with pause. Can restart post PPM
Hypertension, follow in the postoperative setting
Strep mitis endocarditis, on ceftriaxone, culture sent, ID following
NIDDM, Hgba1c 8.6%
Prior Srinivas-en-Y bypass
SUBJECTIVE:
Alert and awake. Doing well. Asymptomatic. Ambulating. at rest
Physical Exam
Vital Signs/Labs
Vital Signs
Temp Pulse Resp BP Pulse Ox
98.9 F 34 16 104/69 95
09/04/24 08:00 09/04/24 08:40 09/04/24 08:00 09/04/24 08:40 09/04/24 08:30
09/03/24 09/04/24 09/05/24
06:59 06:59 06:59
Actual Weight 103.8 kg 101.4 kg
09/04/24 04:59
09/04/24 04:59
PT 18.3 Sec (11.4-14.6) H 09/01/24 10:57
INR 1.49 09/01/24 10:57
APTT 32.1 Sec (23.4-35.0) 09/01/24 10:57
Magnesium 2.3 mg/dl (1.6-2.3) 09/04/24 04:59
Physical Exam
Constitutional: No acute distress and Comfortable
Cardiovascular: JVD pressure is normal, Rhythm/rate is irregular and Pedal edema present
Respiratory: Respiratory effort normal, Lungs clear to auscul. and Wheeze Absent
GI: Soft, Non tender and Normal bowel sounds
Neuro/Psych: Alert, Oriented and AO x 3
Data Reviewed
-
Date of Service: September 04, 2024
Medical Decision Making: Reviewed Test Results, Independent Historian Assessment, Test Interpretation and Review of Case with other Provider
EKG: Tracing Personally Visualized and interpreted
Echo: Report Reviewed by me
X-Ray/CT/US/MRI/NUC/PET: Image Personally Visualized and interpreted
Labs: Labs Reviewed by me
Old Records: Reviewed
Critical Care Time (in minutes): 35
[2024-09-04] MEDS: NSS IV (11:01)
--- NOTE | 2024-09-04 11:11 | W.PN.ID1 ---
Addendum entered and electronically signed by Lay Santos MD 09/04/24 16:05:
I saw and evaluated the patient. I reviewed the resident�s note and agree with findings and plan as documented in the resident�s note.
# Strep mitis/oralis MV infective endocarditis dx'd 08/11/24
09/01/24 s/p radical MV repair; finding of mobile vegetations on AV s/p AV repair
- Valve cultures negative to date
- Continue ceftriaxone 2g IV q24 (d23 ) through 09/09/24.
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
# Leukocytosis post-op trending down
# Sinus bradycardia s/p PPM placement 09/04/24.
Original Note:
Date of Service
Date of Service: September 04, 2024
Today's Communication
.
Assessment / Plan
Assessment/Plan
#endocarditis of the mitral valve with insufficiency and large mobile vegetation, aortic valve vegetations.
s/p mitral and aortic valve repair 09/01/2024
currently intubated and sedated post-op
#Hx of Strep mitis/Oralis Bacteremia
#Poor dentition - source of bacteremia/IE
-Continue ceftriaxone 2g IVq24h through 09/09/24 as planned.
-OR Valve Cultures-NO growth in 48hours.
-Recommend antibiotic prophylaxis for dental procedures
Conditions Present Prior to Admission
T2DM
Dyslipidemia
Essential HTN
Hx Gastric Bypass
Chief Complaint
-: Bacteremia
Subjective / Review of Systems
Review of Systems: No Fever and No Chills
Vital Signs / Physical Exam
Vital Signs
Vital Signs
Temp Pulse Resp BP Pulse Ox
98.9 F 34 16 104/69 95
09/04/24 08:00 09/04/24 08:40 09/04/24 08:00 09/04/24 08:40 09/04/24 08:30
Physical Exam
Constitutional: No Acute Distress and Comfortable
Eyes: No Conjunctival Hemorrhage
Cardiovascular: Irregular Rate and S1/S2
Gastrointestinal: Soft, Non Tender and Non Distended
Extremities: Negative Edema
Neurological: AO x 3
Objective Data
Lab Data
Lab Results
09/04/24 04:59
09/04/24 04:59
PT 18.3 Sec (11.4-14.6) H 09/01/24 10:57
INR 1.49 09/01/24 10:57
APTT 32.1 Sec (23.4-35.0) 09/01/24 10:57
Estimated Creat Clear 102 ml/min 09/04/24 04:59
Most recent labs reviewed.
Micro Results:
09/01/24 08:20 Anaerobic Culture - Preliminary
Heart Culture pending. Anaerobic cultures are examined after 3
days incubation. Additional information to follow.
09/01/24 08:20 Tissue Culture - Preliminary
Valve No Growth After 48 Hours
Gram Stain - Preliminary
09/01/24 08:20 Tissue Culture - Preliminary
Valve No Growth After 48 Hours
Gram Stain - Preliminary
09/01/24 08:20 Anaerobic Culture - Preliminary
Heart Culture pending. Anaerobic cultures are examined after 3
days incubation. Additional information to follow.
09/01/24 08:20 Fungal Culture - Preliminary
Valve
09/01/24 08:20 Fungal Culture - Preliminary
Valve
09/01/24: BRENDA; Overall LVEF is approximately 60% with no RWMA.
Moderate concentric left ventricular hypertrophy.
Moderately dilated left atrium.
Moderately dilated right atrium.
Mild tricuspid regurgitation.
Severe pulmonary hypertension.
Trace pulmonic insufficiency.
Mild aortic insufficiency.
AV is tricuspid with calcified and mildly restricted cusps.
There is a mass attached to the ventricular surface of the AV.
FRANKIE calculates to 3.2 cm2 using the continuity equation.
Moderate to severe mitral regurgitation.
MR etiology is from a P3 mass and destruction of the P3 scallop.
The MR jet courses from the P3 scallop to the anterolateral commissure.
Mid ascending aorta is dilated measuring 4.1 cm at the level of the RPA.
Mild sessile atheroma seen in the descending aorta and distal arch.
[2024-09-04 11:15] LABS: Glucose - Point of Care 152 mg/dl (70-99)
--- NOTE | 2024-09-04 11:23 | PTCARENOTE ---
Report given to Maru OBRIEN; LAKSHMI bath wipes completed by RN; Patient voided in urinal prior to leaving unit; Disconnected from KVO in RIJ Cordis; Patient's with patient to stucco laborer
--- NOTE | 2024-09-04 13:15 | ITS.CL.PACE ---
Product Owner - Pacemaker Implant
Pacemaker Implant
Procedure Report:
Dual Chamber Pacemaker Placement:
Mr. Saeed is a very pleasant 69 yrs old gentleman with endocarditis s/p aortic and karl valve repair has noted to have bradycardia and gone into paroxysmal atrial fibrillation and is noted to have over 10 seconds of conversion pauses. He is
recommended for PPM placement.�
Indications: Sick sinus syndrome with symptomatic bradycardia
Date of the Procedure: 09/04/2024
Pre-Operative Diagnosis: Sick sinus syndrome with symptomatic bradycardia
Post-Operative Diagnosis: Sick sinus syndrome with symptomatic bradycardia
Procedure Performed: DUAL CHAMBER PACEMAKER IMPLANTATION
Performing Physician:
Bernard Mclain MD
Anesthesia:
See anesthesia records
Pre-operative antibiotics:
Ancef
Detailed Description of the Procedure:
The patient was identified using hospital identification and informed consent obtained for the procedure. The risks were explained including, but not limited to: Bleeding, infection, arrhythmia, stroke, vascular/cardiac/lung puncture, surgery,
pacemaker dependency/device malfunction. All questions were answered.
The patient was brought to the electrophysiology laboratory in stable condition in fasting state. Continuous electrocardiographic and hemodynamic monitoring was initiated. The initial rhythm was sinus bradycardia.
A surgical pause and time out was performed immediately prior to the procedure with review of her medical history, recent labs, allergies and medications with site of procedure identified and consent noted in the chart. Antibiotics pre operatively
given. All team members concurred.
The procedure site was meticulously prepared with surgical scrub and allowed to dry with no pooling. Sterile draping was applied to cover the procedure site. The image intensifier was draped with sterile bag and positioned over the patient.
The left infraclavicular region was prepped and draped in the usual sterile fashion. Local anesthesia was administered subcutaneously using 1% lidocaine / Bupivacaine. The left cephalic vein cutdown was attempted. There was a small cephalic noted,
not able to advance any sheaths.
Following infiltration with local anesthetic, the axillary vein was accessed using the fluoroscopic guidance using the micro-puncture apparatus. The vascular sheaths were introduced for lead access. The leads were advanced into the right ventricle
and the right atrium.
The right ventricular lead was secured in position with an active fixation technique at the apical septal location.
The atrial lead was deployed to right atrial appendage and anchored with active fixation.
The atrial lead dislodged during the case and was redeployed to the lateral RAA location.
A cardioversion was done with 200 J of shock that was able to convert patient to sinus rhythm. The atrial lead was paced after cardioversion. Patient remained in sinus for less than a minute and went back into atrial fibrillation.
Later another attempt of cardioversion was done that converted patient to sinus but was again degenerated into AF.
There was excellent sensing, pacing, and impedance from the leads, with no diaphragmatic stimulation at 10 V output.�Bovie cautery, antibiotics, and fluoroscopy were used.
The sheaths were withdrawn, and the thresholds remained acceptable. The leads were secured in position at the venous entry site with [id number]-Tjzyfync. A pocket was fashioned contiguous to the incision.
A pursestring suture was a deployed around the entry of the leads to secure the bleeding.
The electrode terminals were connected to the pulse generator, which was placed into the pocket. The wound was irrigated thoroughly with antibiotic solution. The pacemaker was secured to the underlying fascia with 0-1-Rilxmepc suture.
The wound was closed in 3 layers using 2-0 V Loc then 2 layers of 4-0 V loc sutures to the dermis. Steri-Strips and Aquacel applied to the wound.
Procedure End:
The procedure was tolerated well.
Estimated Blood loss:
5 cc
Specimens Removed:
No cultures and no specimens were obtained. No intraoperative pathology was identified.
Fluoro time:
2.6 min / 11.1mGy
Urine output:
None
Packs / Drains/ Tubes:
None
Instrument / Sponge Count Correct:
Yes
Complications of the Procedure:
None
Condition of Patient at Time of Transfer:
Hemodynamically stable with no neurological or vascular compromise.
Device information:�
Generator: ChargeBee; Model: W1DR01; Serial # [id number]�
Atrial Lead: Medtronic; Model: 5076-52; Serial # [id number]�
Measured data in the right atrium was sensing of 1.1mV, impedance of 399 ohms and threshold not tested due to AF.
RV Lead: Medtronic; Model: 5076-58; Serial # [id number]
Measured data in the RV lead was sensing of 5.5mV, impedance of 475 ohms and threshold of 0.75 V at 0.4ms�
Keith parameter settings were AAIR <=>DDDR 60-130 bpm. �
����������� Mode Switch: On
����������� Paced AV interval: 180ms
����������� Sensed AV interval: 150 ms.
����������� Rate Adaptive A-V Interval: Off
Output� parameters:
����������������������� Amplitude (V)������������� Pulse Width (ms)������� Sensitivity (mV)
����������� RA: ����� 3.5 ����������������� ����������� 0.4������������������ ����������� 0.3
����������� RV:������ 3.5������������������ ����������� 0.4������������������ ����������� 0.9
Summary:
Successful implantation of MRI compatible dual chamber Medtronic pacemaker
Results/Recommendations:
-Please follow up CXR�
1. Please provide patient with adequate pain control�
Instructions to be given to patient:�
- Please follow up with [facility] at [address] [place] [address] ([phone]) to get your wound checked within 14 days of your discharge.
- Do not wet incision site until after it is evaluated at cardiology clinic. No showers until then. Sponge baths are OK.�
- No swimming until cleared by the cardiology clinic.
- Do not lift left elbow above shoulder, particularly with sudden jerking movements, for 1 month�
- Do not lift anything weighing more than 10 pounds with the left arm for 1 month�
- If you notice any fevers, shortness of breath, lightheadedness, chest pain, or worsening swelling in the wound site, please contact the arrhythmia clinic, contact your environmental health specialist, or present to the hospital for evaluation.�
Bernard Mclain MD
Electrophysiology
[2024-09-04] MEDS: FARXIGA 10 MG PO (13:43)
[2024-09-04] MEDS: GLUCOPHAGE 1000 MG PO ×2 (13:43→16:51)
[2024-09-04 13:44] LABS: Glucose - Point of Care 152 mg/dl (70-99)
--- NOTE | 2024-09-04 15:09 | CM ---
Chart reviewed. Patient is independent of ADLS, lives with his who is a nurse in a 1 [employer], 1 [employer], 0 DME. Plan is for the patient to return home with CT Transitional RN. CM to follow
[2024-09-04] MEDS: STERILE WATER FOR INJECTION 20 ML IV (15:14)
[2024-09-04] MEDS: ROCEPHIN 2000 MG IV (15:14)
[2024-09-04] MEDS: FLUSH (NSS) 1 FLUSH IV ×2 (15:14→16:13)
--- NOTE | 2024-09-04 15:32 | PTCARENOTE ---
Patient received from cathead worker from PPM procedure at 1315; Dual chamber pacemaker settings DDDR 60-130; Left chest wall Aquacell dressing CDI; Left arm in immobilizer; +2 left radial pulse; CXR done at bedside; VSS; Patient able to walk in hallways
without difficulty following bedrest restriction for an hour.
[2024-09-04 16:49] LABS: Glucose - Point of Care 209 mg/dl (70-99)
[2024-09-04] MEDS: NOVOLOG FLEXPEN-MODERATE RESISTANCE 3 UNITS SC (16:51)
[2024-09-04 19:16] LABS: Hepatitis C Antibody Negative (Negative)
--- NOTE | 2024-09-04 20:00 | PTCARENOTE ---
Addendum entered by Jelena Hernandez RN 09/05/24 00:09:
pt has a L midline, not PICC
Original Note:
assumed care of pt from previous RN. pt A&Ox4, resting in bed at time of assessment. Irregular rhythm on tele-monitor. occasional A/V pacing w/ PPM. POX 95% on RA. abd s/n, round, obese. +BS. voiding clear, yellow urine in urinal. all surgical sites
stable, CDI. R IJ cordis w/ KVO. L PICC. see worklist for complete nursing assessment, interventions, VS, and I&Os.
[2024-09-04] MEDS: LOPRESSOR 12.5 MG PO (20:08)
[2024-09-04] MEDS: CORDARONE 103 MG IV (20:08)
[2024-09-04] MEDS: PACERONE 200 MG PO (20:31)
[2024-09-04 20:42] LABS: Glucose - Point of Care 148 mg/dl (70-99)
--- NOTE | 2024-09-05 | PTCARENOTE ---
assessment remains unchanged. VSS. 100% A-paced w/ PPM. POX 94% on RA. no c/o pain at this time.
[2024-09-05 03:43] VITALS: BP 140/81
[2024-09-05 04:00] LABS: Hemoglobin 9.6 g/dL (13.0-18.0); Mean Corpuscular Hgb 27.6 pg (27.0-31.0); Mean Corpuscular Volume 89.1 fL (80.0-94.0); Mean Platelet Volume 10.3 fL (7.4-10.4); Platelet Count 353 10^3/uL (130-400); Red Blood Cell Count 3.48 10^6/uL (4.70-6.10); Red Cell Dist. Width 14.3 % (11.5-14.5); White Blood Cell Count 12.5 10^3/uL (4.8-10.8)
[2024-09-05 04:24] LABS: Blood Urea Nitrogen 18 mg/dl (9-20); Calcium 8.7 mg/dl (8.4-10.2); Carbon Dioxide 30 mmol/L (22-30); Chloride 101 mmol/L (98-107); Estimated Creatinine Clearance 101 ml/min; Glucose 129 mg/dl (70-99); Magnesium 2.3 mg/dl (1.6-2.3); Potassium 4.7 mmol/L (3.5-5.1); Sodium 136 mmol/L (135-145); eGFR > 60.00
--- NOTE | 2024-09-05 04:24 | W.PN.CT ---
Today's Communication / Plan
-
Plan:
-No major issues overnight. Hemodynamically and neurologically intact
-Pt underwent PPM placement yesterday given postop bradycardia/a-fib/10 sec pauses. Site C/D/I without significant hematoma or signs of infection. Arm sling applied
-Converted last night @ 5 after Amiodarone bolus x 1, currently A-paced @ 60 bpm (baseline intrinsic rhythm 50's). Started Lopressor and PO Amiodarone last night post PPM
-Will discuss NOAC/DOAC given postop a-fib, was in a-fib x 20hrs postop
-Had echo yesterday 09/04/24 to reassess valves, showed a well seated AV repair with PG/MG 32/17, mild /AI; well seated MV repair with MG 3, no MR
mild TR, LVEF 55-60%
-Cont. current meds (ASA, Plavix, Crestor, Lopressor, Amiodarone)
-Diabetes education/management following (hgb A1C of 8.6), added Farxiga and Lantus to Metformin
-Acute postop urinary retention, resolved
-Acute postop hyponatremia has resolved
-D/C cordis
-F/U 2-view cxr
-Encourage use of IS
-OOB into chair/Ambulate
-F/U cultures (no growth from tissue cx after 72hrs)
-Cont. Abx per ID (currently on Rocephin, has PICC line)
-Home today
Assessment / Plan
-
Assessment:
-S/p Standard sternotomy with aortic and bicaval cannulation/ Aortic valve evaluation with resection of vegetations, possible Lambl bodies?, And aortic valve repair by plication of the noncoronary cusp/ Radical mitral valve repair [32 mm band
angioplasty, resection of most of P3, primary closure of P3 onto P2, cleft closure P2 P3, commissural plasty at A3 P3 side]/Left atrial appendage exclusion [40 mm clip], by Dr. Chou, 09/01/24, pod#4
-Acute postop bradycardia/a-fib/10sec pauses S/P Dual chamber PPM placement, 09/04/24
-Mitral valve endocarditis (+strep mitis/oralis from culture 08/11)
-Moderate - severe MR
-Mobile vegetations on the aortic valve leaflets, ventricular surface with mild aortic valve insufficiency
-Mild dilated Asc. Aorta (4.1 cm)
-Pulmonary htn
-LVEF 60%, postop 65% per intraop BRENDA
-HTN
-T2DM (hgb A1C 8.6)
-Class 1 obesity (BMI 32)
-HLD
-Bradycardia
-S/P Gastric bypass
-Acute postop blood loss/Anemia (stable without blood transfusion)
-Acute postop atelectasis
-Acute postop hypovolemia with subsequent hypervolemia
-Acuter postop urinary retention, resolved
-Acute postop hyponatremia, 134
-Acute postop a-fib, rate controlled S/P unsuccessful DCCV x 2, 09/04/24
Discussed patient care with: Cardiology, Nursing, Respiratory Therapy, Pharmacy and Care Team
Subjective
Procedure
S/p Standard sternotomy with aortic and bicaval cannulation/ Aortic valve evaluation with resection of vegetations, possible Lambl bodies?, And aortic valve repair by plication of the noncoronary cusp/ Radical mitral valve repair [32 mm band
angioplasty, resection of most of P3, primary closure of P3 onto P2, cleft closure P2 P3, commissural plasty at A3 P3 side]/Left atrial appendage exclusion [40 mm clip], by Dr. Chou, 09/01/24
S/p Dual Chamber PPM placement, 09/04/24
-
Date of Service: September 05, 2024
Pt c/o mild incisional pain, otherwise feels well
Objective Data
-
Lab Results
09/05/24 03:50
09/05/24 03:50
PT 18.3 Sec (11.4-14.6) H 09/01/24 10:57
INR 1.49 09/01/24 10:57
APTT 32.1 Sec (23.4-35.0) 09/01/24 10:57
Vital Signs
Vital Signs
Temp Pulse Resp BP Pulse Ox
98 F 60 14 122/81 96
09/05/24 00:00 09/05/24 03:00 09/05/24 00:00 09/04/24 23:58 09/05/24 03:00
CT Intake/Output/Weight
09/04/24 09/04/24 09/05/24
06:59 18:59 06:59
Intake Total 210 / 895.2 310 / 630 320 / 630
Output Total 875 / 2075 950 / 1875 925 / 1875
Balance -665 / -1179.8 -640 / -1245 -605 / -1245
SaO2: 96 (RA)
Physical Exam
-
General: Awake, Oriented and AOx3
Cardiovascular: Regular rate & rhythm, No Murmurs, No Rub and No Gallop
Respiratory: Decreased Breath Sounds (at bases, otherwise clear)
Sternum: Stable
Incision: Clean, Dry, Intact and Dressing Intact
Extremities: Other (+trace edema)
Data Reviewed
-
Lab Results: Results Reviewed
Medications: Active Meds Reviewed
Chest X-Ray: Report Reviewed and Image Reviewed
ECG: Report Reviewed and Image Reviewed
[2024-09-05 06:00] VITALS: BMI 31.8
[2024-09-05] MEDS: TYLENOL 1000 MG PO (06:09)
[2024-09-05 07:40] VITALS: BP 141/85
[2024-09-05 07:43] LABS: Glucose - Point of Care 141 mg/dl (70-99)
[2024-09-05] MEDS: NOVOLOG FLEXPEN-MODERATE RESISTANCE SC ×2 (07:45→12:45)
[2024-09-05] MEDS: SENOKOT-S PO (07:45)
[2024-09-05] MEDS: NEURONTIN 100 MG PO (07:50)
[2024-09-05] MEDS: PACERONE 200 MG PO (07:50)
[2024-09-05] MEDS: LOPRESSOR 12.5 MG PO (07:50)
[2024-09-05] MEDS: GLUCOPHAGE 1000 MG PO (07:50)
[2024-09-05] MEDS: CRESTOR 5 MG PO (07:50)
[2024-09-05] MEDS: FEOSOL 325 MG PO (07:50)
[2024-09-05] MEDS: VITAMIN C 500 MG PO (07:51)
[2024-09-05] MEDS: PROTONIX 40 MG PO (07:51)
[2024-09-05] MEDS: LANTUS 0.15 UNITS SC (07:51)
[2024-09-05] MEDS: FARXIGA 10 MG PO (07:51)
[2024-09-05] MEDS: LOW STRENGTH ASPIRIN 81 MG PO (07:51)
[2024-09-05] MEDS: BACTROBAN 2% OINTMENT 1 APPLIC NASAL (07:52)
--- NOTE | 2024-09-05 08:04 | PN.DE.MGMTRT ---
Insulin Management
- -
09/05/2024: Diabetes Management Follow up:
Patient admitted with 3-month hx of fever and chills and 31 pound weight loss. 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 Patient electively
admitted 09/01/2024 for MVR and left atrial appendage clip. PMH: HTN, HLD, Obesity s/p gastric bypass (Srinivas-en-Y 15 yrs ago) and T2DM, was taking Metformin 1000mg daily in AM and 500mg in PM and Rybelsus 14mg daily. A1C 8.6% on 08/12/24, Cr 0.8, eGFR
>60.
Patient is awake, alert, oob in chair, offers no complaints, at bedside, able to discuss diabetes mgt.
POD #4 S/P Aortic valve resection of vegetations, possible Lambl bodies and aortic and radical mitral valve repair.
Transitioned off Glycemic protocol on 09/03 to Lantus 15 units and corrective insulin only.
09/04 premeal glucose 148 to 209.
09/05 Fasting glucose 141 Farxiga 10 mg daily and Metformin resumed yesterday at increased PM dose to make it 1000 mg BID.
Cont Lantus 15 units in AM and corrective insulin with meals
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
Demonstrated steps for insulin pen use with good return demonstration. Explained importance of taking lantus daily when he wakes up. To test glucose before each meal and HS and report to his primary doctor. Both patient and verbalize
understanding. He does have a working glucose monitor and supplies at home.
RX for Basaglar (preferred), pen needles, farxiga and metformin in ambulatory orders.
Discussed with patients nurse.
Diabetes History
- -
Type of Diabetes: 2
Pre-Admission Diabetes Regimen
09/05/24
03:50
Creatinine 0.8
Insulin Pump Settings
IP Diabetes Regimen
09/04/24 09/04/24 09/04/24
11:14 13:42 16:48
Glucose
POC Glucose 152 H 152 H 209 H
09/04/24 09/05/24 09/05/24
20:37 03:50 07:41
Glucose 129 H
POC Glucose 148 H 141 H
Meal type: Dinner
Meal type: Lunch
Meal type: Breakfast
Amount consumed: Patient refused
Amount consumed: 100%
Patient Education
--- NOTE | 2024-09-05 08:30 | PTCARENOTE ---
Received from director emergency department RN; AAOx3, responds to RN spontaneously and follows commands; Shallow respirations; Lungs diminished at bases; SpO2 95-97% on RA; A-paced with 1st Degree AVB on monitor; Dual chamber pacemaker settings DDDR 60-130; VSS;
Trace B/L LE edema; +2 radial and DP pulses; Normoactive BS; Surgical sites intact; LUE in sling/immobilizer - patient education reinforced regarding importance of immobilizing LUE for 24 hours following PPM procedure; See nursing documentation for
further details.
--- NOTE | 2024-09-05 08:52 | W.PN.CD ---
Today's Communication / Plan
-
- ASA and Eliquis
- Metoprolol and Amiodarone
- Stable for discharge
Impression / Plan
-
IMPRESSION/PLAN: 69M with HTN and HLD who presented last month with intermittent fevers, chills & weight loss over the last 2 months who was diagnosed with endocarditis. He presents for valve repair.
Outpatient keyboard instrument repairer: Dr. Smith
Aortic valve repair and radical mitral valve repair on 09/01/[address] Chou
-Aortic valve with resection of vegetation (possible Lambl bodies?) and aortic valve repair by plication of the NCC
-Radical MV repair 32 mm band angioplasty, resection of most of P3, primary closure of P3 and P2, cleft closure P2 P3, commissural plasty at A3 P3 side
-Post MV gradient 1 mmHg, pre and post aortic valve mean gradient 10-12 mmHg
Bradycardia,
- Had 10 second pause overnight - symptomatic.
- S/p PPM dual chamber
- Now A paced rhythm
- converted to sinus overnight
- SSS noted- Likely will need atrial pacing.
Paroxysmal AF
-PAF noted
-s/p DCCV x 2 with immediate return of AF
- Now with Amiodarone - in sinus
-s/p KAREN clipped - BRENDA intraop showed no residual KAREN
-Post op condition with Amiodarone and ASA on board.
-On Metoprolol - restarted
-Given scarring noted in RA and difficult to keep in sinus, it is good idea to start Eliquis.
-Consider BRENDA in 3-6 months if remains in sinus and wants to come off the eliquis (KAREN clipped)
Hypertension, follow in the postoperative setting
Strep mitis endocarditis, on ceftriaxone, culture sent, ID following
NIDDM, Hgba1c 8.6%
Prior Srinivas-en-Y bypass
SUBJECTIVE:
Alert and awake. Doing well. Asymptomatic. Ambulating. at rest
Physical Exam
Vital Signs/Labs
Vital Signs
Temp Pulse Resp BP Pulse Ox
98.7 F 60 18 141/85 95
09/05/24 07:44 09/05/24 08:00 09/05/24 08:33 09/05/24 07:40 09/05/24 07:45
09/04/24 09/05/24 09/06/24
06:59 06:59 06:59
Actual Weight 101.4 kg 100.4 kg
09/05/24 03:50
09/05/24 03:50
PT 18.3 Sec (11.4-14.6) H 09/01/24 10:57
INR 1.49 09/01/24 10:57
APTT 32.1 Sec (23.4-35.0) 09/01/24 10:57
Magnesium 2.3 mg/dl (1.6-2.3) 09/05/24 03:50
Physical Exam
Constitutional: No acute distress and Comfortable
EENT: Anicteric and Moist mucous membranes
Cardiovascular: Rhythm & rate is regular, JVD pressure is normal and Systolic murmur absent
Respiratory: Respiratory effort normal, Wheeze Absent and Crackles Absent
GI: Soft, Non tender and Normal bowel sounds
Neuro/Psych: Alert, Oriented and AO x 3
Other: Cardiac Device Site
Data Reviewed
-
Date of Service: September 05, 2024
Medical Decision Making: Reviewed Test Results
EKG: Tracing Personally Visualized and interpreted
Echo: Report Reviewed by me
Labs: Labs Reviewed by me
Old Records: Reviewed
Critical Care Time (in minutes): 35
[2024-09-05 09:42] VITALS: BP 120/75
[2024-09-05] MEDS: NSS IV (09:45)
[2024-09-05 10:22] VITALS: BP 125/70; BP_SYST 96; PULSE 60; O2SAT 95
[2024-09-05 10:50] VITALS: BP 130/76
--- NOTE | 2024-09-05 10:56 | W.[place]-PDMP ---
[place]-PDMP
-
Checked the [place]- Prescription Drug Monitoring Program website, no red flags identified; safe to proceed with prescription.
--- NOTE | 2024-09-05 10:56 | W.DCSUMMARY ---
Discharge Summary
Discharge Data
Date of Admission: 09/01/24
Date of Discharge: 09/05/24
-
Pending Results: No
Hospital Course
Primary care physician: Jesus Mullins
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
Inpatient consultants:
Procedures:
1. 09/01/24 Aortic valve repair by plication of the noncoronary cusp with resection of vegetations,radical mitral valve repair [32 mm band angioplasty, resection of most of P3, primary closure of P3 onto P2, cleft closure P2 P3, commissural plasty
at A3 P3 side], and left atrial appendage exclusion [40 mm clip]
Primary Diagnosis:
1. History of bacteremia and endocarditis of the mitral valve with insufficiency and large mobile vegetation
Secondary Diagnoses:
1. history of infective endocarditis
2. Hypertension
3. DM type II
4. obesity
5. history of Srinivas-en-Y gastric bypass
6. chronic cough
HPI: 69-year-old male presented to [facility] on 08/11 with complaints of fevers, chills, weight loss, weakness, ARMIJO, and cough over the past 2 months. He was at [facility] emergency room about 10 days ago with similar symptoms
and was discharged. He has had intermittent fevers and chills since May and has a 30 pound weight loss. Along with the weight loss patient admits to doing a fecal immunochemical test that was positive for blood and was due to see a
cloth finishing range tender for a colonoscopy on wednesday.
Upon admission, an echocardiogram was performed. TTE showed a LVEF of 65-70% a mildly dilated RV, moderate LA dilatation, and a possible mass on the anterior leaflet of the mitral valve causing mild MR. Therefore CT surgery was consulted for
surgical evaluation. Left heart catheterization on 08/15/2024 showed no significant CAD.
Hospital course: The patient was admitted via same-day admissions on 09/01/24, taken to the OR, underwent aortic valve repair by plication of the noncoronary cusp with resection of vegetations, radical mitral valve repair using a 32 mm angioplasty
ring with resection of P3 and closure of cleft at P3-P2, and left atrial appendage clip with a 40 mm clip. Patient tolerated this procedure well and was transferred to the CVICU in stable condition on dobutamine and Levophed for pressure support.
The dobutamine was quickly weaned off and he was able to be extubated later that afternoon. Postop day 1 his Levophed was weaned off he was noted to be bradycardic in the 40s and 50s which was his preoperative heart rate. Postop day 2 his chest
tubes and wires were removed later that evening into postop day 3 the patient went into atrial fibrillation for which beta-les was administered and the patient had 10-second conversion pauses. EP was consulted on postop day 3 and decided that
the patient would benefit from a permanent pacemaker. Permanent pacemaker was placed later that day and DC cardioversion was attempted 2 times unsuccessfully to convert him to normal sinus rhythm. Beta-les was reinitiated later that evening
and the patient converted to an a paced rhythm in the 60s. There is felt that the patient could safely be discharged home on postop day 4. He will have an interrogation of his permanent pacemaker in 72 hours. If there is signs that he had
episodes of atrial fibrillation he will need to be anticoagulated with Eliquis. He will follow-up with us in the office as scheduled and cardiology in 1 week. He should see his primary care physician as needed. The patient was given explicit
instructions on wound care physical activity and diet.
Home medication changes:
aspirin 81 mg chewable tablet 81 mg PO DAILY Blood Clot Prevention/Tx 08/11/24
benzonatate 100 mg capsule 100 mg PO TIDPRN PRN cough 08/11/24
ipratropium bromide 21 mcg (0.03 %) nasal spray 2 spray intranasal BIDPRN PRN congestion 08/11/24
ondansetron HCl 8 mg tablet 8 mg PO Q8HPRN PRN nausea 08/11/24
rosuvastatin 5 mg tablet 5 mg PO DAILY High Cholesterol 08/11/24
therapeutic multivitamin 1 tab PO DAILY Supplement 08/11/24
dextromethorphan-guaifenesin 30 mg-600 mg tablet extended [id number] hr (Mucinex DM) 1 tab PO Q12H PRN cough 09/01/24
acetaminophen 325 mg tablet 650 mg (2 x 325 mg) PO Q4HPRN PRN mild pain,headache,temp >101F #0 tabs 09/05/24
amiodarone 200 mg tablet 200 mg PO BID #60 tabs 09/05/24
ceftriaxone 2 gram solution for injection 2,000 mg IV Q24H #0 ea 09/05/24
dapagliflozin propanediol 10 mg tablet (Farxiga) 10 mg PO DAILY #30 tabs 09/05/24
insulin glargine 100 unit/mL (3 mL) subcutaneous pen (Basaglar KwikPen U-100 Insulin) 15 unit (0.15 mL) SC DAILY #5 ea 09/05/24
metformin 1,000 mg tablet 1,000 mg PO BID@0800,1700 #60 tabs 09/05/24
metoprolol tartrate 25 mg tablet 12.5 mg (1/2 x 25 mg) PO Q12 #30 tabs 09/05/24
oxycodone 5 mg tablet 5 mg PO Q4HPRN PRN moderate-severe pain #24 tabs 09/05/24
pen needle, diabetic 32 gauge x 5/32' (BD Ultra-Fine Anushka Pen Needle) #100 ea 09/05/24
Discharge Plan
-
Patient Disposition: Home (Routine Discharge)
Discharge Diagnosis/Procedures: endocarditis/mitral regurgitation/mitral valve repair/ELAA/aortic valve repair/permanent pacemaker implantation/
Condition: Good
Diet: Low Fat, Low Cholesterol and Low Sodium
Activity: As tolerated
Driving Restrictions: Not until seen by your Dr
Bathing Restrictions: OK to Shower
Other Services: Cardiac Rehab
Specialty Instructions: Weigh Daily- Call MD for wt gain/loss 3 lbs overnight/5 lbs in 1 week
Activity Restrictions/Additional Instructions:
ACTIVITY:
-No strenuous activity: no heavy lifting, pushing, pulling anything over 15 pounds for one month
-continue to use stairs as tolerated
DRIVING RESTRICTIONS:
-No driving for one month or until approved by your surgeon
WOUND CARE:
-Shower daily. Use soap & water.
-No lotions, creams or powders on incision area.
DIET:
-continue a low fat/low cholesterol diet.
-IF you are diabetic, continue carb controlled diet.
CARDIAC REHAB:
-Please make appointment to start in 5-6 weeks with your local hospital program. (See Cardiac Rehabilitation Discharge Booklet).
SPECIALTY INSTRUCTIONS:
-Weigh yourself daily. Call your physician for any weight gain/loss of 3 lbs overnight or 5 lbs in one week.
-REPORT any clicking noise or uneven appearance of your sternum to your surgeon immediately.
-If you smoke, you are instructed to quit. The [place] smoking hotline phone number is [phone]
Stand Alone Forms: [place] Inst - Implanted Device
Referrals:
CT Transitional Care Nurse [Outside]
(
The Cardiothoracic Transitional Care Nurse will call you to set up a visit in 1-2 days.)
[facility]. Cardiac Rehab [Outside] - 10/04/24 10:00 am
(Cardiac Rehab Orientation appointment is on 10/04/24 at 10:00
The Cardiac Rehab gym is located on the first floor of the [facility].)
[facility] [Outside]
Barbara Sandhu NP [Specified Professional Personl] - 10/09/24 9:40 am
Bernard Mclain MD [Active] - (The cardiology office will call you within 24hrs. to arrange for interrogation of you pacemaker (plan to interrogate pacemaker 72hrs. after discharge))
Jesus Mullins DO [Family Provider] - (Please make an appointment in four to six weeks. )
Thomas Ballard MD [Active] - 09/11/24 10:00 am (Post device incision check appointment)
Jimmy Chou MD [Active] - 10/02/24 1:00 pm
Prescriptions:
New
metformin 1,000 mg Tablet
1,000 mg PO BID@0800,1700 Qty: 60 0RF
insulin glargine [Basaglar KwikPen U-100 Insulin] 100 unit/mL (3 mL) Insulin Pen
15 unit SC DAILY Qty: 5 0RF
Rx Instructions:
E11.65
(DME) pen needle, diabetic [BD Ultra-Fine Anushka Pen Needle] 32 gauge x ' Needle
Qty: 100 0RF
Rx Instructions:
As Directed with Basaglar pen
E11.65
dapagliflozin propanediol [Farxiga] 10 mg Tablet
10 mg PO DAILY Qty: 30 0RF
Rx Instructions:
E11.65
amiodarone 200 mg Tablet
200 mg PO BID Qty: 60 1RF
Rx Instructions:
take one tab twice daily for two weeks, then take one tab daily thereafter.
metoprolol tartrate 25 mg Tablet
12.5 mg PO Q12 Qty: 30 2RF
acetaminophen 325 mg Tablet
650 mg PO Q4HPRN PRN (Reason: mild pain,headache,temp >101F ) Qty: 0 0RF
oxycodone 5 mg Tablet
5 mg PO Q4HPRN PRN (Reason: moderate-severe pain) Qty: 24 0RF
ceftriaxone 2 gram Recon Soln
2,000 mg IV Q24H Qty: 0 0RF
Rx Instructions:
Last dose 09/09/24
Continued
ondansetron HCl 8 mg Tablet
8 mg PO Q8HPRN PRN (Reason: nausea)
therapeutic multivitamin Tablet
1 tab PO DAILY
benzonatate 100 mg Capsule
100 mg PO TIDPRN PRN (Reason: cough)
aspirin 81 mg Tablet,Chewable
81 mg PO DAILY
ipratropium bromide 21 mcg (0.03 %) [place],Non-Aerosol
2 spray INTRANASAL BIDPRN PRN (Reason: congestion)
rosuvastatin 5 mg Tablet
5 mg PO DAILY
Mucinex DM 30-600 mg Tablet Extended Release 12 Hr
1 tab PO Q12H PRN (Reason: cough)
Discontinued
metformin 500 mg Tablet Extended Release 24hr
1,000 mg PO DAILY
metformin 500 mg Tablet Extended Release 24hr
500 mg PO QPM
auhxsaosyk-cqtsphbzx-koiuarokk 40-5-12.5 mg Tablet
1 tab PO DAILY
Rybelsus 14 mg Tablet
14 mg PO DAILY
ceftriaxone 2 gram Recon Soln
2,000 mg IV Q24H Qty: 28 0RF
Discharge Orders:
Discharge Patient (As Directed); Ordered 09/05/24
Ordered By: Sukhi Godwin
Care Plan Goals
Care Plan Goals:
Problem: Readiness for enhanced knowledge related to diagnosis and treatment plan
Goal: Understand your diagnosis and treatment plan needs, including medications if applicable.
Instructions: Know your diagnosis, underlying causes and treatment plan options, including medications if applicable. Consult with your health care team to learn about your diagnosis and treatment plan, including medications if applicable.
Discharge Date and Time
Print Language: SETSWANA
[2024-09-05] MEDS: TYLENOL 650 MG PO (11:10)
--- NOTE | 2024-09-05 11:35 | CM ---
Chart reviewed. Patient is independent of ADLS, lives with his in a [address], 1 [address]IYA, 0 DME. Patient is receiving IV antibiotics from [facility]. Resumption of services faxed to [facility] for IV antibiotics until 09/09/24. Plan is for the
patient to return home with CT Transitional RN and IV antibiotics with his to administer.
--- NOTE | 2024-09-05 12:47 | PTCARENOTE ---
Patient discharged home - states full understanding of discharge instructions and has no further questions at this time. Written prescriptions taken with patient and spouse. Left midline catheter left in place for home IV antibiotics. Telemetry pack
removed. 2 view CXR completed. Shower completed without any complications. Patient does not wish to go over insulin injection with RN prior to discharge and states he is capable of injecting himself. Patient belongings with spouse. Taken by
wheelchair to spouse's car.
== END 2024-09-05 13:04 | disposition home or self-care (01) | DRG 220 ==
LOC: CVICU 04:51
PROVIDERS: Anesthesiology; Internal Medicine Cardiovascular Disease; Nurse Practitioner; ADMITTING PHYSICIAN Thoracic Surgery (Cardiothoracic Vascular Surgery); CONSULT PHYSICIAN Internal Medicine; CONSULT PHYSICIAN Internal Medicine Critical Care Medicine; FAMILY PHYSICIAN Family Medicine; OTHER PHYSICIAN Internal Medicine Infectious Disease
PROC: 02UG0JZ Supplement Mitral Valve with Synthetic Substitute, Open Approach (ICD-10-PCS; 2024-09-01)
PROC: 02L70CK Occlusion of Left Atrial Appendage with Extraluminal Device, Open Approach (ICD-10-PCS; 2024-09-01)
PROC: 02QF0ZZ Repair Aortic Valve, Open Approach (ICD-10-PCS; 2024-09-01)
PROC: 02BF0ZZ Excision of Aortic Valve, Open Approach (ICD-10-PCS; 2024-09-01)
PROC: 02BG0ZZ Excision of Mitral Valve, Open Approach (ICD-10-PCS; 2024-09-01)
PROC: B24BZZ4 Ultrasonography of Heart with Aorta, Transesophageal (ICD-10-PCS; 2024-09-01)
PROC: 5A1221Z Performance of Cardiac Output, Continuous (ICD-10-PCS; 2024-09-01)
PROC: 02HK3JZ Insertion of Pacemaker Lead into Right Ventricle, Percutaneous Approach (ICD-10-PCS; 2024-09-04)
PROC: 0JH606Z Insertion of Pacemaker, Dual Chamber into Chest Subcutaneous Tissue and Fascia, Open Approach (ICD-10-PCS; 2024-09-04)
PROC: 02H63JZ Insertion of Pacemaker Lead into Right Atrium, Percutaneous Approach (ICD-10-PCS; 2024-09-04)
PROC: 5A2204Z Restoration of Cardiac Rhythm, Single (ICD-10-PCS; 2024-09-04)
DX: I33.0 Acute and subacute infective endocarditis (principal); D62 Acute posthemorrhagic anemia; E87.1 Hypo-osmolality and hyponatremia; J98.11 Atelectasis; I48.0 Paroxysmal atrial fibrillation; I49.5 Sick sinus syndrome; E86.1 Hypovolemia; E87.70 Fluid overload, unspecified; R33.8 Other retention of urine; I95.9 Hypotension, unspecified; I08.0 Rheumatic disorders of both mitral and aortic valves; I10 Essential (primary) hypertension; E78.00 Pure hypercholesterolemia, unspecified; E11.9 Type 2 diabetes mellitus without complications; E66.01 Morbid (severe) obesity due to excess calories; I27.20 Pulmonary hypertension, unspecified; B95.4 Other streptococcus as the cause of diseases classified elsewhere; K08.89 Other specified disorders of teeth and supporting structures; R05.3 Chronic cough; I77.810 Thoracic aortic ectasia; Z68.32 Body mass index [BMI] 32.0-32.9, adult; Z98.84 Bariatric surgery status; Z79.82 Long term (current) use of aspirin
CPT/HCPCS: 33208; 71045; 71046; 80048; 81003; 81015; 82330; 82565; 82805; 82810; 82947; 82962; 83735; 84132; 84302; 84520; 85014; 85018; 85025; 85027; 85049; 85610; 85730; 86803; 86850; 86870; 86900; 86901; 86902; 86905; 86920; 86922; 87070; 87075; 87102; 87176; 87205; 93005; 93306; 93312; 93320; 93325; 94002; C1785; C1892; C1898

== ENCOUNTER → 2024-12-13 14:11 | Outpatient (REF) | payer BC, SELFPAY | LOC: RCS 14:11 | PROVIDERS: ATTENDING PHYSICIAN Internal Medicine Cardiovascular Disease; FAMILY PHYSICIAN Family Medicine | DX: Z98.890 Other specified postprocedural states (principal) | CPT/HCPCS: 93306 ==